=== PATIENT | female | born 1935 | race Caucasian/White ===

== ENCOUNTER 2017-11-03 12:16 | Inpatient (IN) | payer OTHER, MEDICARE ==
[2017-11-03] MEDS ORDERED: SODIUM CHLORIDE 0.9% 1000 ML INFUS.BAG IV ONE (13:17)
[2017-11-03] MEDS ORDERED: ONDANSETRON 4 MG/2 ML VIAL IVPUSH ONE (13:17)
[2017-11-03] MEDS ORDERED: ONDANSETRON 4 MG/2 ML VIAL ONE (13:44)
[2017-11-03 13:51] LABS: URINE APPEARANCE Cloudy; URINE BILIRUBIN 3+ (NEGATIVE); URINE BLOOD Negative (NEGATIVE); URINE GLUCOSE (UA) Negative (NEGATIVE); URINE KETONE Trace (NEGATIVE); URINE LEUK ESTERASE Negative (NEGATIVE); URINE NITRITE Negative (NEGATIVE); URINE UROBILINOGEN >=8.0 E.U./dl (0.2-1.0)
[2017-11-03 13:53] LABS: URINE COLOR AMBER; URINE PROTEIN 2+ (NEGATIVE)
[2017-11-03 13:54] LABS: URINE BACTERIA MANY /hpf (NEGATIVE); URINE RBC 0-2 /hpf (0-3)
[2017-11-03 14:56] LABS: HEMATOCRIT 41.9 % (32.4-45.2); HEMOGLOBIN 13.9 GM/dl (10.7-15.3); MCH 27.7 pg (25.7-33.7); MCHC 33.1 g/dl (32.0-36.0); MEAN CELL VOLUME 83.7 fl (80-96); MEAN PLT VOLUME 10.4 fl (7.5-11.1); PLATELET COUNT 391 K/MM3 (134-434); RBC 5.01 M/mm3 (3.60-5.2); RDW 15.6 % (11.6-15.6); WHITE BLOOD COUNT 23.5 K/mm3 (4.0-10.8)
--- NOTE | 2017-11-03 15:42 | PDOC ---
History of Present Illness - General Chief Complaint: Diarrhea Stated Complaint: WEAKNESS DIARRHEA Time Seen by Provider: 11/03/17 12:47 - History of Present Illness Initial Comments: 11/03/17 17:38 80 years old past medical history significant for polio chronic right venous- stasis ulcer who presents to the emergency department with several day history of profuse watery diarrhea. No significant abdominal pain positive nausea no fever mild headache daughter has noticed that she has been eating and drinking less and now appears jaundiced. No travel no 6 contacts no recent hospitalizations no recent antibiotics symptoms are moderate persistent constant no exacerbating alleviating factors Past History - Past Medical History Allergies/Adverse Reactions: Allergies Allergy/AdvReac Type Severity Reaction Status Date / Time famciclovir [From Famvir] Allergy Verified 08/06/15 09:39 Sulfa (Sulfonamide Allergy Verified 08/06/15 09:39 Antibiotics) Home Medications: Ambulatory Orders Ammonium Lactate Lotion [Lac-Hydrin 12] 1 applic TP ASDIR #1 bottle 05/31/16 Cholecalciferol (Vitamin D3) [Vitamin D3] 2,000 unit PO DAILY capsule 03/19/17 Cardiac Disorders: Yes (afib- eliquis) COPD: No HTN: Yes Other medical history: POLIO - Surgical History Orthopedic Surgery: Yes (hip/foot fusion) - Suicide/Smoking/Psychosocial Hx Smoking History: Former smoker Have you smoked in the past 12 months: No If you are a former smoker, when did you quit?: 47 YEARS AGO Information on smoking cessation initiated: No Hx Alcohol Use: No Drug/Substance Use Hx: No Substance Use Type: None Hx Substance Use Treatment: No Review of Systems - Review of Systems Comments:: 11/03/17 17:38 ROS: A complete review of 10 out of 10 review of systems is taken and is negative apart from what is previously mentioned below and in the HPI. *Physical Exam - Vital Signs Last Vital Signs Temp Pulse Resp BP Pulse Ox 98.1 F 87 16 135/90 97 11/03/17 12:18 11/03/17 12:18 11/03/17 12:18 11/03/17 12:18 11/03/17 12:18 - Physical Exam Comments: 11/03/17 17:39 Vitals: Triage Vital signs reviewed General Appearance: no acute distress, well nourished well developed, Head: Atraumatic, Neck: Supple;No Nucal rigidity Chest Wall: Nontender Cardiac: Regular rate and rhythym, no murmurs, no rubs, no gallops, Lungs: Clear to auscultation bilateral, good air movement bilaterally, Abdomen: Soft, non distended, normal bowel sounds, non tender to palpation Extremities: Full range of motion to all extremities, no cyanosis, clubbing, or edema Skin: Warm and dry, + jaundice Neuro: AOX3; Cranial Nerves 2-12 grossly intact, Strength intact to all extremities, Sensation intact to all extremities, Psych: normal mood, normal affect ED Treatment Course - LABORATORY CBC & Chemistry Diagram: 11/03/17 14:00 11/03/17 15:10 - ADDITIONAL ORDERS Additional order review: Laboratory Results 11/03/17 11/03/17 11/03/17 14:00 14:00 13:36 Sodium Cancelled Potassium Cancelled Chloride Cancelled Carbon Dioxide Cancelled Anion Gap Cancelled BUN Cancelled Creatinine Cancelled Creat Clearance w eGFR Cancelled Random Glucose Cancelled Calcium Cancelled Total Bilirubin Cancelled Cancelled Direct Bilirubin Cancelled AST Cancelled ALT Cancelled Alkaline Phosphatase Cancelled Total Protein Cancelled Albumin Cancelled Urine Color Kathi Urine Appearance Cloudy Urine pH 6.0 Ur Specific [place] 1.015 Urine Protein 2+ H Urine Glucose (UA) Negative Urine Ketones Trace Urine Blood Negative Urine Nitrite Negative Urine Bilirubin 3+ H Urine Urobilinogen >=8.0 e.u./dl H Ur Leukocyte Esterase Negative Urine RBC 0-2 Urine WBC 5-10 Ur Epithelial Cells 4-6 Urine Bacteria Many 11/03/17 14:00 RBC 5.01 MCV 83.7 MCHC 33.1 RDW 15.6 MPV 10.4 Neutrophils % No Result Required. Lymphocytes % No Result Required. - RADIOLOGY Radiology Studies Ordered: Category Date Time Status CXRPORT [CHEST X-RAY PORTABLE*] [RAD] Stat Radiology 11/03/17 13:16 Completed - Medications Given in the ED: ED Medications Discontinued Medications Generic Name Dose Route Start Last Admin Trade Name Freq PRN Reason Stop Dose Admin Ondansetron HCl 4 mg 11/03/17 13:17 11/03/17 14:00 Zofran Injection IVPUSH 11/03/17 13:18 4 mg ONCE ONE Administration Sodium Chloride 1,000 ml 11/03/17 13:17 02/12/18 14:11 Normal Saline - IV 11/03/17 13:18 1,000 ml ONCE ONE Administration Medical Decision Making - Critical Care Time Total Critical Care Time (minutes): 45 Critical Care Statement: The care of this patient involved high complexity decision making to prevent further life threatening deterioration of the patient 's condition and/or to evaluate & treat vital organ system(s) failure or risk of failure. - Medical Decision Making 11/03/17 17:39 History examination concerning for jaundice. Given profuse diarrhea we'll check stool cultures C. difficile. No abdominal pain on examination We'll check labs hydrate bilirubin and reassess Reevaluation for p.m. labs notable for elevated bilirubin elevated LFTs elevated alkaline phosphatase and white blood cell count of 23 Patient hemodynamically stable blood cultures and Zosyn ordered for empiric antibiotic coverage Case discussed with Dr. Bejarano gastroenterology Recommends MRCP agrees with antibiotic coverage MRCP ordered radiology called in We'll admit to hospitalist for further management and follow-up of MRCP and additional GI follow-up and consultation *DC/Admit/Observation/Transfer Diagnosis at time of Disposition: Jaundice - Discharge Dispostion Admit: Yes - Referrals Referrals: Umang Marks MD [Primary Care Provider] - - Patient Instructions - Post Discharge Activity
[2017-11-03 15:45] LABS: ALBUMIN 2.8 g/dl (3.5-5.0); ALK PHOS 396 U/L (32-92); ANION GAP 8 (8-16); BILIRUBIN,TOTAL 7.4 mg/dl (0.2-1.0); BLOOD UREA NITROGEN 16 mg/dl (7-18); CALCIUM 8.2 mg/dl (8.4-10.2); CHLORIDE 105 mmol/L (98-107); CO2 25 mmol/L (22-28); CREATININE 0.4 mg/dl (0.6-1.3); GLUCOSE,RANDOM 128 mg/dl (74-106); POTASSIUM 3.3 mmol/L (3.5-5.1); SGOT/AST 61 U/L (10-42); SGPT/ALT 87 U/L (10-40); SODIUM 138 mmol/L (136-145); TOT PROT 6.3 g/dl (6.4-8.3)
[2017-11-03] MEDS ORDERED: PIPERACIL/TAZOB 3.375 GM 3.375 GM/50 ML PREMIX IVPB ONE (16:17)
[2017-11-03] MEDS ORDERED: PIPERACILLIN/TAZOB 3.375 GM 50 ML IVPB ONE (16:30)
[2017-11-03] MEDS ORDERED: PIPERACILLIN/TAZOBACTAM 3.375 GM VIAL IVPB ONE (16:47)
--- NOTE | 2017-11-03 17:22 | CON.GI ---
Consult Consult Specialty:: GI Reason for Consultation:: Jaundice - History of Present Illness History of Present Illness: An 82 yof. Painless jaundice x 3 days and foul smelling diarrhea. No nausea, vomiting, fever, chills. No weight loss in the last 12 months. No dysphagia, odynophagia, dyspepsia. No prior episodes of the the same, no history of pnacreaticobiliary problems. No risk factors for pancreatitis. Labs show cholestasis, leuokocytosis. MRCP consistent with chledocolithiasis, dilated proximal to the stone CBD and cholelithiasis. A 0.6 cm pancreatic cyst communicating with the PD was also described. Took Eliquis in the morning of 09/08. History by the pt and her daughter - History Source History Provided By: Patient, Family Member, Medical Record Limitations to Obtaining History: No Limitations - Alcohol/Substance Use Hx Alcohol Use: No - Smoking History Smoking history: Former smoker Have you smoked in the past 12 months: No If you are a former smoker, when did you quit?: 47 YEARS AGO Home Medications - Allergies Allergies/Adverse Reactions: Allergies Allergy/AdvReac Type Severity Reaction Status Date / Time famciclovir [From Famvir] Allergy Verified 08/06/15 09:39 Sulfa (Sulfonamide Allergy Verified 08/06/15 09:39 Antibiotics) - Home Medications Home Medications: Ambulatory Orders Ammonium Lactate Lotion [Lac-Hydrin 12] 1 applic TP ASDIR #1 bottle 05/31/16 Cholecalciferol (Vitamin D3) [Vitamin D3] 2,000 unit PO DAILY capsule 03/19/17 Family Disease History - Family Disease History Family History: Unremarkable Review of Systems Findings/Remarks: As per HPI, and H&P Physical Exam-GI Vital Signs: Vital Signs Temperature 98.1 F 11/03/17 12:18 Pulse Rate 87 11/03/17 12:18 Respiratory Rate 16 11/03/17 12:18 Blood Pressure 135/90 11/03/17 12:18 O2 Sat by Pulse Oximetry (%) 97 11/03/17 12:18 Constitutional: Yes: Well Nourished, No Distress, Calm Eyes: Yes: Sclera Icterus HENT: Yes: Atraumatic Neck: Yes: Supple Cardiovascular: Yes: Regular Rate and Rhythm Respiratory: Yes: Regular, CTA Bilaterally Gastrointestinal Inspection: No: Ascites, Distention ...Auscultate: Yes: Normoactive Bowel Sounds ...Palpate: Yes: Soft. No: Firm/Rigid, Guarding, Mass, Tenderness, Tenderness, Epigastium, Tenderness, Rebound Neurological: Yes: Alert, Oriented Labs: CBC, BMP 11/03/17 14:00 11/03/17 15:10 Abnormal Lab Results 11/03/17 11/03/17 11/03/17 13:36 14:00 15:10 WBC 23.5 H D Neutrophils % (Manual) 90.0 H Lymphocytes % (Manual) 6.0 L Monocytes % (Manual) 2 L Potassium 3.3 L Anion Gap Creatinine 0.4 L Random Glucose 128 H Calcium 8.2 L Magnesium Total Bilirubin 7.4 H D Direct Bilirubin 5.0 H AST 61 H D ALT 87 H D Alkaline Phosphatase 396 H D Total Protein 6.3 L Albumin 2.8 L D Urine Protein 2+ H Urine Bilirubin 3+ H Urine Urobilinogen >=8.0 e.u./dl H 11/04/17 11/04/17 11/04/17 06:00 07:30 07:45 WBC Neutrophils % (Manual) Lymphocytes % (Manual) Monocytes % (Manual) Potassium 2.8 L* Anion Gap 6 L Creatinine 0.3 L D Random Glucose Calcium 8.0 L Magnesium 1.7 L 1.7 L Total Bilirubin 7.0 H Direct Bilirubin 4.5 H AST 43 H D ALT 61 H D Alkaline Phosphatase 309 H D Total Protein 5.5 L Albumin 2.4 L Urine Protein Urine Bilirubin Urine Urobilinogen Imaging - Results MRI: Report Reviewed Problem List - Problems (1) Choledocholithiasis Code(s): K80.50 - CALCULUS OF BILE DUCT W/O CHOLANGITIS OR CHOLECYST W/O OBST (2) Pancreatic cyst Code(s): K86.2 - CYST OF PANCREAS (3) Anticoagulant long-term use Code(s): Z79.01 - SUSTAINABILITY EXECUTIVE DIRECTOR (CURRENT) USE OF ANTICOAGULANTS (4) History of anticoagulant use Code(s): Z92.29 - PERSONAL HISTORY OF OTHER DRUG THERAPY (5) Atrial fibrillation Code(s): I48.91 - UNSPECIFIED ATRIAL FIBRILLATION Qualifiers: Atrial fibrillation type: unspecified Qualified Code(s): I48.91 - Unspecified atrial fibrillation (6) Infected stasis ulcer of right lower extremity Code(s): I83.219 - VARICOS VN OF R LOW EXTREM W ULC OF UNSP SITE AND INFLAM Assessment/Plan An 82 yof with painless jaundice, cholelithiasis, cholestasis and choledocholithiasis on imaging. Possible concomitant cholangitis given the leukocytosis, however no signs, or symptoms other than jaundice elicited in history or on the exam. Afebrile, not in distress, normal hemodynamics. ERCP Eliquis is on hold (last dose taken in am of 11/03/17) Close monitoring for worsening clinical condition CMP with direct bili, CBC, PT/INR daily Zosyn and flagyl, or as per ID IVF NPO Antiemetic/Pain management PRN Stool for c. diff toxin Work up of the pancreatic cyst noted on MRCP after the acute issues have been addressed Discussed with the patient and her daughter
[2017-11-03] MEDS ORDERED: PANTOPRAZOLE SODIUM 40 MG VIAL IVPUSH ONE (17:24)
[2017-11-03] MEDS: SODIUM CHLORIDE 1,000 ML IV SCH (17:25)
[2017-11-03] MEDS ORDERED: KCL 10 MEQ IVPB 10 MEQ/100 ML INFUS.BAG IVPB SCH (17:30)
[2017-11-03] MEDS ORDERED: PANTOPRAZOLE SODIUM 40 MG VIAL ONE (17:35)
[2017-11-03] MEDS ORDERED: KCL 10 MEQ IVPB 10 MEQ/100 ML INFUS.BAG IVPB ONE (17:35)
[2017-11-03 21:00] LABS: PLATELET ESTIMATE ADEQUATE
[2017-11-03 22:31] VITALS: BMI 27.5
[2017-11-03] MEDS: APIXABAN 2.5 MG TABLET PO SCH ×2 (22:41→22:52)
--- NOTE | 2017-11-03 22:45 | HP ---
CHIEF COMPLAINT: jaundice PCP: [facility] HISTORY OF PRESENT ILLNESS: This is an 82 year old female who presented to the ED with jaundice, decreased po intake x 1 week and LBM. Pt denies any decrease in her intake; however daughter had reports this to the ED staff. Pt states she had one loose bowel movement yesterday evening. None since. She denies any abdominal pain but does report nausea. Denies fever or chills. ER course was notable for: (1) WBC 23.5 (2) T Bili 7.4, D Bili 5.0, AST 61, ALT 87, Alk Phos 396 (3) K 3.3 Recent Travel: pt denies PAST MEDICAL HISTORY: Polio, Chronic RLE venous stasis ulcer, HTN, AFib on Eliquis PAST SURGICAL HISTORY: corrective hip surgery as a child for polio, mult tendon repairs for same Social History: Smoking: pt denies Alcohol: pt denies Drugs: pt denies Family History: mother age 62, uknown ? [place] father in his 70s, peritonitis 3 sisters BrCA 5 sisters alive and well Allergies famciclovir [From Famvir] Allergy (Verified 08/06/15 09:39) Sulfa (Sulfonamide Antibiotics) Allergy (Verified 08/06/15 09:39) HOME MEDICATIONS: 3 Medication Instructions Recorded Ammonium Lactate Lotion 1 applic TP ASDIR #1 bottle 05/31/16 [Lac-Hydrin 12] Cholecalciferol (Vitamin D3) 2,000 unit PO DAILY capsule 03/19/17 [Vitamin D3] REVIEW OF SYSTEMS CONSTITUTIONAL: Present: loss of appetite Absent: fever, chills, diaphoresis, generalized weakness, malaise, weight change HEENT: Absent: rhinorrhea, nasal congestion, throat pain, throat swelling, difficulty swallowing, mouth swelling, ear pain, eye pain, visual changes CARDIOVASCULAR: Absent: chest pain, syncope, palpitations, irregular heart rate, lightheadedness , peripheral edema RESPIRATORY: Absent: cough, shortness of breath, dyspnea with exertion, orthopnea, wheezing, stridor, hemoptysis GASTROINTESTINAL: Present: nausea Absent: abdominal pain, abdominal distension, vomiting, diarrhea, constipation, melena, hematochezia GENITOURINARY: Absent: dysuria, frequency, urgency, hesitancy, hematuria, flank pain, genital pain MUSCULOSKELETAL: Absent: myalgia, arthralgia, joint swelling, back pain, neck pain SKIN: Absent: rash, itching, pallor HEMATOLOGIC/IMMUNOLOGIC: Absent: easy bleeding, easy bruising, lymphadenopathy, frequent infections ENDOCRINE: Absent: unexplained weight gain, unexplained weight loss, heat intolerance, cold intolerance NEUROLOGIC: Absent: headache, focal weakness or paresthesias, dizziness, unsteady gait, seizure, mental status changes, bladder or bowel incontinence PSYCHIATRIC: Absent: anxiety, depression, suicidal or homicidal ideation, hallucinations. PHYSICAL EXAMINATION Vital Signs - 24 hr 3 11/03/17 12:18 Temperature 98.1 F Pulse Rate 87 Respiratory 16 Rate Blood Pressure 135/90 O2 Sat by Pulse 97 Oximetry (%) GENERAL: Awake, alert, and fully oriented, in no acute distress. HEAD: Normal with no signs of trauma. EYES: Pupils equal, round and reactive to light, extraocular movements intact, sclera icteric, conjunctiva clear. No lid lag. EARS, NOSE, THROAT: Ears normal, nares patent, oropharynx clear without exudates. Moist mucous membranes. NECK: Normal range of motion, supple without lymphadenopathy, JVD, or masses. LUNGS: Breath sounds equal, clear to auscultation bilaterally. No wheezes, and no crackles. No accessory muscle use. HEART: Regular rate and rhythm, normal S1 and S2 without murmur, rub or gallop. ABDOMEN: Soft, nontender, not distended, normoactive bowel sounds, no guarding, no rebound, no masses. MUSCULOSKELETAL: Normal range of motion at all joints. No bony deformities or tenderness. No CVA tenderness. UPPER EXTREMITIES: 2+ pulses, warm, well-perfused. No cyanosis. No clubbing. No peripheral edema. LOWER EXTREMITIES: 2+ pulses, warm, well-perfused. No calf tenderness. No peripheral edema left, RLE with mild erythema and 1+ edema below knee 1/[address] way [address] NEUROLOGICAL: Cranial nerves II-XII intact. Normal speech. Normal gait. PSYCHIATRIC: Cooperative. Good eye contact. Appropriate mood and affect. SKIN: Warm, dry, normal turgor, no rashes or lesions noted, normal capillary refill. mild jaundice noted Laboratory Results - last 24 hr 3 11/03/17 11/03/17 11/03/17 13:36 14:00 14:00 WBC 23.5 H D RBC 5.01 Hgb 13.9 Hct 41.9 MCV 83.7 MCH 27.7 MCHC 33.1 RDW 15.6 Plt Count 391 MPV 10.4 Neutrophils % No Result Required. Neutrophils % (Manual) 90.0 H Band Neutrophils % 2.0 Lymphocytes % No Result Required. Lymphocytes % (Manual) 6.0 L Monocytes % (Manual) 2 L Platelet Estimate Adequate Sodium Cancelled Potassium Cancelled Chloride Cancelled Carbon Dioxide Cancelled Anion Gap Cancelled BUN Cancelled Creatinine Cancelled Creat Clearance w eGFR Cancelled Random Glucose Cancelled Lactic Acid Calcium Cancelled Total Bilirubin Cancelled Direct Bilirubin AST Cancelled ALT Cancelled Alkaline Phosphatase Cancelled Total Protein Cancelled Albumin Cancelled Lipase Urine Color Kathi Urine Appearance Cloudy Urine pH 6.0 Ur Specific [place] 1.015 Urine Protein 2+ H Urine Glucose (UA) Negative Urine Ketones Trace Urine Blood Negative Urine Nitrite Negative Urine Bilirubin 3+ H Urine Urobilinogen >=8.0 e.u./dl H Ur Leukocyte Esterase Negative Urine RBC 0-2 Urine WBC 5-10 Ur Epithelial Cells 4-6 Urine Bacteria Many 3 11/03/17 11/03/17 11/03/17 11/03/17 14:00 15:10 15:10 17:00 WBC RBC Hgb Hct MCV MCH MCHC RDW Plt Count MPV Neutrophils % Neutrophils % (Manual) Band Neutrophils % Lymphocytes % Lymphocytes % (Manual) Monocytes % (Manual) Platelet Estimate Sodium 138 Potassium 3.3 L Chloride 105 Carbon Dioxide 25 Anion Gap 8 BUN 16 Creatinine 0.4 L Creat Clearance w eGFR > 60 Random Glucose 128 H Lactic Acid 1.1 Calcium 8.2 L Total Bilirubin Cancelled 7.4 H D Direct Bilirubin Cancelled 5.0 H AST 61 H D ALT 87 H D Alkaline Phosphatase 396 H D Total Protein 6.3 L Albumin 2.8 L D Lipase 121 Urine Color Urine Appearance Urine pH Ur Specific [place] Urine Protein Urine Glucose (UA) Urine Ketones Urine Blood Urine Nitrite Urine Bilirubin Urine Urobilinogen Ur Leukocyte Esterase Urine RBC Urine WBC Ur Epithelial Cells Urine Bacteria ECG Atrial fibrillation vent rate 65, QTC [address]/T wave changes Radiology Reports MRI Abdomen/MRCP IMPRESSION: Choledocholithiasis is identified as discussed above with resultant biliary tract dilatation. Cholelithiasis. 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 Moderate to large hiatal hernia. Reported By: Jaylon Bella MD 11/03/17 [id number] ASSESSMENT/PLAN: 82yF with PMH Polio, Chronic RLE venous stasis ulcer, HTN, AFib on Eliquis presented to the ED with painless jaundice, decreased appetite and nausea. Choledocholithiasis with cholangitis and biliary tract obstruction - GI Dr. Bejarano who recommends transfer to [facility] for ERCP, order placed for same and nursing record press supervisor made aware - Cont flagyl and zosyn as per GI. ID consult placed for approval. - NPO - hold eliquis for procedure ? IPMN on MRI - will need outpatient follow up and work up of same. Afib/HTN - hold eliquis - rate controlled, cont toprol and nifedipine with a sip of water; hold for low BP or HR DVT PPX - restart Eliquis after ERCP if no further surgical intervention indicated FEN - D51/2NS +20 KCl @ 83 cc/hr - K repleted [id number], BMP in am - NPO Dispo: Pt currently requires inpatient management of her emergent condition. Visit type - Emergency Visit Emergency Visit: Yes ED Registration Date: 11/03/17 Care time: The patient presented to the Emergency Department on the above date and was hospitalized for further evaluation of their emergent condition. - New Patient This patient is new to me today: Yes Date on this admission: 11/03/17 - Critical Care Critical Care patient: No Hospitalist Screening - Patient: 50 - 75 years old and never had a screening colonoscopy: No History of colon or rectal polyps, or CA: No History of IBD, Crohn's disease or UC: No History of abdominal radiation therapy as a child: No - Relative: 1 with colon or rectal CA, or polyps at age 60 or younger: Unknown Colon or rectal CA diagnosed at age 45 or younger: Unknown Multiple relatives with colon or rectal CA: Unknown - Outcome: Screening Result: Negative Screen
[2017-11-03] MEDS ORDERED: PIPERACILLIN/TAZOB 3.375 GM/50 ML PRE-DOCKED IVPB ONE (22:47)
[2017-11-04] MEDS: D5-1/2NS+20 MEQ KCL - 20 MEQ/1,000 ML INFUS.BAG IV SCH ×2 (03:36→23:05)
[2017-11-04] MEDS ORDERED: PIPERACILLIN/TAZOB 3.375 GM/50 ML PRE-DOCKED IVPB ONE (06:12)
[2017-11-04 08:18] LABS: ALBUMIN 2.4 g/dl (3.5-5.0); ALK PHOS 309 U/L (32-92); ANION GAP 6 (8-16); BILIRUBIN,DIRECT 4.5 mg/dL (0.0-0.3); BLOOD UREA NITROGEN 10 mg/dl (7-18); CHLORIDE 106 mmol/L (98-107); CO2 25 mmol/L (22-28); CREATININE 0.3 mg/dl (0.6-1.3); GLUCOSE,RANDOM 98 mg/dl (74-106); SGOT/AST 43 U/L (10-42); SGPT/ALT 61 U/L (10-40); SODIUM 137 mmol/L (136-145); TOT PROT 5.5 g/dl (6.4-8.3)
[2017-11-04 08:42] LABS: POTASSIUM 2.8 mmol/L (3.5-5.1)
[2017-11-04 08:51] LABS: BASO % 0.5 % (0-2.0); EOS % 0.9 % (0-4.5); HEMATOCRIT 35.3 % (32.4-45.2); HEMOGLOBIN 11.8 GM/dl (10.7-15.3); LYMPH % 20.2 % (8-40); MCH 27.9 pg (25.7-33.7); MCHC 33.5 g/dl (32.0-36.0); MEAN CELL VOLUME 83.2 fl (80-96); MEAN PLT VOLUME 9.7 fl (7.5-11.1); MONO % 9.1 % (3.8-10.2); NEUT % 69.3 % (42.8-82.8); PLATELET COUNT 295 K/MM3 (134-434); RBC 4.24 M/mm3 (3.60-5.2); RDW 15.4 % (11.6-15.6); WHITE BLOOD COUNT 10.6 K/mm3 (4.0-10.8)
[2017-11-04] MEDS: KCL 10 MEQ IVPB 10 MEQ/100 ML INFUS.BAG IVPB SCH ×3 (09:00→12:28)
[2017-11-04] MEDS ORDERED: MAGNESIUM SULFATE IN WATER 2 GM/50 ML IVPB IVPB ONE (09:30)
--- NOTE | 2017-11-04 09:36 | PN ---
Progress Note (short form) - Note Progress Note: ID Consult dictated 82 year old female admitted with anorexia, watery diarrhea, jaundice. Seen by GI. MRCP ordered, reveals choledocholithiasis and pancreatic cysts. WBC 23K R/O biliary sepsis Leukocytosis ? cellulitis R LE Await c/s Continue empiric zosyn/ flagyl, stat dose vancomycin For ERCP
[2017-11-04] MEDS ORDERED: NIFEdipine E.R. 90 MG TABLET (FP) PO SCH (10:00)
[2017-11-04] MEDS: POTASSIUM CHLORIDE TABS 20 MEQ TABLET.ER (FP) PO ONE ×2 (10:27→10:48)
[2017-11-04] MEDS ORDERED: VANCOMYCIN 1 GRAM (PRE-DOCKED) 1,000 MG/250 ML BAG IVPB ONE (10:30)
[2017-11-04] MEDS: NIFEdipine E.R. 90 MG TABLET (FP) PO SCH (10:48)
--- NOTE | 2017-11-04 10:59 | PN ---
Physical Exam: SUBJECTIVE: Patient seen and examined, ambulatory at bedside, denies any abdominal pain OBJECTIVE: patient is a 82 y/o female with a past medical history of Polio, Chronic RLE venous stasis ulcer, HTN, AFib on Eliquis. patient was admitted from the emergency department for emergent condition. Vital Signs Period Temp Pulse Resp BP Sys/Sequeira Pulse Ox Last 24 Hr 97.8 F-98.9 F 67-87 16-20 119-135/56-90 96-97 GENERAL: The patient is awake, alert, and fully oriented, in no acute distress. HEAD: Normal with no signs of trauma. EYES: PERRL, extraocular movements intact, sclera icteric, conjunctiva clear. No ptosis. ENT: Ears normal, nares patent, oropharynx clear without exudates, moist mucous membranes. NECK: Trachea midline, full range of motion, supple. LUNGS: Breath sounds equal, clear to auscultation bilaterally, no wheezes, no crackles, no accessory muscle use. HEART: irregular rate and rhythm, S1, S2 without murmur, rub or gallop. ABDOMEN: Soft, nontender, nondistended, normoactive bowel sounds, no guarding, no rebound, no hepatosplenomegaly, no masses. EXTREMITIES: 2+ pulses, warm, well-perfused, no edema. NEUROLOGICAL: Cranial nerves II through XII grossly intact. Normal speech, gait not observed. PSYCH: Normal mood, normal affect. SKIN: Warm, dry, normal turgor, no rashes or lesions noted Laboratory Results - last 24 hr CBC WBC 10.6 K/mm3 (4.0-10.8) D 11/04/17 07:45 RBC 4.24 M/mm3 (3.60-5.2) 11/04/17 07:45 Hgb 11.8 GM/dl (10.7-15.3) D 11/04/17 07:45 Hct 35.3 % (32.4-45.2) D 11/04/17 07:45 MCV 83.2 fl (80-96) 11/04/17 07:45 MCH 27.9 pg (25.7-33.7) 11/04/17 07:45 MCHC 33.5 g/dl (32.0-36.0) 11/04/17 07:45 RDW 15.4 % (11.6-15.6) 11/04/17 07:45 Plt Count 295 K/MM3 (134-434) 11/04/17 07:45 MPV 9.7 fl (7.5-11.1) 11/04/17 07:45 Neutrophils % 69.3 % (42.8-82.8) 11/04/17 07:45 Neutrophils % (Manual) 90.0 % (42.8-82.8) H 11/03/17 14:00 Band Neutrophils % 2.0 % (0-10) 11/03/17 14:00 Lymphocytes % 20.2 % (8-40) 11/04/17 07:45 Lymphocytes % (Manual) 6.0 % (8-40) L 11/03/17 14:00 Monocytes % 9.1 % (3.8-10.2) 11/04/17 07:45 Monocytes % (Manual) 2 % (3.8-10.2) L 11/03/17 14:00 Eosinophils % 0.9 % (0-4.5) 11/04/17 07:45 Basophils % 0.5 % (0-2.0) 11/04/17 07:45 Platelet Estimate Adequate 11/03/17 14:00 CMP Sodium 137 mmol/L (136-145) 11/04/17 07:45 Potassium 2.8 mmol/L (3.5-5.1) L* 11/04/17 07:45 Chloride 106 mmol/L (98-107) 11/04/17 07:45 Carbon Dioxide 25 mmol/L (22-28) 11/04/17 07:45 Anion Gap 6 (8-16) L 11/04/17 07:45 BUN 10 mg/dl (7-18) D 11/04/17 07:45 Creatinine 0.3 mg/dl (0.6-1.3) L D 11/04/17 07:45 Creat Clearance w eGFR > 60 (>60) 11/04/17 07:45 Random Glucose 98 mg/dl (74-106) D 11/04/17 07:45 Lactic Acid 1.1 mmol/L (0.0-2.0) 11/03/17 15:10 Calcium 8.0 mg/dl (8.4-10.2) L 11/04/17 07:45 Phosphorus 2.9 mg/dl (2.5-4.6) 11/04/17 06:00 Magnesium 1.7 mg/dL (1.8-2.4) L 11/04/17 07:30 Total Bilirubin 7.0 mg/dl (0.2-1.0) H 11/04/17 07:45 Direct Bilirubin 4.5 mg/dL (0.0-0.3) H 11/04/17 07:45 AST 43 U/L (10-42) H D 11/04/17 07:45 ALT 61 U/L (10-40) H D 11/04/17 07:45 Alkaline Phosphatase 309 U/L (32-92) H D 11/04/17 07:45 Total Protein 5.5 g/dl (6.4-8.3) L 11/04/17 07:45 Albumin 2.4 g/dl (3.5-5.0) L 11/04/17 07:45 Lipase 121 U/L (73-393) 11/03/17 17:00 Active Medications Generic Name Dose Route Start Last Admin Trade Name Freq PRN Reason Stop Dose Admin Sodium Chloride 1,000 mls @ 75 mls/hr 11/03/17 17:30 11/03/17 17:25 Normal Saline - IV 75 mls/hr ASDIR [facility] Administration Metronidazole 500 mg in 100 mls @ 100 mls/hr 11/04/17 03:00 11/04/17 10:27 Flagyl 500mg Premixed Ivpb - IVPB 100 mls/hr Q6H-IV [facility] Administration Potassium Chloride/Dextrose/Sod Cl 20 meq in 1,000 mls @ 83 mls/hr 11/04/17 02 :30 11/04/17 03:36 D5-1/2ns+20 Meq Kcl - IV 83 mls/hr ASDIR [facility] Administration Potassium Chloride 10 meq in 100 mls @ 100 mls/hr 11/04/17 09:05 11/04/17 10: 49 Potassium Chloride 10 Meq Premix Ivpb - IVPB 11/04/17 12:04 100 mls/hr Q60M [facility] Administration Piperacillin Sod/Tazobactam Sod 3.375 gm in 50 mls @ 100 mls/hr 11/04/17 18: 00 Zosyn 3.375gm Ivpb (Pre-Docked) IVPB Q8H-IV [facility] Protocol Vancomycin HCl 1,000 mg in 250 mls @ 200 mls/hr 11/04/17 10:30 11/04/17 10:49 Vancomycin (Pre-Docked) IVPB 11/04/17 11:44 200 mls/hr ONCE ONE Administration Metoprolol Succinate 50 mg 11/04/17 10:00 11/04/17 10:50 Toprol Xl - PO 50 mg DAILY [facility] Administration Nifedipine 90 mg 11/04/17 10:00 11/04/17 10:48 Procardia Xl - PO 90 mg DAILY [facility] Administration ECG Atrial fibrillation vent rate 65, QTC [address]/T wave changes Radiology Reports MRI Abdomen/MRCP IMPRESSION: Choledocholithiasis is identified as discussed above with resultant biliary tract dilatation. Cholelithiasis. 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 Moderate to large hiatal hernia. Reported By: Jaylon Bella MD 11/03/17 0313 ASSESSMENT/PLAN: 1) GI Choledocholithiasis with cholangitis and biliary tract obstruction - pending ercp - GI Dr. Bejarano consulted and followed - leukocytosis improving, pending blood cultures, continue zosyn and NKECHI ennis (Sanjiv) consulted and following - keep npo -->ivf ? IPMN on MRI - ca 19.9 ordered - pending ercp for biopsy - will need outpatient follow up and work up of same. 2) cardiovascular Afib/HTN - hold eliquis, pending procedure - rate controlled, cont toprol and nifedipine with a sip of water; hold for low BP or HR DVT PPX - restart Eliquis after ERCP if no further surgical intervention indicated FEN - D51/2NS +20 KCl @ 83 cc/hr - hyokalemia, replete potassium 10meq x 3, with po potassium, repeat bmp at 1600 - NPO Dispo: Pt currently requires inpatient management of her emergent condition. [facility] full code Visit type - Emergency Visit Emergency Visit: Yes ED Registration Date: 11/03/17 Care time: The patient presented to the Emergency Department on the above date and was hospitalized for further evaluation of their emergent condition. - New Patient This patient is new to me today: Yes Date on this admission: 11/04/17 - Critical Care Critical Care patient: No - Discharge Referral Referred to [facility] No
[2017-11-04 11:31] LABS: MAGNESIUM 1.7 mg/dL (1.8-2.4); PHOSPHOROUS 2.9 mg/dl (2.5-4.6)
--- NOTE | 2017-11-04 12:36 | PN ---
Progress Note, Physician History of Present Illness: Clinically the same. Jaundiced, otherwise asymptomatic. Diarrhea improved. Leukocytosis improved. Liver profile marginally better. Daughter at bedside - Current Medication List Current Medications: Active Medications Sodium Chloride (Normal Saline -) 1,000 mls @ 75 mls/hr IV ASDIR [facility] Last Admin: 11/03/17 17:25 Dose: 75 mls/hr Metronidazole (Flagyl 500mg Premixed Ivpb -) 500 mg in 100 mls @ 100 mls/hr IVPB Q6H-IV [facility] Last Admin: 11/04/17 10:27 Dose: 100 mls/hr Potassium Chloride/Dextrose/Sod Cl (D5-1/2ns+20 Meq Kcl -) 20 meq in 1,000 mls @ 83 mls/hr IV ASDIR [facility] Last Admin: 11/04/17 03:36 Dose: 83 mls/hr Piperacillin Sod/Tazobactam Sod (Zosyn 3.375gm Ivpb (Pre-Docked)) 3.375 gm in 50 mls @ 100 mls/hr IVPB Q8H-IV [facility] PRN Reason: Protocol Metoprolol Succinate (Toprol Xl -) 50 mg PO DAILY [facility] Last Admin: 11/04/17 10:50 Dose: 50 mg Nifedipine (Procardia Xl -) 90 mg PO DAILY [facility] Last Admin: 11/04/17 10:48 Dose: 90 mg - Objective Vital Signs: Vital Signs Temperature 97.8 F 11/04/17 06:00 Pulse Rate 80 11/04/17 06:00 Respiratory Rate 20 11/04/17 08:25 Blood Pressure 119/56 11/04/17 06:00 O2 Sat by Pulse Oximetry (%) 96 11/04/17 08:25 Constitutional: Yes: Well Nourished, No Distress, Calm Eyes: Yes: Sclera Icterus HENT: Yes: Atraumatic Neck: Yes: Supple Respiratory: Yes: Regular Gastrointestinal: Yes: Normal Bowel Sounds, Soft. No: Ascites, Distention, Melena, Tenderness, Vomiting Neurological: Yes: Alert, Oriented Labs: CBC, BMP 11/04/17 07:45 11/04/17 07:45 CBCD WBC 10.6 K/mm3 (4.0-10.8) D 11/04/17 07:45 RBC 4.24 M/mm3 (3.60-5.2) 11/04/17 07:45 Hgb 11.8 GM/dl (10.7-15.3) D 11/04/17 07:45 Hct 35.3 % (32.4-45.2) D 11/04/17 07:45 MCV 83.2 fl (80-96) 11/04/17 07:45 MCHC 33.5 g/dl (32.0-36.0) 11/04/17 07:45 RDW 15.4 % (11.6-15.6) 11/04/17 07:45 Plt Count 295 K/MM3 (134-434) 11/04/17 07:45 MPV 9.7 fl (7.5-11.1) 11/04/17 07:45 CMP Sodium 137 mmol/L (136-145) 11/04/17 07:45 Potassium 2.8 mmol/L (3.5-5.1) L* 11/04/17 07:45 Chloride 106 mmol/L (98-107) 11/04/17 07:45 Carbon Dioxide 25 mmol/L (22-28) 11/04/17 07:45 Anion Gap 6 (8-16) L 11/04/17 07:45 BUN 10 mg/dl (7-18) D 11/04/17 07:45 Creatinine 0.3 mg/dl (0.6-1.3) L D 11/04/17 07:45 Creat Clearance w eGFR > 60 (>60) 11/04/17 07:45 Calcium 8.0 mg/dl (8.4-10.2) L 11/04/17 07:45 Total Bilirubin 7.0 mg/dl (0.2-1.0) H 11/04/17 07:45 AST 43 U/L (10-42) H D 11/04/17 07:45 ALT 61 U/L (10-40) H D 11/04/17 07:45 Alkaline Phosphatase 309 U/L (32-92) H D 11/04/17 07:45 Total Protein 5.5 g/dl (6.4-8.3) L 11/04/17 07:45 Albumin 2.4 g/dl (3.5-5.0) L 11/04/17 07:45 Problem List - Problems (1) Choledocholithiasis Code(s): K80.50 - CALCULUS OF BILE DUCT W/O CHOLANGITIS OR CHOLECYST W/O OBST (2) Pancreatic cyst Code(s): K86.2 - CYST OF PANCREAS (3) Anticoagulant long-term use Code(s): Z79.01 - ODD PIECE CHECKER (CURRENT) USE OF ANTICOAGULANTS (4) History of anticoagulant use Code(s): Z92.29 - PERSONAL HISTORY OF OTHER DRUG THERAPY (5) Atrial fibrillation Code(s): I48.91 - UNSPECIFIED ATRIAL FIBRILLATION Qualifiers: Atrial fibrillation type: unspecified Qualified Code(s): I48.91 - Unspecified atrial fibrillation (6) Infected stasis ulcer of right lower extremity Code(s): I83.219 - VARICOS VN OF R LOW EXTREM W ULC OF UNSP SITE AND INFLAM Assessment/Plan Remains clinically stable. ERCP in AM tomorrow (Eliquis) Close monitoring for worsening clinical condition CMP with direct bili, CBC, PT/INR daily Zosyn and flagyl, or as per ID IVF NPO Antiemetic/Pain management PRN Stool for c. diff toxin Work up of the pancreatic cyst noted on MRCP after the acute issues have been addressed Discussed with the patient and her daughter
--- NOTE | 2017-11-04 14:03 | EKG ---
Test Reason : Blood Pressure : / mmHG Vent. Rate : 065 BPM Atrial Rate : 079 BPM P-R Int : 000 ms QRS Dur : 100 ms QT Int : 422 ms P-R-T Axes : 000 -28 023 degrees QTc Int : 438 ms ATRIAL FIBRILLATION INFERIOR INFARCT , AGE UNDETERMINED ABNORMAL ECG NO PREVIOUS ECGS AVAILABLE Confirmed by MD Deena, Sincere ([id number]) on 11/04/2017 2:02:55 PM Referred By: Genny TRIPP Confirmed By:Sincere Shaffer MD
[2017-11-04 17:15] LABS: ANION GAP 6 (8-16); BLOOD UREA NITROGEN 8 mg/dl (7-18); CALCIUM 8.3 mg/dl (8.4-10.2); CHLORIDE 104 mmol/L (98-107); CO2 24 mmol/L (22-28); CREATININE 0.3 mg/dl (0.6-1.3); GLUCOSE,RANDOM 82 mg/dl (74-106); SODIUM 134 mmol/L (136-145)
[2017-11-04] MEDS ORDERED: PT OWN MED DRAWER 7, Y5N ONE (17:20)
[2017-11-04] MEDS: SODIUM CHLORIDE 1,000 ML IV SCH (17:34)
[2017-11-04] MEDS ORDERED: PIPERACILLIN/TAZOB 3.375 GM 3.375 GM/50 ML BAG IVPB SCH (18:00)
--- NOTE | 2017-11-04 23:21 | HOSP ---
Subjective - Review of Symptoms Events since last encounter: Pt transferred from [facility]/Surg to [facility] for ERCP in am tomorrow. Subjective: Pt reports no acute complaints on exam. Continues with no appetite. Denies pain. General: No: Chills Cardiovascular: No: Chest Pain Gastrointestinal: No: Nausea, Vomiting, Abdominal Pain, Diarrhea Physical Examination Vital Signs: Vital Signs Temperature 98.3 F 11/04/17 21:51 Pulse Rate 74 11/04/17 21:51 Respiratory Rate 18 11/04/17 21:51 Blood Pressure 118/81 11/04/17 21:51 O2 Sat by Pulse Oximetry (%) 95 11/04/17 20:28 Constitutional: Yes: No Distress, Calm Eyes: Yes: Sclera Icterus Cardiovascular: Yes: Regular Rate and Rhythm, S1, S2 Respiratory: Yes: CTA Bilaterally Gastrointestinal: Yes: Normal Bowel Sounds, Soft. No: Tenderness Edema: Yes Edema: RLE: Trace (+ slight erythema) Peripheral Pulses: Left Radial: 2+, Right Radial: 2+, Left Doralis Pedis: 2+, Right Dorsalis Pedis: 2+ Labs: CBC, BMP 11/04/17 07:45 11/04/17 16:05 Hospitalist Encounter Assessment: 82yF with PMH Polio, Chronic RLE venous stasis ulcer, HTN, AFib on Eliquis presented to the ED with painless jaundice, decreased appetite and nausea. Choledocholithiasis with cholangitis and biliary tract obstruction - Cont flagyl and zosyn - NPO - hold eliquis for procedure ? IPMN on MRI - will need outpatient follow up and work up of same. Afib/HTN - hold eliquis - rate controlled, cont toprol and nifedipine with a sip of water; hold for low BP or HR DVT PPX - restart Eliquis after ERCP if no further surgical intervention indicated FEN - D51/2NS +20 KCl @ 83 cc/hr - K repleted, now WNL, BMP in am - NPO
[2017-11-05] MEDS ORDERED: PT OWN MED DRAWER 7, Y5N ONE ×3 (01:13→17:17)
[2017-11-05] MEDS: PIPERACILLIN/TAZOB 3.375 GM 3.375 GM in DEXTROSE 5%-WATER - 50 ML IVPB SCH ×3 (02:32→17:20)
[2017-11-05] MEDS: D5-1/2NS+20 MEQ KCL - 20 MEQ/1,000 ML INFUS.BAG IV SCH (02:32)
[2017-11-05 07:54] LABS: BASO % 0.6 % (0-2.0); EOS % 1.4 % (0-4.5); HEMATOCRIT 39.3 % (32.4-45.2); HEMOGLOBIN 12.6 GM/dL (10.7-15.3); LYMPH % 27.8 % (8-40); MCH 26.9 pg (25.7-33.7); MEAN CELL VOLUME 84.1 fl (80-96); MEAN PLT VOLUME 9.9 fl (7.5-11.1); MONO % 9.9 % (3.8-10.2); NEUT % 60.3 % (42.8-82.8); PLATELET COUNT 353 K/MM3 (134-434); RBC 4.68 M/mm3 (3.60-5.2); RDW 16.3 % (11.6-15.6); WHITE BLOOD COUNT 11.2 K/mm3 (4.0-10.0)
[2017-11-05 08:03] LABS: INR 1.12 (0.82-1.09); PROTHROMBIN TIME (PATIENT) 12.6 SEC (9.98-11.88)
[2017-11-05 08:12] LABS: MAGNESIUM 2.3 mg/dL (1.8-2.4); PHOSPHOROUS 2.8 mg/dL (2.5-4.9)
[2017-11-05 08:29] LABS: CHLORIDE 105 mmol/L (98-107); POTASSIUM 3.8 mmol/L (3.5-5.1); SODIUM 139 mmol/L (136-145)
[2017-11-05 08:35] LABS: ALBUMIN 2.6 g/dl (3.4-5.0); ALK PHOS 421 U/L (45-117); ANION GAP 10 (8-16); BILIRUBIN,DIRECT 3.4 mg/dL (0.0-0.2); BILIRUBIN,TOTAL 4.3 mg/dL (0.2-1.0); BLOOD UREA NITROGEN 7 mg/dL (7-18); CALCIUM 8.3 mg/dL (8.5-10.1); CO2 24 mmol/L (21-32); CREATININE 0.4 mg/dL (0.55-1.02); GLUCOSE,RANDOM 82 mg/dL (74-106); SGOT/AST 36 U/L (15-37); SGPT/ALT 64 U/L (12-78); TOT PROT 6.2 g/dl (6.4-8.2)
--- NOTE | 2017-11-05 09:06 | CON.GI ---
Consult Consult Specialty:: Gastroenterology -ERCP Referred by:: Dr Bejarano Reason for Consultation:: ERCP - History of Present Illness Chief Complaint: Diarrhea and painless jaundice History of Present Illness: 82F is admitted for diarrhea and painless jaundice. She is C diff negative. MRCP revealed a stone in the distal CBD as well as gallstones and pancreatic cysts that may be IPMNs. Sydney Lenz denies any abdominal pain at present. Her Eliquis was stopped 48 hours ago. No h/o liver disease. I have discussed the need for ERCP to extract the CBD stone with Caitlyn Lenz and then by phone with her daughter, [place]. I explained that there is a 5 - 15% risk of complications associated with ERCP that include perforation, hemorrhage and pancreatitis leading to multiple organ failure. They have mutually consented. I anticipate doing it at 11AM today. She had colonoscopy with Dr. Reynolds but cannot recall the results. - History Source History Provided By: Patient, Family Member Limitations to Obtaining History: No Limitations - Past Medical History Cardio/Vascular: Yes: AFIB, HTN Gastrointestinal: Yes: Other (Pancreatic cysts) Hepatobiliary: Yes: Cholelithiasis, Choledocholithiasis ...LMP Comment: 82 YEARS OLD ...: No Musculoskeletal: Yes: Other (Polio acquired age 6 months RLE, Has right hip and ankle fusions and multiple ligament surgeries. Has chronic RLE ulcer. ) Rheumatology: Yes: Other - Past Surgical History Past Surgical History: Yes: (C section x 3) Additional Surgical History: Right hip and ankle fusions and mutiple ligament repairs RLE required for polio - Alcohol/Substance Use Hx Alcohol Use: Yes (rare; wine on holidays) - Smoking History Smoking history: Former smoker Have you smoked in the past 12 months: No If you are a former smoker, when did you quit?: 47 YEARS AGO - Social History Usual Living Arrangement: With Child ADL: Family Assistance Occupation: retired secratary Place of : [employer] [employer] History of Recent Travel: No Home Medications - Allergies Allergies/Adverse Reactions: Allergies Allergy/AdvReac Type Severity Reaction Status Date / Time famciclovir [From Famvir] Allergy Verified 08/06/15 09:39 Sulfa (Sulfonamide Allergy Verified 08/06/15 09:39 Antibiotics) - Home Medications Home Medications: Ambulatory Orders Ammonium Lactate Lotion [Lac-Hydrin 12] 1 applic TP ASDIR #1 bottle 05/31/16 Cholecalciferol (Vitamin D3) [Vitamin D3] 2,000 unit PO DAILY capsule 03/19/17 Family Disease History - Family Disease History Family Disease History: Heart Disease: Mother ( heart failure 84), CA: Sister (breast, lung oral cancers), Other: Father ( of sepsis) Review of Systems - Review of Systems Constitutional: reports: Weakness Eyes: reports: No Symptoms HENT: reports: No Symptoms Neck: reports: No Symptoms Cardiovascular: reports: No Symptoms Respiratory: reports: No Symptoms Gastrointestinal: reports: Diarrhea Musculoskeletal: reports: No Symptoms Integumentary: reports: Wound (RLE chrnic ulcer related to polio followed in wound care center) Neurological: reports: No Symptoms Physical Exam-GI Vital Signs: Vital Signs Temperature 98.1 F 11/05/17 06:50 Pulse Rate 74 11/05/17 06:50 Respiratory Rate 20 11/05/17 06:50 Blood Pressure 138/71 11/05/17 06:50 O2 Sat by Pulse Oximetry (%) 95 11/04/17 23:00 CBC,CMP WBC 11.2 K/mm3 (4.0-10.0) H 11/05/17 06:00 RBC 4.68 M/mm3 (3.60-5.2) 11/05/17 06:00 Hgb 12.6 GM/dL (10.7-15.3) 11/05/17 06:00 Hct 39.3 % (32.4-45.2) 11/05/17 06:00 MCV 84.1 fl (80-96) 11/05/17 06:00 MCH 26.9 pg (25.7-33.7) 11/05/17 06:00 MCHC 32.0 g/dl (32.0-36.0) 11/05/17 06:00 RDW 16.3 % (11.6-15.6) H 11/05/17 06:00 Plt Count 353 K/MM3 (134-434) 11/05/17 06:00 MPV 9.9 fl (7.5-11.1) 11/05/17 06:00 Neutrophils % 60.3 % (42.8-82.8) 11/05/17 06:00 Neutrophils % (Manual) 90.0 % (42.8-82.8) H 11/03/17 14:00 Band Neutrophils % 2.0 % (0-10) 11/03/17 14:00 Lymphocytes % 27.8 % (8-40) 11/05/17 06:00 Lymphocytes % (Manual) 6.0 % (8-40) L 11/03/17 14:00 Monocytes % 9.9 % (3.8-10.2) 11/05/17 06:00 Monocytes % (Manual) 2 % (3.8-10.2) L 11/03/17 14:00 Eosinophils % 1.4 % (0-4.5) 11/05/17 06:00 Basophils % 0.6 % (0-2.0) 11/05/17 06:00 Platelet Estimate Adequate 11/03/17 14:00 Sodium 139 mmol/L (136-145) 11/05/17 06:00 Potassium 3.8 mmol/L (3.5-5.1) 11/05/17 06:00 Chloride 105 mmol/L (98-107) 11/05/17 06:00 Carbon Dioxide 24 mmol/L (21-32) 11/05/17 06:00 Anion Gap 10 (8-16) 11/05/17 06:00 BUN 7 mg/dL (7-18) 11/05/17 06:00 Creatinine 0.4 mg/dL (0.55-1.02) L 11/05/17 06:00 Creat Clearance w eGFR > 60 (>60) 11/05/17 06:00 Random Glucose 82 mg/dL (74-106) 11/05/17 06:00 Lactic Acid 1.1 mmol/L (0.0-2.0) 11/03/17 15:10 Calcium 8.3 mg/dL (8.5-10.1) L 11/05/17 06:00 Phosphorus 2.8 mg/dL (2.5-4.9) 11/05/17 06:00 Magnesium 2.3 mg/dL (1.8-2.4) 11/05/17 06:00 Total Bilirubin 4.3 mg/dL (0.2-1.0) H 11/05/17 06:00 Direct Bilirubin 3.4 mg/dL (0.0-0.2) H 11/05/17 06:00 AST 36 U/L (15-37) 11/05/17 06:00 ALT 64 U/L (12-78) 11/05/17 06:00 Alkaline Phosphatase 421 U/L (45-117) H 11/05/17 06:00 Total Protein 6.2 g/dl (6.4-8.2) L 11/05/17 06:00 Albumin 2.6 g/dl (3.4-5.0) L 11/05/17 06:00 Lipase 121 U/L (73-393) 11/03/17 17:00 Current Medications Generic Name Dose Route Start Last Admin Trade Name Freq PRN Reason Stop Dose Admin Metronidazole 500 mg in 100 mls @ 100 mls/hr 11/04/17 03:00 11/05/17 03:29 Flagyl 500mg Premixed Ivpb - IVPB 100 mls/hr Q6H-IV [facility] Administration Potassium Chloride/Dextrose/Sod Cl 20 meq in 1,000 mls @ 83 mls/hr 11/04/17 02 :30 11/05/17 02:32 D5-1/2ns+20 Meq Kcl - IV Not Given ASDIR [facility] Piperacillin Sod/Tazobactam 50 mls @ 100 mls/hr 11/05/17 02:00 11/05/17 02:32 Sod 3.375 gm/ Dextrose IVPB 100 mls/hr Q8H-IV [facility] Administration Protocol Metoprolol Succinate 50 mg 11/04/17 10:00 11/04/17 10:50 Toprol Xl - PO 50 mg DAILY [facility] Administration Nifedipine 90 mg 11/04/17 10:00 11/04/17 10:48 Procardia Xl - PO 90 mg DAILY [facility] Administration Constitutional: Yes: No Distress Eyes: Yes: Sclera Icterus HENT: Yes: Normocephalic Neck: Yes: Trachea Midline Cardiovascular: Yes: Pulse Irregular, S1 (wnl), S2 (wnl) Respiratory: Yes: CTA Bilaterally Gastrointestinal Inspection: Yes: Scars (healed vertical suprpaubic incision) ...Auscultate: Yes: Normoactive Bowel Sounds ...Palpate: Yes: Soft, Other (nontender) ...Rectal Exam: Yes: Deferred (to Dr Bejarano) Labs: CBC, BMP 11/05/17 06:00 INR, PTT INR 1.12 (0.82-1.09) 11/05/17 06:00 Imaging - Results MRI: Report Reviewed (Marlon Cesar Name: SYDNEY KANG DEPARTMENT OF RADIOLOGY Phys: Bert Lora MD : [id number] Age: 82 Sex: F [facility] Acct: [id number] Loc: FM/S [address] Exam Date: 11/03/17 Status: [place] [address] Unit Number: [id number] EXAM#: TYPE/EXAM: RESULT: [id number] MRI/ABDOMEN MRI WITH CONTRAST/MRCP ABDOMEN MRI (without and with contrast) / MRCP Clinical information: obstructive jaundice Multiplanar , multiphase imaging was performed following the intravenous administration of paramagnetic contrast in addition to standard noncontrast pulse sequences. MRCP was obtained utilizing fast suppressed heavily T2-weighted fast spin-echo pulse sequences with cholangiographic and tomographic technique. No prior imaging studies are available at this facility for direct comparison. An approximately 0.8 cm calculus is seen within the common bile duct adjacent to the level of the ampulla. The more proximal common bile duct is dilated with a 1.5 cm maximum luminal diameter. There is mild intrahepatic biliary tract dilatation. Gallbladder overdistention is also noted. Several gallbladder calculi are seen. There is no definite gallbladder wall edema or pericholecystic fluid accumulation. The main pancreatic duct diameter appears borderline measuring 0.3 cm. Several small pancreatic body cysts are noted the most prominent measuring 0.6 x 0.3 cm. No obvious associated soft tissue nodularity is identified allowing for respiratory motion artifact. There is probable communication with the main pancreatic duct. The liver, spleen, kidneys demonstrate no obvious pathology allowing for motion artifact. Incidental note is made of several small bilateral renal cortical cysts. Mild bilateral adrenal gland thickening is seen which is somewhat difficult to characterize on this exam due to motion artifact. This finding is probably on the basis of subcentimeter adenomas versus hyperplasia. No free intraperitoneal fluid is seen. There is no obvious lymphadenopathy. No aortic aneurysm is noted. Moderate to large hiatal hernia. The partially imaged urinary bladder appears to demonstrate a somewhat trabeculated appearance. IMPRESSION: Choledocholithiasis is identified as discussed above with resultant biliary tract dilatation. Cholelithiasis. Several small pancreatic body cysts are seen the most prominent measuring 0.6 x 0.3 cm suggestive of branch duct intraductal papillary mucinous neoplasm/ IPMN. Moderate to large hiatal hernia. Reported By: Jaylon Bella MD 11/03/172204 Technologist: Parveen Fermin Transcribed Date/Time : 11/03/172204 Program Control Analyst: Jaylon Bella Printed Date/Time: By: Signed by: Jaylon Bella Signed on: 03-Nov-2017 22:07) Problem List - Problems (1) Choledocholithiasis Assessment/Plan: I have obtained an informed consent for ERCP which will be done later this morning. Will not give Indocin given risk of causing NSAID renal injury. Results will dictate further measures. Cholecystectomy should be strongly considered to prevent recurrent CBD stone obstructions, pancreatitis and ascending cholangitis. Code(s): K80.50 - CALCULUS OF BILE DUCT W/O CHOLANGITIS OR CHOLECYST W/O OBST (2) Jaundice Code(s): R17 - UNSPECIFIED JAUNDICE (3) Pancreatic cyst Assessment/Plan: Will defer further evaluation to Dr. Bejarano. Code(s): K86.2 - CYST OF PANCREAS
[2017-11-05] MEDS ORDERED: INDOMETHACIN 50 MG RECTAL SUPPOSITORY PR ONE (09:44)
[2017-11-05] MEDS: NIFEdipine E.R. 90 MG TABLET (FP) PO SCH (09:55)
[2017-11-05] MEDS ORDERED: SUCCINYLCHOLINE CHLORIDE 200 MG/10 ML VIAL ONE (13:35)
[2017-11-05] MEDS ORDERED: LIDOCAINE HCL/PF 2% SDV 5ML VIAL ONE (13:36)
[2017-11-05] MEDS ORDERED: IOHEXOL 300 MG/ML INFUS..BTL IV ONE (14:20)
--- NOTE | 2017-11-05 14:24 | PN ---
Progress Note (short form) - Note Progress Note: General surgery: Came to see the patient as a consult for Dr. Chavarria for cholelithiasis. She is s /p ERCP with CBD stone removal and is recovering from her procedure. I discussed the case with Dr. Foster, CBD stones were removed and a spincterotomy was completed. The plan was d/w Dr. Chavarria and will proceed with a lap manuel on Friday if the patient is aggreable. Will trend her LFTS to follow improvement.
--- NOTE | 2017-11-05 14:31 | PN ---
Progress Note (short form) - Note Progress Note: GI Procedure NOte: Please see scanned ERCP report. A large and a small stone were removed along with copious thick sludge and stone debris. Discussed with daughter and RENETTA Graham. Problem List - Problems (1) Choledocholithiasis Code(s): K80.50 - CALCULUS OF BILE DUCT W/O CHOLANGITIS OR CHOLECYST W/O OBST (2) Jaundice Code(s): R17 - UNSPECIFIED JAUNDICE (3) Pancreatic cyst Code(s): K86.2 - CYST OF PANCREAS
[2017-11-05] MEDS ORDERED: LACTATED RINGERS SOLUTION 1,000 ML/1,000 ML INFUS.BAG IV SCH ×3 (14:45→20:00)
--- NOTE | 2017-11-05 15:40 | PN ---
Physical Exam: SUBJECTIVE: Patient seen and examined. s/p ERCP tolerated procedure. Feeling a little dizzy/lightheaded OBJECTIVE: Vital Signs Period Temp Pulse Resp BP Sys/Sequeira Pulse Ox Last 24 Hr 97.6 F-98.6 F 67-92 12-20 113-167/71-99 95-100 PE Neuro: alert, awake, cn 2-12intact Pulm: CTAB CV: s1 s2 rrrr Abd: soft non distended Ext: warm, no le edema Laboratory Results - last 24 hr 11/04/17 11/05/17 11/05/17 16:05 06:00 06:00 WBC 11.2 H RBC 4.68 Hgb 12.6 Hct 39.3 MCV 84.1 MCH 26.9 MCHC 32.0 RDW 16.3 H Plt Count 353 MPV 9.9 Neutrophils % 60.3 Lymphocytes % 27.8 Monocytes % 9.9 Eosinophils % 1.4 Basophils % 0.6 PT with INR INR Sodium 134 L 139 Potassium 4.0 D 3.8 Chloride 104 105 Carbon Dioxide 24 24 Anion Gap 6 L 10 BUN 8 7 Creatinine 0.3 L 0.4 L Creat Clearance w eGFR > 60 Random Glucose 82 82 Calcium 8.3 L 8.3 L Phosphorus Magnesium Total Bilirubin 4.3 H Direct Bilirubin 3.4 H AST 36 ALT 64 Alkaline Phosphatase 421 H Total Protein 6.2 L Albumin 2.6 L 11/05/17 11/05/17 06:00 06:00 WBC RBC Hgb Hct MCV MCH MCHC RDW Plt Count MPV Neutrophils % Lymphocytes % Monocytes % Eosinophils % Basophils % PT with INR 12.60 H INR 1.12 Sodium Potassium Chloride Carbon Dioxide Anion Gap BUN Creatinine Creat Clearance w eGFR Random Glucose Calcium Phosphorus 2.8 Magnesium 2.3 Total Bilirubin Direct Bilirubin AST ALT Alkaline Phosphatase Total Protein Albumin Active Medications Generic Name Dose Route Start Last Admin Trade Name Freq PRN Reason Stop Dose Admin Metronidazole 500 mg in 100 mls @ 100 mls/hr 11/04/17 03:00 11/05/17 09:54 Flagyl 500mg Premixed Ivpb - IVPB 100 mls/hr Q6H-IV [facility] Administration Piperacillin Sod/Tazobactam 50 mls @ 100 mls/hr 11/05/17 02:00 11/05/17 09:54 Sod 3.375 gm/ Dextrose IVPB 100 mls/hr Q8H-IV [facility] Administration Protocol Lactated Ringer's 1,000 ml in 1,000 mls @ 200 mls/hr 11/05/17 14:45 Lactated Ringers Solution IV 11/05/17 20:00 ASDIR [facility] Lactated Ringer's 1,000 ml in 1,000 mls @ 175 mls/hr 11/05/17 20:00 Lactated Ringers Solution IV 11/06/17 02:00 ASDIR [facility] Lactated Ringer's 1,000 ml in 1,000 mls @ 150 mls/hr 11/06/17 02:00 Lactated Ringers Solution IV 11/06/17 08:00 ASDIR [facility] Lactated Ringer's 1,000 ml in 1,000 mls @ 125 mls/hr 11/06/17 08:00 Lactated Ringers Solution IV ASDIR [facility] Metoprolol Succinate 50 mg 11/04/17 10:00 11/05/17 09:54 Toprol Xl - PO 50 mg DAILY [facility] Administration Nifedipine 90 mg 11/04/17 10:00 11/05/17 09:55 Procardia Xl - PO 90 mg DAILY [facility] Administration Assessment: 82 year old female wiht PMH Polio, Chronic RLE venous stasis ulcer, HTN, AFib on Eliquis admitted to [place] with painless jaundice, decreased appetite and nausea transferred to [facility] for ERCP and cholecystectomy 11/04. Plan: 1. Choledocholithiasis with cholangitis and biliary tract obstruction - s/p ERCP and spincterotomy; stone and sludge extracted - Continue LR per GI - Cont Flagyl and Zosyn - Surgery eval for cholecystectomy tentatively for Friday - Hold eliquis for procedure - Clears diet 2. ? IPMN on MRI - Ca19-9 pending - Will need outpatient follow up and work up of same 3. Afib/HTN - Hold eliquis for surgery Friday - Cont toprol and nifedipine 4. DVT PPX - SCDs Visit type - Emergency Visit Emergency Visit: Yes ED Registration Date: 11/03/17 Care time: The patient presented to the Emergency Department on the above date and was hospitalized for further evaluation of their emergent condition. - New Patient This patient is new to me today: Yes Date on this admission: 11/05/17 - Critical Care Critical Care patient: No
[2017-11-06] MEDS: PIPERACILLIN/TAZOB 3.375 GM 3.375 GM in DEXTROSE 5%-WATER - 50 ML IVPB SCH ×2 (01:49→10:44)
[2017-11-06] MEDS ORDERED: LACTATED RINGERS SOLUTION 1,000 ML/1,000 ML INFUS.BAG IV SCH ×2 (02:00→08:00)
[2017-11-06 07:28] LABS: BASO % 0.8 % (0-2.0); EOS % 1.4 % (0-4.5); HEMATOCRIT 40.7 % (32.4-45.2); HEMOGLOBIN 13.1 GM/dL (10.7-15.3); LYMPH % 26.3 % (8-40); MCH 26.8 pg (25.7-33.7); MCHC 32.1 g/dl (32.0-36.0); MEAN CELL VOLUME 83.4 fl (80-96); MEAN PLT VOLUME 9.6 fl (7.5-11.1); MONO % 11.7 % (3.8-10.2); NEUT % 59.8 % (42.8-82.8); PLATELET COUNT 388 K/MM3 (134-434); RBC 4.88 M/mm3 (3.60-5.2); RDW 15.9 % (11.6-15.6); WHITE BLOOD COUNT 11.6 K/mm3 (4.0-10.0)
[2017-11-06 08:09] LABS: CHLORIDE 105 mmol/L (98-107); POTASSIUM 3.3 mmol/L (3.5-5.1); SODIUM 140 mmol/L (136-145)
[2017-11-06 08:25] LABS: ALBUMIN 2.6 g/dl (3.4-5.0); ALK PHOS 454 U/L (45-117); ANION GAP 9 (8-16); BILIRUBIN,DIRECT 2.7 mg/dL (0.0-0.2); BILIRUBIN,TOTAL 3.9 mg/dL (0.2-1.0); BLOOD UREA NITROGEN 6 mg/dL (7-18); CALCIUM 8.3 mg/dL (8.5-10.1); CO2 26 mmol/L (21-32); CREATININE 0.4 mg/dL (0.55-1.02); GLUCOSE,RANDOM 93 mg/dL (74-106); SGOT/AST 36 U/L (15-37); SGPT/ALT 52 U/L (12-78); TOT PROT 6.2 g/dl (6.4-8.2)
--- NOTE | 2017-11-06 09:47 | PN ---
Progress Note, Physician History of Present Illness: Asymptomatic, comfortable. No events overnight - Current Medication List Current Medications: Active Medications Enoxaparin Sodium (Lovenox -) 60 mg SQ BID [facility] Metronidazole (Flagyl 500mg Premixed Ivpb -) 500 mg in 100 mls @ 100 mls/hr IVPB Q6H-IV [facility] Last Admin: 11/06/17 02:05 Dose: 100 mls/hr Piperacillin Sod/Tazobactam (Sod 3.375 gm/ Dextrose) 50 mls @ 100 mls/hr IVPB Q8H-IV [facility] PRN Reason: Protocol Last Admin: 11/06/17 01:49 Dose: 100 mls/hr Lactated Ringer's (Lactated Ringers Solution) 1,000 ml in 1,000 mls @ 125 mls/ hr IV ASDIR [facility] Metoprolol Succinate (Toprol Xl -) 50 mg PO DAILY [facility] Last Admin: 11/05/17 09:54 Dose: 50 mg Nifedipine (Procardia Xl -) 90 mg PO DAILY [facility] Last Admin: 11/05/17 09:55 Dose: 90 mg - Objective Vital Signs: Vital Signs Temperature 97.7 F 11/06/17 02:00 Pulse Rate 80 11/06/17 02:00 Respiratory Rate 20 11/06/17 02:00 Blood Pressure 143/91 11/06/17 02:00 O2 Sat by Pulse Oximetry (%) 95 11/05/17 21:00 Constitutional: Yes: No Distress, Calm Eyes: No: Sclera Icterus Gastrointestinal: Yes: Normal Bowel Sounds, Soft. No: Distention, Tenderness, Vomiting Neurological: Yes: Alert, Oriented Labs: CBC, BMP 11/06/17 06:00 11/06/17 06:00 INR, PTT INR 1.12 (0.82-1.09) 11/05/17 06:00 Laboratory Results - last 24 hr 11/06/17 11/06/17 11/06/17 06:00 06:00 06:00 WBC 11.6 H RBC 4.88 Hgb 13.1 Hct 40.7 MCV 83.4 MCH 26.8 MCHC 32.1 RDW 15.9 H Plt Count 388 MPV 9.6 Neutrophils % 59.8 Lymphocytes % 26.3 Monocytes % 11.7 H Eosinophils % 1.4 Basophils % 0.8 Sodium 140 Potassium 3.3 L Chloride 105 Carbon Dioxide 26 Anion Gap 9 BUN 6 L Creatinine 0.4 L Creat Clearance w eGFR > 60 Random Glucose 93 Calcium 8.3 L Total Bilirubin 3.9 H Direct Bilirubin 2.7 H AST 36 ALT 52 Alkaline Phosphatase 454 H Total Protein 6.2 L Albumin 2.6 L Total Amylase 248 H Lipase 1084 H Problem List - Problems (1) Choledocholithiasis Code(s): K80.50 - CALCULUS OF BILE DUCT W/O CHOLANGITIS OR CHOLECYST W/O OBST (2) Pancreatic cyst Code(s): K86.2 - CYST OF PANCREAS (3) Anticoagulant long-term use Code(s): Z79.01 - [facility] (CURRENT) USE OF ANTICOAGULANTS (4) History of anticoagulant use Code(s): Z92.29 - PERSONAL HISTORY OF OTHER DRUG THERAPY (5) Atrial fibrillation Code(s): I48.91 - UNSPECIFIED ATRIAL FIBRILLATION Qualifiers: Atrial fibrillation type: unspecified Qualified Code(s): I48.91 - Unspecified atrial fibrillation (6) Infected stasis ulcer of right lower extremity Code(s): I83.219 - VARICOS VN OF R LOW EXTREM W ULC OF UNSP SITE AND INFLAM Assessment/Plan Asymptomatic Pancreatitis IVF as tolerated clear liquid diet if remains asymptomatic Close monitoring for worsening clinical condition CMP with direct bili, CBC, PT/INR, Lipase daily Antiemetic/Pain management PRN Work up of the pancreatic cyst noted on MRCP after the acute issues have been addressed
[2017-11-06] MEDS: NIFEdipine E.R. 90 MG TABLET (FP) PO SCH (09:53)
--- NOTE | 2017-11-06 09:54 | CONSULT ---
- Consultation REQUESTING PROVIDER: Celestine [employer]ID[employer] TEACHER CONSULT REQUEST: We have been asked to surgically evaluate this patient for ( specify). PCP:Lilo Sprague HISTORY OF PRESENT ILLNESS: CTSP who is an 82 y/o female admitted w/ jaundice and ? abdominal pain found to have cholelithiasis and choledocholithiasis; she is day #1 s/p ERCP?sohnicterotomy and CBD stone removal and CBD sludge drainage ; she states she feels well today and tolerated a diet this AM; she has no pain. PMHx: h/o polio/osteoporosis PSHx: C-S Home Medications Medication Instructions Recorded RX: Ammonium Lactate Lotion 1 applic TP ASDIR #1 bottle 05/31/16 [Lac-Hydrin 12] Cholecalciferol (Vitamin D3) 2,000 unit PO DAILY capsule 03/19/17 [Vitamin D3] Allergies Allergy/AdvReac Type Severity Reaction Status Date / Time famciclovir [From Famvir] Allergy Verified 08/06/15 09:39 Sulfa (Sulfonamide Allergy Verified 08/06/15 09:39 Antibiotics) . PHYSICAL EXAM: GENERAL: Awake, alert, and fully oriented, in no acute distress. HEAD: Normal with no signs of trauma. EYES: sclera slightly anicteric, conjunctiva clear. NECK: Normal ROM, supple without lymphadenopathy, JVD, or masses. ABDOMEN: Soft, nontender, not distended, normoactive bowel sounds, no guarding, no rebound, no masses. No organomegaly. Healed infraumbilical scar; no hernias NEUROLOGICAL: Normal speech, gait not observed. PSYCH: Cooperative. Good eye contact. Appropriate mood and affect. SKIN: Warm, dry, normal turgor, no rashes or lesions noted. Vital Signs Temperature 97.7 F 11/06/17 02:00 Pulse Rate 80 11/06/17 02:00 Respiratory Rate 20 11/06/17 02:00 Blood Pressure 143/91 11/06/17 02:00 O2 Sat by Pulse Oximetry (%) 95 11/05/17 21:00 Lab Results WBC 11.6 K/mm3 (4.0-10.0) H 11/06/17 06:00 RBC 4.88 M/mm3 (3.60-5.2) 11/06/17 06:00 Hgb 13.1 GM/dL (10.7-15.3) 11/06/17 06:00 Hct 40.7 % (32.4-45.2) 11/06/17 06:00 MCV 83.4 fl (80-96) 11/06/17 06:00 MCHC 32.1 g/dl (32.0-36.0) 11/06/17 06:00 RDW 15.9 % (11.6-15.6) H 11/06/17 06:00 Plt Count 388 K/MM3 (134-434) 11/06/17 06:00 Sodium 140 mmol/L (136-145) 11/06/17 06:00 Potassium 3.3 mmol/L (3.5-5.1) L 11/06/17 06:00 Chloride 105 mmol/L (98-107) 11/06/17 06:00 Carbon Dioxide 26 mmol/L (21-32) 11/06/17 06:00 Anion Gap 9 (8-16) 11/06/17 06:00 BUN 6 mg/dL (7-18) L 11/06/17 06:00 Creatinine 0.4 mg/dL (0.55-1.02) L 11/06/17 06:00 Random Glucose 93 mg/dL (74-106) 11/06/17 06:00 Calcium 8.3 mg/dL (8.5-10.1) L 11/06/17 06:00 INR 1.12 (0.82-1.09) 11/05/17 06:00 W/U to date reviewed IMP: cholelithiasis/choledocholithiasis/s/p ERCP and related procedures PLAN: Lap manuel possible open 11/07/17; she has no clinical evidence of post procedure pancreatitis; would continue to trend LFT's and amylase and lipase and final decision will be made in the AM of 11/07/17 pending lab results and clinical exam; r/b/t/a's d/w the patient who wishes to proceed. Kunal Chavarria MD FACS Visit type - Case Type Case Type: ED Admission - Emergency Emergency Visit: Yes ED Registration Date: 11/03/17 Care time: The patient presented to the Emergency Department on the above date and was hospitalized for further evaluation of their emergent condition. - New patient This patient is new to me today: Yes Date on this admission: 11/06/17 - Critical Care Critical Care patient: No
--- NOTE | 2017-11-06 10:06 | PN ---
Progress Note, Physician History of Present Illness: Awake, alert. No complaints Denies abdominal pain No N/V/D S/P ERCP / stone extraction Afebrile WBC improved - Current Medication List Current Medications: Active Medications Enoxaparin Sodium (Lovenox -) 60 mg SQ BID [facility] Metronidazole (Flagyl 500mg Premixed Ivpb -) 500 mg in 100 mls @ 100 mls/hr IVPB Q6H-IV [facility] Last Admin: 11/06/17 09:53 Dose: 100 mls/hr Piperacillin Sod/Tazobactam (Sod 3.375 gm/ Dextrose) 50 mls @ 100 mls/hr IVPB Q8H-IV [facility] PRN Reason: Protocol Last Admin: 11/06/17 01:49 Dose: 100 mls/hr Lactated Ringer's (Lactated Ringers Solution) 1,000 ml in 1,000 mls @ 125 mls/ hr IV ASDIR [facility] Metoprolol Succinate (Toprol Xl -) 50 mg PO DAILY [facility] Last Admin: 11/06/17 09:53 Dose: 50 mg Nifedipine (Procardia Xl -) 90 mg PO DAILY [facility] Last Admin: 11/06/17 09:53 Dose: 90 mg - Objective Vital Signs: Vital Signs Temperature 97.7 F 11/06/17 02:00 Pulse Rate 80 11/06/17 02:00 Respiratory Rate 20 11/06/17 02:00 Blood Pressure 143/91 11/06/17 02:00 O2 Sat by Pulse Oximetry (%) 95 11/05/17 21:00 Constitutional: Yes: No Distress Eyes: Yes: Conjunctiva Clear Cardiovascular: Yes: Regular Rate and Rhythm, S1, S2 Respiratory: Yes: CTA Bilaterally Gastrointestinal: Yes: Normal Bowel Sounds, Soft. No: Tenderness Edema: No Labs: CBC, BMP 11/06/17 06:00 11/06/17 06:00 INR, PTT INR 1.12 (0.82-1.09) 11/05/17 06:00 Assessment/Plan S/P ERCP/ stone extraction Leukocytosis- improved ? cellulitis R LE + urine c/s For cholecystectomy Will substitute ceftriaxone for empiric coverage of biliary tract/ urinary tract/ skin pathogens
[2017-11-06] MEDS: CEFTRIAXONE IN IS-OSM DEXTROSE 2 GM/50 ML BAG IVPB SCH (10:56)
[2017-11-06] MEDS: ENOXAPARIN NA (PORCINE) 60 MG/0.6 ML DISP.SYRIN SQ SCH ×2 (10:58→21:25)
--- NOTE | 2017-11-06 15:42 | PN ---
Physical Exam: SUBJECTIVE: Patient seen and examined. Appears improved from yesterday, has no acute abdominal complaints. OBJECTIVE: Vital Signs Period Temp Pulse Resp BP Sys/Sequeira Pulse Ox Last 24 Hr 97.7 F-98.3 F 74-84 18-20 129-167/76-98 95-99 PE Neuro: alert, awake, cn 2-12intact Pulm: basilar crackles, CV: s1 s2 rrr Abd: soft non distended nt + bs Ext: warm, no le edema Laboratory Results - last 24 hr 11/06/17 11/06/17 11/06/17 06:00 06:00 06:00 WBC 11.6 H RBC 4.88 Hgb 13.1 Hct 40.7 MCV 83.4 MCH 26.8 MCHC 32.1 RDW 15.9 H Plt Count 388 MPV 9.6 Neutrophils % 59.8 Lymphocytes % 26.3 Monocytes % 11.7 H Eosinophils % 1.4 Basophils % 0.8 Sodium 140 Potassium 3.3 L Chloride 105 Carbon Dioxide 26 Anion Gap 9 BUN 6 L Creatinine 0.4 L Creat Clearance w eGFR > 60 Random Glucose 93 Calcium 8.3 L Total Bilirubin 3.9 H Direct Bilirubin 2.7 H AST 36 ALT 52 Alkaline Phosphatase 454 H C-Reactive Protein 3.8 H Total Protein 6.2 L Albumin 2.6 L Total Amylase 248 H Lipase 1084 H Active Medications Generic Name Dose Route Start Last Admin Trade Name Freq PRN Reason Stop Dose Admin Enoxaparin Sodium 60 mg 11/06/17 10:00 11/06/17 10:58 Lovenox - SQ 60 mg BID [facility] Administration Metronidazole 500 mg in 100 mls @ 100 mls/hr 11/04/17 03:00 11/06/17 09:53 Flagyl 500mg Premixed Ivpb - IVPB 100 mls/hr Q6H-IV [facility] Administration Lactated Ringer's 1,000 ml in 1,000 mls @ 125 mls/hr 11/06/17 08:00 11/06/17 10:57 Lactated Ringers Solution IV 125 mls/hr ASDIR [facility] Administration CEFTRIAXONE IN IS-OSM DEXTROSE 2 gm in 50 mls @ 100 mls/hr 11/06/17 10:15 10:56 Ceftriaxone 2 Gm-D5w Bag IVPB 100 mls/hr DAILY [facility] Administration Metoprolol Succinate 50 mg 11/04/17 10:00 11/06/17 09:53 Toprol Xl - PO 50 mg DAILY [facility] Administration Nifedipine 90 mg 11/04/17 10:00 11/06/17 09:53 Procardia Xl - PO 90 mg DAILY [facility] Administration Microbiology 11/04/17 07:00 MRSA Screen - Final Nares - Left Nares NO MRSA ISOLATED 11/04/17 07:00 MRSA Screen - Final Nares - Mrsa Screen - Right NO MRSA ISOLATED 11/03/17 13:36 Urine Culture - Preliminary Urine - Urine - Catheterized Escherichia Coli Group D Strep Or Entero Coccus 11/03/17 16:41 Blood Culture - Preliminary Blood - Peripheral Venous NO GROWTH OBTAINED AFTER 48 HOURS, INCUBATION TO CONTINUE FOR 3 DAYS. 11/03/17 16:41 Blood Culture - Preliminary Blood - Peripheral Venous NO GROWTH OBTAINED AFTER 48 HOURS, INCUBATION TO CONTINUE FOR 3 DAYS. Assessment: 82 year old female with PMH Polio s/p R hip fusion, R ankle fusion, Chronic RLE venous stasis ulcer, HTN, AFib on Eliquis admitted to [place] with painless jaundice, decreased appetite and nausea transferred to [facility] for ERCP and cholecystectomy 11/04. Plan: 1. Choledocholithiasis with cholangitis and biliary tract obstruction - s/p ERCP and spincterotomy; stone and sludge extracted 11/05 - For tentative open cholecystectomy tomorrow - Continue LR - Check LFTs, amlayse, lipase in AM - Stop zosyn - Start ceftriaxone, continue flagyl - Hold lovenox after tonight dose - NPO after midnight 2. ? IPMN on MRI - Ca19-9 pending - Will need outpatient follow up and work up of same 3. Afib/HTN - Lovenox 60mg BID for afib, hold after tonight dose - Hold eliquis for surgery Friday - Cont toprol and nifedipine 4. DVT PPX - Lovenox 5. Polio - Ambulate in home with walker 6. E coli UTI - Ceftriaxone as above (day 1) Visit type - Emergency Visit Emergency Visit: Yes ED Registration Date: 11/03/17 Care time: The patient presented to the Emergency Department on the above date and was hospitalized for further evaluation of their emergent condition. - New Patient This patient is new to me today: No - Critical Care Critical Care patient: No
--- NOTE | 2017-11-06 17:38 | PN ---
Progress Note (short form) - Note Progress Note: Please note. I will be away from 11/07/17 to 11/17/17. Dr. Shankar Cristina will be covering for me in my absence. Problem List - Problems (1) Choledocholithiasis Code(s): K80.50 - CALCULUS OF BILE DUCT W/O CHOLANGITIS OR CHOLECYST W/O OBST (2) Pancreatic cyst Code(s): K86.2 - CYST OF PANCREAS (3) Anticoagulant long-term use Code(s): Z79.01 - [facility] (CURRENT) USE OF ANTICOAGULANTS (4) History of anticoagulant use Code(s): Z92.29 - PERSONAL HISTORY OF OTHER DRUG THERAPY (5) Atrial fibrillation Code(s): I48.91 - UNSPECIFIED ATRIAL FIBRILLATION Qualifiers: Atrial fibrillation type: unspecified Qualified Code(s): I48.91 - Unspecified atrial fibrillation (6) Infected stasis ulcer of right lower extremity Code(s): I83.219 - VARICOS VN OF R LOW EXTREM W ULC OF UNSP SITE AND INFLAM
[2017-11-06] MEDS ORDERED: ELECTROLYTE-148 SOLN 1,000 ML IV SCH (18:15)
--- NOTE | 2017-11-06 18:24 | PN ---
Progress Note (short form) - Note Progress Note: POD #1 - s/p ERCP under general anesthesia. VSS. Pt. doing well, resting comfortably in bed. No complaints. No apparent anesthetic complications noted. Pt. for laparoscopic cholecystectomy tomorrow. Continue current care.
[2017-11-06] MEDS ORDERED: METOPROLOL TARTRATE 25 MG TABLET (FP) PO STA (21:31)
--- NOTE | 2017-11-06 21:32 | HOSP ---
Subjective - Review of Symptoms Events since last encounter: Received call from RN. BP elevated 160/80. Has been elevated three successive readings. Give metoprolol 25mg x 1. Will defer to day team to further assess. Surgery planned for tomorrow. Physical Examination Vital Signs: Vital Signs Temperature 98 F 11/06/17 21:00 Pulse Rate 70 11/06/17 21:00 Respiratory Rate 20 11/06/17 21:00 Blood Pressure 160/80 11/06/17 21:00 O2 Sat by Pulse Oximetry (%) 96 11/06/17 09:00 Labs: CBC, BMP 11/06/17 06:00 11/06/17 06:00
[2017-11-07 08:12] LABS: LIPASE 79 U/L (73-393)
[2017-11-07 08:17] LABS: ALBUMIN 2.6 g/dl (3.4-5.0); ALK PHOS 443 U/L (45-117); ANION GAP 11 (8-16); BILIRUBIN,TOTAL 2.8 mg/dL (0.2-1.0); BLOOD UREA NITROGEN 5 mg/dL (7-18); CALCIUM 8.8 mg/dL (8.5-10.1); CHLORIDE 100 mmol/L (98-107); CO2 28 mmol/L (21-32); CREATININE 0.3 mg/dL (0.55-1.02); GLUCOSE,RANDOM 100 mg/dL (74-106); POTASSIUM 3.2 mmol/L (3.5-5.1); SGOT/AST 41 U/L (15-37); SGPT/ALT 53 U/L (12-78); SODIUM 139 mmol/L (136-145); TOT PROT 6.3 g/dl (6.4-8.2)
[2017-11-07 08:23] LABS: BASO % 0.7 % (0-2.0); EOS % 0.7 % (0-4.5); HEMATOCRIT 43.6 % (32.4-45.2); HEMOGLOBIN 13.9 GM/dL (10.7-15.3); LYMPH % 20.6 % (8-40); MCHC 31.9 g/dl (32.0-36.0); MEAN CELL VOLUME 84.7 fl (80-96); MEAN PLT VOLUME 9.9 fl (7.5-11.1); MONO % 10.6 % (3.8-10.2); NEUT % 67.4 % (42.8-82.8); PLATELET COUNT 389 K/MM3 (134-434); RBC 5.15 M/mm3 (3.60-5.2); RDW 16.1 % (11.6-15.6)
[2017-11-07] MEDS: NIFEdipine E.R. 90 MG TABLET (FP) PO SCH (09:01)
[2017-11-07] MEDS: CEFTRIAXONE IN IS-OSM DEXTROSE 2 GM/50 ML BAG IVPB SCH (09:01)
[2017-11-07] MEDS ORDERED: ROCURONIUM BROMIDE 50 MG/5 ML VIAL ONE (10:46)
[2017-11-07] MEDS ORDERED: PROPOFOL 20 ML ONE (10:46)
[2017-11-07] MEDS ORDERED: MIDAZOLAM HCL 2 MG/2 ML SINGLE DOSE VIAL ONE (10:46)
[2017-11-07] MEDS ORDERED: POTASSIUM CHLORIDE ORAL LIQUID 20 MEQ/15 ML PO ONE ×2 (11:56→13:30)
--- NOTE | 2017-11-07 11:58 | PN ---
Physical Exam: SUBJECTIVE: Patient seen and examined before surgery. She feels well, offers on complaints. OBJECTIVE: Vital Signs Period Temp Pulse Resp BP Sys/Sequeira Pulse Ox Last 24 Hr 98 F-98.5 F 69-81 17-20 150-160/80-97 96 PE Neuro: alert, awake, cn 2-12intact Pulm: clear anteriorly CV: s1 s2 rrr Abd: soft non distended nt + bs Ext: warm, no le edema Laboratory Results - last 24 hr 11/06/17 11/07/17 11/07/17 06:00 06:12 06:12 WBC 14.0 H RBC 5.15 Hgb 13.9 Hct 43.6 MCV 84.7 MCH 27.0 MCHC 31.9 L RDW 16.1 H Plt Count 389 MPV 9.9 Neutrophils % 67.4 Lymphocytes % 20.6 D Monocytes % 10.6 H Eosinophils % 0.7 Basophils % 0.7 Sodium 139 Potassium 3.2 L Chloride 100 Carbon Dioxide 28 Anion Gap 11 BUN 5 L Creatinine 0.3 L Creat Clearance w eGFR > 60 Random Glucose 100 Calcium 8.8 Total Bilirubin 2.8 H D Direct Bilirubin 2.0 H AST 41 H ALT 53 Alkaline Phosphatase 443 H C-Reactive Protein 3.8 H Total Protein 6.3 L Albumin 2.6 L Total Amylase Lipase 79 Blood Type Antibody Screen 11/07/17 11/07/17 06:12 10:35 WBC RBC Hgb Hct MCV MCH MCHC RDW Plt Count MPV Neutrophils % Lymphocytes % Monocytes % Eosinophils % Basophils % Sodium Potassium Chloride Carbon Dioxide Anion Gap BUN Creatinine Creat Clearance w eGFR Random Glucose Calcium Total Bilirubin Direct Bilirubin AST ALT Alkaline Phosphatase C-Reactive Protein Total Protein Albumin Total Amylase 35 Lipase Blood Type O POSITIVE Antibody Screen Negative Active Medications Generic Name Dose Route Start Last Admin Trade Name Freq PRN Reason Stop Dose Admin Enoxaparin Sodium 60 mg 11/06/17 10:00 11/06/17 21:25 Lovenox - SQ 60 mg BID [facility] Administration Metronidazole 500 mg in 100 mls @ 100 mls/hr 11/04/17 03:00 11/07/17 09:01 Flagyl 500mg Premixed Ivpb - IVPB 100 mls/hr Q6H-IV [facility] Administration CEFTRIAXONE IN IS-OSM DEXTROSE 2 gm in 50 mls @ 100 mls/hr 11/06/17 10:15 09:01 Ceftriaxone 2 Gm-D5w Bag IVPB 100 mls/hr DAILY [facility] Administration Parenteral Electrolytes 1,000 mls @ 83 mls/hr 11/06/17 18:15 11/06/17 21:24 Plasma-Lyte 148 - IV 83 mls/hr ASDIR [facility] Administration Metoprolol Succinate 50 mg 11/04/17 10:00 11/07/17 09:01 Toprol Xl - PO 50 mg DAILY [facility] Administration Nifedipine 90 mg 11/04/17 10:00 11/07/17 09:01 Procardia Xl - PO 90 mg DAILY [facility] Administration Assessment: 82 year old female with PMH Polio s/p R hip fusion, R ankle fusion, Chronic RLE venous stasis ulcer, HTN, AFib on Eliquis admitted to [place] with painless jaundice, decreased appetite and nausea transferred to [facility] for ERCP and cholecystectomy 11/04. Plan: 1. Choledocholithiasis with cholangitis and biliary tract obstruction - Cholecystectomy today - s/p ERCP and spincterotomy; stone and sludge extracted 11/05 - Continue Ceftriaxone/ flagyl - Full dose Lovenox on hold due to surgery - Resume Eliquis after surgery, increase to 5mg BID, as only meets one decreased dosing requirement 2. ? IPMN on MRI - Ca19-9 pending - Will need outpatient follow up and work up of same 3. Afib - Lovenox 60mg BID on hold for surgery - Resume eliquis tomorrow 5mg bid 4. HTN - BP elevated, likely due to IVF - Continue Toprol xl 50mg daily, uptitrate as needed - Nifedipine xl 90mg daily 5. E coli UTI - Ceftriaxone as above (day 2) 6. Polio - Ambulate in home with walker Visit type - Emergency Visit Emergency Visit: Yes ED Registration Date: 11/03/17 Care time: The patient presented to the Emergency Department on the above date and was hospitalized for further evaluation of their emergent condition. - New Patient This patient is new to me today: No - Critical Care Critical Care patient: No
[2017-11-07] MEDS ORDERED: DEXAMETHASONE SOD PHOSPHATE 4 MG/1 ML VIAL ONE (12:06)
[2017-11-07] MEDS ORDERED: NEOSTIGMINE METHYLSULFATE 0.5 MG/ML - 10 ML MDV ONE (12:06)
[2017-11-07] MEDS ORDERED: GLYCOPYRROLATE 0.2 MG/1 ML VIAL ONE (12:06)
[2017-11-07] MEDS ORDERED: BUPIVACAINE HCL/PF 0.5% (5MG/ML) 10 ML VIAL IJ ONE ×2 (12:19)
[2017-11-07] MEDS ORDERED: ACETAMINOPHEN 1000 MG/100 ML VIAL (NON FORMULARY) IVPB PRN ×2 (12:39→12:57)
[2017-11-07] MEDS ORDERED: ONDANSETRON 4 MG/2 ML VIAL IVPUSH PRN (12:39)
[2017-11-07] MEDS ORDERED: oxyCODONE HCL 5 MG TABLET PO PRN (12:44)
--- NOTE | 2017-11-07 12:56 | OP ---
Operative Note - Note: Operative Date: 11/07/17 Pre-Operative Diagnosis: Choledocholithiasis, acute cholecystitis Operation: laparoscopic cholecystectomy Post-Operative Diagnosis: Same as Pre-op Surgeon: Kunal Chavarria Comfort Filler: Kathi Alatorre Anesthesiologist/CHEMICAL DETECTION EXPERT: Tatiana Wilkins Anesthesia: General Specimens Removed: gallbladder Estimated Blood Loss (mls): 20 Fluid Volume Replaced (mls): 600 Operative Report Dictated: Yes
[2017-11-07] MEDS ORDERED: PIPERACIL/TAZOB 3.375 GM 3.375 GM/50 ML PREMIX IVPB ONE (12:57)
--- NOTE | 2017-11-07 12:57 | SURG ---
Surgery Marriage Therapist Note Marriage Therapist: Kathi Alatorre PA-C Date of Service: 11/07/17 Diagnosis: Choledocholithiasis, acute cholecystitis Procedure: laparoscopic cholecystectomy I was present for the entirety of the operative procedure. For further detail, please refer to operative report. Visit type - Case Type Case Type: ED Admission - Emergency Emergency Visit: Yes ED Registration Date: 11/03/17 Care time: The patient presented to the Emergency Department on the above date and was hospitalized for further evaluation of their emergent condition. - New patient This patient is new to me today: Yes Date on this admission: 11/07/17
[2017-11-07] MEDS ORDERED: ACETAMINOPHEN INJECTION 100 ML IVPB ONE (13:00)
[2017-11-07] MEDS ORDERED: PIPERACILLIN/TAZOB 3.375 GM 3.375 GM in DEXTROSE 5%-WATER - 50 ML IVPB ONE (14:00)
[2017-11-07] MEDS: ELECTROLYTE-148 SOLN 1,000 ML IV SCH (14:00)
--- NOTE | 2017-11-07 14:37 | PN ---
Progress Note, Physician History of Present Illness: S/P laparoscopic cholecystectomy Denies abdominal pain No c/o fever/ chills Afebrile WBC 14k BC no growth - Current Medication List Current Medications: Active Medications Acetaminophen (Ofirmev Injection -) 1,000 mg IVPB Q6H PRN PRN Reason: FEVER Last Admin: 11/07/17 12:50 Dose: 1,000 mg Enoxaparin Sodium (Lovenox -) 60 mg SQ BID [facility] Fentanyl (Sublimaze Injection -) 50 mcg IVPUSH [id number] PRN PRN Reason: PAIN-PACU ORDER X 4 DOSES ONLY Last Admin: 11/07/17 13:10 Dose: 50 mcg Metronidazole (Flagyl 500mg Premixed Ivpb -) 500 mg in 100 mls @ 100 mls/hr IVPB Q6H-IV [facility] CEFTRIAXONE IN IS-OSM DEXTROSE (Ceftriaxone 2 Gm-D5w Bag) 2 gm in 50 mls @ 100 mls/hr IVPB DAILY [facility] Parenteral Electrolytes (Plasma-Lyte 148 -) 1,000 mls @ 83 mls/hr IV ASDIR [facility] Metoprolol Succinate (Toprol Xl -) 50 mg PO DAILY [facility] Nifedipine (Procardia Xl -) 90 mg PO DAILY [facility] Ondansetron HCl (Zofran Injection) 4 mg IVPUSH Q6H PRN PRN Reason: NAUSEA AND/OR VOMITING Oxycodone HCl (Roxicodone -) 10 mg PO Q6H PRN PRN Reason: PAIN LEVEL 6-10 Oxycodone HCl (Roxicodone -) 5 mg PO Q4H PRN PRN Reason: PAIN LEVEL 1-5 - Objective Vital Signs: Vital Signs Temperature 99.1 F 11/07/17 12:33 Pulse Rate 68 11/07/17 14:00 Respiratory Rate 14 11/07/17 14:00 Blood Pressure 130/72 11/07/17 14:00 O2 Sat by Pulse Oximetry (%) 97 11/07/17 14:00 Constitutional: Yes: No Distress Eyes: Yes: Conjunctiva Clear Cardiovascular: Yes: Regular Rate and Rhythm, S1, S2 Respiratory: Yes: Diminished Gastrointestinal: Yes: Normal Bowel Sounds, Soft. No: Tenderness Extremities: Yes: Other (decreased erythema distal R LE) Labs: CBC, BMP 11/07/17 06:12 11/07/17 06:12 INR, PTT INR 1.12 (0.82-1.09) 11/05/17 06:00 Assessment/Plan S/P laparoscopic cholecystectomy cellulitis R LE UTI Continue ceftriaxone for empiric coverage of biliary tract/ urinary tract/ skin pathogens Switch to po next 24hr
[2017-11-07] MEDS: ENOXAPARIN NA (PORCINE) 60 MG/0.6 ML DISP.SYRIN SQ SCH (21:15)
[2017-11-07] MEDS: METHYL SALICYLATE/MENTHOL OINT 30 GM TUBE TP SCH (21:15)
[2017-11-08] MEDS: ELECTROLYTE-148 SOLN 1,000 ML IV SCH (02:13)
[2017-11-08 08:21] LABS: LIPASE 50 U/L (73-393)
[2017-11-08 08:25] LABS: BASO % 0.4 % (0-2.0); EOS % 0.3 % (0-4.5); HEMATOCRIT 38.1 % (32.4-45.2); HEMOGLOBIN 12.4 GM/dL (10.7-15.3); LYMPH % 26.5 % (8-40); MCH 27.4 pg (25.7-33.7); MCHC 32.4 g/dl (32.0-36.0); MEAN CELL VOLUME 84.5 fl (80-96); MEAN PLT VOLUME 9.6 fl (7.5-11.1); MONO % 12.8 % (3.8-10.2); PLATELET COUNT 346 K/MM3 (134-434); RBC 4.51 M/mm3 (3.60-5.2); RDW 16.1 % (11.6-15.6); WHITE BLOOD COUNT 14.4 K/mm3 (4.0-10.0)
[2017-11-08 08:34] LABS: ANION GAP 9 (8-16); BLOOD UREA NITROGEN 8 mg/dl (7-18); CHLORIDE 103 mmol/L (98-107); CO2 29 mmol/L (22-28); CREATININE 0.3 mg/dl (0.6-1.3); GLUCOSE,RANDOM 93 mg/dl (74-106); POTASSIUM 3.6 mmol/L (3.5-5.1); SODIUM 141 mmol/L (136-145)
[2017-11-08 08:35] LABS: ALBUMIN 2.2 g/dl (3.5-5.0); BILIRUBIN,DIRECT 1.4 mg/dL (0.0-0.3); BILIRUBIN,TOTAL 1.9 mg/dl (0.2-1.0); CALCIUM 8.6 mg/dl (8.4-10.2); TOT PROT 5.7 g/dl (6.4-8.3)
[2017-11-08 08:36] LABS: ALK PHOS 350 U/L (32-92); SGOT/AST 33 U/L (10-42); SGPT/ALT 38 U/L (10-40)
[2017-11-08] MEDS ORDERED: PT OWN MED DRAWER 7, Y5N ONE (09:58)
[2017-11-08] MEDS: CEFTRIAXONE IN IS-OSM DEXTROSE 2 GM/50 ML BAG IVPB SCH ×2 (10:08→12:33)
[2017-11-08] MEDS: ENOXAPARIN NA (PORCINE) 60 MG/0.6 ML DISP.SYRIN SQ SCH ×2 (10:08→21:14)
[2017-11-08] MEDS: NIFEdipine E.R. 90 MG TABLET (FP) PO SCH (10:09)
[2017-11-08] MEDS: METHYL SALICYLATE/MENTHOL OINT 30 GM TUBE TP SCH ×2 (10:24→22:01)
--- NOTE | 2017-11-08 10:45 | HOSP ---
Subjective - Review of Symptoms Events since last encounter: Code [place] 82F with PMH of polio s/p Right hip fusion, Right ankle fusion, chronic Right LE veous statis ulcer, htn, afib (on Eliquis), admitted to [facility] for ERCP/ cholecystectomy on 11/04/17. Pt c/o new onset Right arm weakness/tingling. Pt c/o Right elbow pain, though denies injury. PE: General: AAOx3, NAD Respiratory: CTAB CV: RRR, no murmurs appreciated GI: soft, nontender to palpation Neuro: 3/5 muscle strength on Right UE and 3/5 Right LE (chronic). Mild Right facial droop, Muscle strength to Left side 5/5. Reflexes 2/4 to kwadwo UE. Sensation intact and symmetric throughout. MS: no creptius or deformity appreciated to Right elbow Stroke order set entered Stat Head CT Neuro (Dr. Duarte) Consult Primary Care Provider notified and will f/u. <Melissa Munoz - Last Filed: 11/08/17 10:49> - Review of Symptoms Events since last encounter: Agree with above findings and plan with exceptions mentioned below. responded to venita moreira. patient reports right elbow pain, however on discussion with RN, had reported RUE weakness with tingling and numbness. NO other new symptoms. O/E: SBP 150s,oxygenating well,afebrile RUE 2-3/5, unable to life, weak at shoulder shrug, mild right facial droop and right facial muscle weakness. sensation to gross touch intact bilaterally however, reporting RUE tingling/numbness. LE with polio as a child chronic weakness 2/5, unchanged per patient. (correction to resident note; LLE weak from polio, 2/5, not 5/5). Plan: CT head stroke protocol ordered stat (patient one her way down). records reviewed, s/p lap cholecystectomy 11/07, Afib on eliquis. Was on lovenox that was held pre-operatively, resumed last night, received 60 mg last evening and this AM. Neurology consulted with Dr. Duarte, case discussed in detail. Given recent surgery and on full dose lovenox, not a tpa candidate. Agrees with CT head stat, if bleed, will need ICU or transfer. If neg for bleed , recommend stroke w/u with MRI brain/2d ECHo, carotids, monitoring on stroke unit. Course, findings and neurology recommendations have been communicated to primary provider Amira Gonzalez NP, will defer further management and follow up to the same. total critical care time spent at bedside 35 min. <Cecil Bess - Last Filed: 11/08/17 11:52> Physical Examination Vital Signs: Vital Signs Temperature 98 F 11/08/17 10:00 Pulse Rate 98 H 11/08/17 10:42 Respiratory Rate 18 11/08/17 10:42 Blood Pressure 156/91 11/08/17 10:42 O2 Sat by Pulse Oximetry (%) 97 11/07/17 21:00 Labs: CBC, BMP 11/08/17 06:20 11/08/17 06:20 <Melissa Munoz - Last Filed: 11/08/17 10:49> Vital Signs: Vital Signs Temperature 98 F 11/08/17 10:00 Pulse Rate 98 H 11/08/17 10:42 Respiratory Rate 18 11/08/17 10:42 Blood Pressure 156/91 11/08/17 10:42 O2 Sat by Pulse Oximetry (%) 97 11/07/17 21:00 Labs: CBC, BMP 11/08/17 06:20 11/08/17 06:20 <Cecil Bess - Last Filed: 11/08/17 11:52> Visit type - Emergency Visit Emergency Visit: Yes ED Registration Date: 11/03/17 Care time: The patient presented to the Emergency Department on the above date and was hospitalized for further evaluation of their emergent condition. - New Patient This patient is new to me today: Yes Date on this admission: 11/08/17 - Critical Care Critical Care patient: No <Melissa Munoz - Last Filed: 11/08/17 10:49>
[2017-11-08] MEDS: SODIUM CHLORIDE 1,000 ML IV SCH (12:32)
--- NOTE | 2017-11-08 12:46 | PN ---
Progress Note (short form) - Note Progress Note: Attending Surgeon POD #1 No c/o; recent events noted; tolerated diet VSS AGF abdomen benign; port site dressings c/d/i LFT's and bili trending down IMP: improved PLAN: Advance diet as tolerated; continue antibiotics and continue to trend LFT' s and bili and WBC count. Kunal Chavarria MD FACS
--- NOTE | 2017-11-08 12:53 | PN ---
Progress Note (short form) - Note Progress Note: Post op day#1.S/P Laproscopic cholecystectomy under Ga uneventful.Patient stable and being r/o for a stroke.CT of head is negative as of now.Patient is c/ o right side weakness.P82,BP150/96 and Fzk886% on O2 2L NC.Will f/u tomorrow.
--- NOTE | 2017-11-08 13:06 | CONSULT ---
Consult - text type - Consultation Consultation Note: Neurology HPI: 82F with PMH of polio s/p Right hip fusion, Right ankle fusion, chronic Right LE veous statis ulcer, htn, afib (on Eliquis), admitted to [facility] for ERCP/ cholecystectomy on 11/04/17. Today, c/o new onset Right arm weakness/tingling along wqith Right elbow pain, no trauma reported by patient. James moreira was called, I spoke with hospitalist. Patient with possible CVA, CT head without acute changes, no bleed. Patient Not TPA candidate due to being on AC and recent surgery. Patient transferred to ICU, family at bedside, discussed with them. Ordered MRI brain to further evaluate for possible CVA. Would allow permissive HTN for 24hrs. She is moving RUE but with c/o pain as well as weakness. Recent Travel: pt denies PAST MEDICAL HISTORY: Polio, Chronic RLE venous stasis ulcer, HTN, AFib on Eliquis PAST SURGICAL HISTORY: corrective hip surgery as a child for polio, mult tendon repairs for same Social History: Smoking: pt denies Alcohol: pt denies Drugs: pt denies Family History: mother age 62, uknown ? [place] father in his 70s, peritonitis 3 sisters BrCA 5 sisters alive and well Allergies famciclovir [From Famvir] Allergy Sulfa (Sulfonamide Antibiotics) Allergy HOME MEDICATIONS: 3 Medication Instructions Recorded Ammonium Lactate Lotion 1 applic TP ASDIR #1 bottle 05/31/16 [Lac-Hydrin 12] Cholecalciferol (Vitamin D3) 2,000 unit PO DAILY capsule 03/19/17 [Vitamin D3] REVIEW OF SYSTEMS CONSTITUTIONAL: Present: loss of appetite Absent: fever, chills, diaphoresis, generalized weakness, malaise, weight change HEENT: Absent: rhinorrhea, nasal congestion, throat pain, throat swelling, difficulty swallowing, mouth swelling, ear pain, eye pain, visual changes CARDIOVASCULAR: Absent: chest pain, syncope, palpitations, irregular heart rate, lightheadedness , peripheral edema RESPIRATORY: Absent: cough, shortness of breath, dyspnea with exertion, orthopnea, wheezing, stridor, hemoptysis GASTROINTESTINAL: Present: nausea Absent: abdominal pain, abdominal distension, vomiting, diarrhea, constipation, melena, hematochezia GENITOURINARY: Absent: dysuria, frequency, urgency, hesitancy, hematuria, flank pain, genital pain MUSCULOSKELETAL: Absent: myalgia, arthralgia, joint swelling, back pain, neck pain SKIN: Absent: rash, itching, pallor HEMATOLOGIC/IMMUNOLOGIC: Absent: easy bleeding, easy bruising, lymphadenopathy, frequent infections ENDOCRINE: Absent: unexplained weight gain, unexplained weight loss, heat intolerance, cold intolerance NEUROLOGIC: Absent: headache,, dizziness, unsteady gait, mental status changes, bladder or bowel incontinence PSYCHIATRIC: Absent: anxiety, depression, suicidal or homicidal ideation, hallucinations. 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 No able to raise UE for FTN testing MS: no creptius or deformity appreciated to Right elbow Ext: Pulses intact, no rashes Imaging: CT head reviewed Plan: 82F with PMH of polio s/p Right hip fusion, Right ankle fusion, chronic Right LE veous statis ulcer, htn, afib (on Eliquis), admitted to [facility] for ERCP/ cholecystectomy on 11/04/17. Today, c/o new onset Right arm weakness/tingling along wqith Right elbow pain, no trauma reported by patient. James moreira was called, I spoke with hospitalist. Patient with possible CVA, CT head without acute changes, no bleed. Patient Not TPA candidate due to being on AC. Patient transferred to ICU, family at bedside, discussed with them. Ordered MRI brain to further evaluate for possible CVA. Would allow permissive HTN for 24hrs, systolic up to 180's acceptable She is moving RUE but with c/o pain as well as weakness. Physical therapy recommended On Eliquis, can continue, no bleed on CT head Statin recommended If CVA noted on imaging, then Echo and CD should be checked Remains in ICU, close monitoring, neuro checks Critical care time 50 mins
[2017-11-08] MEDS: oxyCODONE HCL 5 MG TABLET PO PRN ×2 (13:15→21:50)
[2017-11-08 13:33] LABS: INR 1.37 (0.82-1.09); PROTHROMBIN TIME (PATIENT) 15.5 SEC (9.98-11.88)
--- NOTE | 2017-11-08 17:22 | PN ---
Physical Exam: SUBJECTIVE: Patient seen and examined in ICU. Family present. Complaining of right arm elbow and forearm pain. Code Russell called earlier today for right upper extremity weakness. CT had negative. OBJECTIVE: Vital Signs Period Temp Pulse Resp BP Sys/Sequeira Pulse Ox Last 24 Hr 97.6 F-98.5 F 70-98 12-18 127-165/82-100 96-97 GENERAL: The patient is awake, alert, and fully oriented, in no acute distress. LUNGS: Breath sounds equal, clear to auscultation bilaterally, no wheezes, no crackles, no accessory muscle use. HEART: Regular rate and rhythm, S1, S2 without murmur, rub or gallop. ABDOMEN: Trochanter port site bandages c/d/i; + bowel sounds UPPER EXTREMITIES: RIGHT: No joint swelling, no erythema, no warmth, 2+ radial pulses, limited ROM secondary to pain; daughter/poultry processor states arm appears as it always does LOWER EXTREMITIES: 2+ pulses, warm, well-perfused, no edema. NEUROLOGICAL: Cranial nerves II through XII grossly intact. Normal speech, gait not observed. Laboratory Results - last 24 hr 11/08/17 11/08/17 11/08/17 06:20 06:20 13:06 WBC 14.4 H RBC 4.51 Hgb 12.4 D Hct 38.1 MCV 84.5 MCH 27.4 MCHC 32.4 RDW 16.1 H Plt Count 346 MPV 9.6 Neutrophils % 60.0 Lymphocytes % 26.5 D Monocytes % 12.8 H Eosinophils % 0.3 Basophils % 0.4 PT with INR 15.50 H INR 1.37 H Sodium 141 Potassium 3.6 Chloride 103 Carbon Dioxide 29 H D Anion Gap 9 BUN 8 Creatinine 0.3 L Creat Clearance w eGFR > 60 Random Glucose 93 Calcium 8.6 Total Bilirubin 1.9 H D Direct Bilirubin 1.4 H D AST 33 D ALT 38 D Alkaline Phosphatase 350 H Creatine Kinase Troponin I Total Protein 5.7 L Albumin 2.2 L Lipase 50 L 11/08/17 13:06 WBC RBC Hgb Hct MCV MCH MCHC RDW Plt Count MPV Neutrophils % Lymphocytes % Monocytes % Eosinophils % Basophils % PT with INR INR Sodium Potassium Chloride Carbon Dioxide Anion Gap BUN Creatinine Creat Clearance w eGFR Random Glucose Calcium Total Bilirubin Direct Bilirubin AST ALT Alkaline Phosphatase Creatine Kinase 21 L Troponin I < 0.02 Total Protein Albumin Lipase Active Medications Generic Name Dose Route Start Last Admin Trade Name Freq PRN Reason Stop Dose Admin Acetaminophen 1,000 mg 11/07/17 12:57 11/07/17 12:50 Ofirmev Injection - IVPB 1,000 mg Q6H PRN Administration FEVER Enoxaparin Sodium 60 mg 11/07/17 22:00 11/08/17 10:08 Lovenox - SQ 60 mg BID [facility] Administration Metronidazole 500 mg in 100 mls @ 100 mls/hr 11/07/17 15:00 11/08/17 16:21 Flagyl 500mg Premixed Ivpb - IVPB 100 mls/hr Q6H-IV [facility] Administration CEFTRIAXONE IN IS-OSM DEXTROSE 2 gm in 50 mls @ 100 mls/hr 11/08/17 10:00 12:33 Ceftriaxone 2 Gm-D5w Bag IVPB 100 mls/hr DAILY [facility] Administration Sodium Chloride 1,000 mls @ 42 mls/hr 11/08/17 10:45 11/08/17 12:32 Normal Saline - IV 42 mls/hr ASDIR [facility] Administration Methyl Salicylate 1 applic 11/07/17 22:00 11/08/17 10:24 Peter-Wolff - TP Not Given BID [facility] Metoprolol Succinate 50 mg 11/08/17 10:00 11/08/17 10:09 Toprol Xl - PO 50 mg DAILY [facility] Administration Nifedipine 90 mg 11/08/17 10:00 11/08/17 10:09 Procardia Xl - PO 90 mg DAILY [facility] Administration Ondansetron HCl 4 mg 11/07/17 12:57 Zofran Injection IVPUSH Q6H PRN NAUSEA AND/OR VOMITING Oxycodone HCl 10 mg 11/07/17 12:44 Roxicodone - PO Q6H PRN PAIN LEVEL 6-10 Oxycodone HCl 5 mg 11/07/17 12:57 11/08/17 13:15 Roxicodone - PO 5 mg Q4H PRN Administration PAIN LEVEL 1-5 ASSESSMENT/PLAN 82 year-ld female with PMH signficant for HTN, afib on Eliquis, polio s/p right hip and right ankle fusions, and chronic RLE venous stasis ulcer.Admitted to [facility] with painless jaundice, decreased appetite and nausea; transferred to [facility] for ERCP and cholecystectomy. 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 --Ca19-9 pending --will need outpatient follow up Right upper extremity weakness --developed sometime early hours this morning; symptoms described through the day as numbness, weakness, heaviness, pain --Code Drew called; on Lovenox, not candidate for TPA --CT head negative --MRI pending --US carotids --Echo --may be musculoskeletal from intra-operative positioning --also has h/o bursitis in shoulders and elbows; uric acid pending Atrial fibrillation --rate well-controlled, continue Toprol XL --continue full dose Lovenox for now; will switch to Eliquis BID Hypertension --permissive HTN today --Toprol XL, nifedipine were given today prior to Code Russell E coli UTI --continue ceftriaxone FEN Fluids: PO intake adequate Electrolytes: replete as indicated Nutrition: full liquids low sodium DVT prophylaxis: on Lovenox Physical therapy: h/o polio, uses walker at home Dispo: continues to require ICU level care. Visit type - Emergency Visit Emergency Visit: Yes ED Registration Date: 11/03/17 Care time: The patient presented to the Emergency Department on the above date and was hospitalized for further evaluation of their emergent condition. - New Patient This patient is new to me today: Yes Date on this admission: 11/08/17 - Critical Care Critical Care patient: Yes Total Critical Care Time (in minutes): 45 Critical Care Statement: The care of this patient involved high complexity decision making to prevent further life threatening deterioration of the patient 's condition and/or to evaluate & treat vital organ system(s) failure or risk of failure. - Discharge Referral Referred to [facility] Med P.C.: No
--- NOTE | 2017-11-08 21:43 | CONSULT ---
Consult Consult Specialty:: Pulmonary Critical Care Reason for Consultation:: R arm weakness - History of Present Illness History of Present Illness: 82 yo female with h/o polio, chronic RLE venous stasis ulcer, HTN, Afib (on Eliquis) who presented to [facility] on [facility]/03 with decreased appetite, nausea and jaundice. MRCP c/w choledocholithiasis and cholelithiasis. Transferred to [facility] for ERCP and cholecystectomy on 11/04. On 11/05 she underwent ERCP with CBD stone removal, and subsequently underwent laparoscopic cholecystectomy on 11/07. Pt was doing well until earlier today she started new onset R arm weakness/tingling. Stroke team activated, CT head negative for bleed. She is now transferred to ICU for further management and work-up. Current Medications Acetaminophen (Ofirmev Injection -) 1,000 mg IVPB Q6H PRN PRN Reason: FEVER Last Admin: 11/07/17 12:50 Dose: 1,000 mg Enoxaparin Sodium (Lovenox -) 60 mg SQ BID [facility] Last Admin: 11/08/17 21:14 Dose: 60 mg Metronidazole (Flagyl 500mg Premixed Ivpb -) 500 mg in 100 mls @ 100 mls/hr IVPB Q6H-IV [facility] Last Admin: 11/08/17 21:15 Dose: 100 mls/hr CEFTRIAXONE IN IS-OSM DEXTROSE (Ceftriaxone 2 Gm-D5w Bag) 2 gm in 50 mls @ 100 mls/hr IVPB DAILY [facility] Last Admin: 11/08/17 12:33 Dose: 100 mls/hr Sodium Chloride (Normal Saline -) 1,000 mls @ 42 mls/hr IV ASDIR [facility] Last Admin: 11/08/17 12:32 Dose: 42 mls/hr Methyl Salicylate (Peter-Wolff -) 1 applic TP BID [facility] Last Admin: 11/08/17 10:24 Dose: Not Given Metoprolol Succinate (Toprol Xl -) 50 mg PO DAILY [facility] Last Admin: 11/08/17 10:09 Dose: 50 mg Nifedipine (Procardia Xl -) 90 mg PO DAILY [facility] Last Admin: 11/08/17 10:09 Dose: 90 mg Ondansetron HCl (Zofran Injection) 4 mg IVPUSH Q6H PRN PRN Reason: NAUSEA AND/OR VOMITING Oxycodone HCl (Roxicodone -) 10 mg PO Q6H PRN PRN Reason: PAIN LEVEL 6-10 Oxycodone HCl (Roxicodone -) 5 mg PO Q4H PRN PRN Reason: PAIN LEVEL 1-5 Last Admin: 11/08/17 13:15 Dose: 5 mg - Past Medical History Cardio/Vascular: Yes: AFIB, HTN Gastrointestinal: Yes: Other (Pancreatic cysts) Hepatobiliary: Yes: Cholelithiasis, Choledocholithiasis ...LMP Comment: 82 YEARS OLD ...: No Musculoskeletal: Yes: Other (Polio acquired age 6 months RLE, Has right hip and ankle fusions and multiple ligament surgeries. Has chronic RLE ulcer. ) Rheumatology: Yes: Other - Past Surgical History Past Surgical History: Yes: (C section x 3) Additional Surgical History: Right hip and ankle fusions and mutiple ligament repairs RLE required for polio - Alcohol/Substance Use Hx Alcohol Use: Yes (rare; wine on holidays) - Smoking History Smoking history: Former smoker Have you smoked in the past 12 months: No If you are a former smoker, when did you quit?: 47 YEARS AGO - Social History Usual Living Arrangement: With Child ADL: Family Assistance Occupation: retired secratary History of Recent Travel: No Home Medications - Allergies Allergies/Adverse Reactions: Allergies Allergy/AdvReac Type Severity Reaction Status Date / Time famciclovir [From Famvir] Allergy Verified 08/06/15 09:39 Sulfa (Sulfonamide Allergy Verified 08/06/15 09:39 Antibiotics) - Home Medications Home Medications: Ambulatory Orders Ammonium Lactate Lotion [Lac-Hydrin 12] 1 applic TP ASDIR #1 bottle 05/31/16 Cholecalciferol (Vitamin D3) [Vitamin D3] 2,000 unit PO DAILY capsule 03/19/17 Family Disease History - Family Disease History Family Disease History: Heart Disease: Mother ( heart failure 84), CA: Sister (breast, lung oral cancers), Other: Father ( of sepsis) Physical Exam Vital Signs: Vital Signs Temperature 98.9 F 11/08/17 18:00 Pulse Rate 69 11/08/17 20:00 Respiratory Rate 20 11/08/17 20:00 Blood Pressure 122/87 11/08/17 20:00 O2 Sat by Pulse Oximetry (%) 96 11/08/17 12:00 Constitutional: Yes: No Distress Cardiovascular: Yes: S1, S2 Respiratory: Yes: CTA Bilaterally Gastrointestinal: Yes: Normal Bowel Sounds, Soft. No: Tenderness Extremities: Yes: Other (R chin erythema, chronic) Edema: No Peripheral Pulses WNL: Yes Neurological: Yes: Other (awake, interactive. Moving all four extremities, R side weaker than L) Labs: CBC, BMP 11/08/17 06:20 11/08/17 06:20 CBCD WBC 14.4 K/mm3 (4.0-10.0) H 11/08/17 06:20 RBC 4.51 M/mm3 (3.60-5.2) 11/08/17 06:20 Hgb 12.4 GM/dL (10.7-15.3) D 11/08/17 06:20 Hct 38.1 % (32.4-45.2) 11/08/17 06:20 MCV 84.5 fl (80-96) 11/08/17 06:20 MCHC 32.4 g/dl (32.0-36.0) 11/08/17 06:20 RDW 16.1 % (11.6-15.6) H 11/08/17 06:20 Plt Count 346 K/MM3 (134-434) 11/08/17 06:20 MPV 9.6 fl (7.5-11.1) 11/08/17 06:20 CMP Sodium 141 mmol/L (136-145) 11/08/17 06:20 Potassium 3.6 mmol/L (3.5-5.1) 11/08/17 06:20 Chloride 103 mmol/L (98-107) 11/08/17 06:20 Carbon Dioxide 29 mmol/L (22-28) H D 11/08/17 06:20 Anion Gap 9 (8-16) 11/08/17 06:20 BUN 8 mg/dl (7-18) 11/08/17 06:20 Creatinine 0.3 mg/dl (0.6-1.3) L 11/08/17 06:20 Creat Clearance w eGFR > 60 (>60) 11/08/17 06:20 Calcium 8.6 mg/dl (8.4-10.2) 11/08/17 06:20 Total Bilirubin 1.9 mg/dl (0.2-1.0) H D 11/08/17 06:20 AST 33 U/L (10-42) D 11/08/17 06:20 ALT 38 U/L (10-40) D 11/08/17 06:20 Alkaline Phosphatase 350 U/L (32-92) H 11/08/17 06:20 Total Protein 5.7 g/dl (6.4-8.3) L 11/08/17 06:20 Albumin 2.2 g/dl (3.5-5.0) L 11/08/17 06:20 Problem List - Problems (1) Choledocholithiasis Code(s): K80.50 - CALCULUS OF BILE DUCT W/O CHOLANGITIS OR CHOLECYST W/O OBST (2) History of anticoagulant use Code(s): Z92.29 - PERSONAL HISTORY OF OTHER DRUG THERAPY (3) Atrial fibrillation Code(s): I48.91 - UNSPECIFIED ATRIAL FIBRILLATION Qualifiers: Atrial fibrillation type: unspecified Qualified Code(s): I48.91 - Unspecified atrial fibrillation Assessment/Plan Choledocholithiasis with cholangitis s/p ERCP CBD stone removal on 11/05, lap manuel on 11/07 E.Coli UTI Afib on AC HTN R arm weakness c/f ?CVA -neurology following -MRI brain pending -US carotids -f/u TTE -cont Toprol and Nifedipine -cont Lovenox -frequent neuro checks -cont ceftriaxone/flagyl [facility] Critical Care Time: 35 min
[2017-11-09] MEDS: oxyCODONE HCL 5 MG TABLET PO PRN (06:02)
[2017-11-09 06:41] LABS: BASO % 0.3 % (0-2.0); EOS % 0.2 % (0-4.5); HEMATOCRIT 34.6 % (32.4-45.2); HEMOGLOBIN 11.5 GM/dL (10.7-15.3); LYMPH % 18.6 % (8-40); MCH 27.8 pg (25.7-33.7); MCHC 33.1 g/dl (32.0-36.0); MONO % 11.5 % (3.8-10.2); NEUT % 69.4 % (42.8-82.8); PLATELET COUNT 342 K/MM3 (134-434); RBC 4.11 M/mm3 (3.60-5.2); RDW 16.1 % (11.6-15.6); WHITE BLOOD COUNT 15.2 K/mm3 (4.0-10.0)
[2017-11-09 07:03] LABS: LIPASE 880 U/L (73-393)
[2017-11-09 07:05] LABS: MAGNESIUM 1.6 mg/dL (1.8-2.4)
[2017-11-09 07:10] LABS: URIC ACID 3.6 mg/dL (2.6-7.2)
[2017-11-09 07:48] LABS: ALBUMIN 2.1 g/dl (3.4-5.0); ALK PHOS 788 U/L (45-117); ANION GAP 10 (8-16); BILIRUBIN,DIRECT 2.7 mg/dL (0.0-0.2); BILIRUBIN,TOTAL 3.2 mg/dL (0.2-1.0); BLOOD UREA NITROGEN 10 mg/dL (7-18); CALCIUM 7.5 mg/dL (8.5-10.1); CHLORIDE 102 mmol/L (98-107); CO2 26 mmol/L (21-32); CREATININE 0.3 mg/dL (0.55-1.02); GLUCOSE,RANDOM 98 mg/dL (74-106); POTASSIUM 3.4 mmol/L (3.5-5.1); SGOT/AST 44 U/L (15-37); SGPT/ALT 31 U/L (12-78); SODIUM 138 mmol/L (136-145); TOT PROT 4.9 g/dl (6.4-8.2)
--- NOTE | 2017-11-09 09:19 | PN ---
Progress Note (short form) - Note Progress Note: Patient seen and examined in the ICU. Awake and alert. Still with some tingling/weakness in the RUE. No MARIE, BOV, or dizziness. No CP or SOB. Noted increasing Alk Phos on labs. Intake & Output 11/06/17 11/07/17 11/08/17 11/09/17 23:59 23:59 23:59 23:59 Intake Total 3551 3296 2761 556 Output Total 20 1200 100 Balance 3551 3276 1561 456 Weight 132 lb 4.8 oz Last Vital Signs Temp Pulse Resp BP Pulse Ox 98.2 F 77 19 150/85 93 L 11/09/17 06:00 11/09/17 06:00 11/09/17 06:00 11/09/17 06:00 11/08/17 23:35 Active Medications Acetaminophen (Ofirmev Injection -) 1,000 mg IVPB Q6H PRN PRN Reason: FEVER Last Admin: 11/07/17 12:50 Dose: 1,000 mg Enoxaparin Sodium (Lovenox -) 60 mg SQ BID [facility] Last Admin: 11/08/17 21:14 Dose: 60 mg Metronidazole (Flagyl 500mg Premixed Ivpb -) 500 mg in 100 mls @ 100 mls/hr IVPB Q6H-IV [facility] Last Admin: 11/09/17 02:02 Dose: 100 mls/hr CEFTRIAXONE IN IS-OSM DEXTROSE (Ceftriaxone 2 Gm-D5w Bag) 2 gm in 50 mls @ 100 mls/hr IVPB DAILY [facility] Last Admin: 11/08/17 12:33 Dose: 100 mls/hr Sodium Chloride (Normal Saline -) 1,000 mls @ 42 mls/hr IV ASDIR [facility] Last Admin: 11/08/17 12:32 Dose: 42 mls/hr Methyl Salicylate (Peter-Wolff -) 1 applic TP BID [facility] Last Admin: 11/08/17 22:01 Dose: 1 applic Metoprolol Succinate (Toprol Xl -) 50 mg PO DAILY [facility] Last Admin: 11/08/17 10:09 Dose: 50 mg Nifedipine (Procardia Xl -) 90 mg PO DAILY [facility] Last Admin: 11/08/17 10:09 Dose: 90 mg Ondansetron HCl (Zofran Injection) 4 mg IVPUSH Q6H PRN PRN Reason: NAUSEA AND/OR VOMITING Oxycodone HCl (Roxicodone -) 10 mg PO Q6H PRN PRN Reason: PAIN LEVEL 6-10 Oxycodone HCl (Roxicodone -) 5 mg PO Q4H PRN PRN Reason: PAIN LEVEL 1-5 Last Admin: 11/09/17 06:02 Dose: 5 mg Constitutional: Yes: Awake and alert, No Distress Cardiovascular: Yes: S1, S2 Respiratory: Yes: CTA Bilaterally Gastrointestinal: Yes: Normal Bowel Sounds, Soft. No: Tenderness Extremities: Yes: Other (R chin erythema, chronic) Edema: No Peripheral Pulses WNL: Yes Neurological: Yes: awake, RUE 3/5 Labs: Laboratory Results - last 24 hr 11/08/17 11/08/17 11/09/17 13:06 13:06 05:25 WBC RBC Hgb Hct MCV MCH MCHC RDW Plt Count MPV Neutrophils % Lymphocytes % Monocytes % Eosinophils % Basophils % PT with INR 15.50 H INR 1.37 H Sodium 138 Potassium 3.4 L Chloride 102 Carbon Dioxide 26 Anion Gap 10 BUN 10 Creatinine 0.3 L Creat Clearance w eGFR > 60 Random Glucose 98 Uric Acid Calcium 7.5 L Magnesium Total Bilirubin 3.2 H Direct Bilirubin 2.7 H AST 44 H ALT 31 Alkaline Phosphatase 788 H Creatine Kinase 21 L Troponin I < 0.02 Total Protein 4.9 L Albumin 2.1 L Triglycerides Cholesterol Total LDL Cholesterol HDL Cholesterol Lipase 880 H 11/09/17 11/09/17 05:25 05:25 WBC 15.2 H RBC 4.11 Hgb 11.5 Hct 34.6 MCV 84.0 MCH 27.8 MCHC 33.1 RDW 16.1 H Plt Count 342 MPV 10.0 Neutrophils % 69.4 Lymphocytes % 18.6 D Monocytes % 11.5 H Eosinophils % 0.2 Basophils % 0.3 PT with INR INR Sodium Potassium Chloride Carbon Dioxide Anion Gap BUN Creatinine Creat Clearance w eGFR Random Glucose Uric Acid 3.6 Calcium Magnesium 1.6 L Total Bilirubin Direct Bilirubin AST ALT Alkaline Phosphatase Creatine Kinase Troponin I Total Protein Albumin Triglycerides 88 Cholesterol 150 Total LDL Cholesterol 94 HDL Cholesterol 12 L Lipase Problem List - Problems (1) Choledocholithiasis Code(s): K80.50 - CALCULUS OF BILE DUCT W/O CHOLANGITIS OR CHOLECYST W/O OBST (2) History of anticoagulant use Code(s): Z92.29 - PERSONAL HISTORY OF OTHER DRUG THERAPY (3) Atrial fibrillation Code(s): I48.91 - UNSPECIFIED ATRIAL FIBRILLATION Qualifiers: Atrial fibrillation type: unspecified Qualified Code(s): I48.91 - Unspecified atrial fibrillation Assessment/Plan Choledocholithiasis with cholangitis s/p ERCP CBD stone removal on 11/05, lap manuel on 11/07 E.Coli UTI Afib on AC HTN Suspected new CVA with resultant RUE weakness -MRI brain pending -US carotids -f/u TTE -cont Toprol and Nifedipine -cont Lovenox 60mg BID -Neuro checks -Ceftriaxone/flagyl per ID -GI follow up for increasing Alk Phos -Stroke unit monitoring Dr Solano Critical care time spent in reviewing chart, evaluating patient and formulating plan - 36 minutes.
[2017-11-09] MEDS: ENOXAPARIN NA (PORCINE) 60 MG/0.6 ML DISP.SYRIN SQ SCH ×2 (09:25→22:11)
[2017-11-09] MEDS: NIFEdipine E.R. 90 MG TABLET (FP) PO SCH (09:26)
[2017-11-09] MEDS ORDERED: PT OWN MED DRAWER 7, Y5N ONE (09:30)
[2017-11-09] MEDS: CEFTRIAXONE IN IS-OSM DEXTROSE 2 GM/50 ML BAG IVPB SCH (09:37)
[2017-11-09] MEDS: METHYL SALICYLATE/MENTHOL OINT 30 GM TUBE TP SCH ×2 (09:38→22:11)
[2017-11-09] MEDS ORDERED: POTASSIUM CHLORIDE TABS 20 MEQ TABLET.ER (FP) PO ONE ×2 (09:45→15:15)
[2017-11-09] MEDS ORDERED: MAGNESIUM SULF 50% (8.12 MEQ/2 ML-1 GM VIAL) IVPB ONE (09:45)
--- NOTE | 2017-11-09 10:49 | PN ---
Progress Note, Physician History of Present Illness: Transferred to ICU with new onset R sided weakness Awake and alert Offers no focal complaint Denies abdominal pain , N/V Afebrile but WBC remains elevated Elevated LFTs noted - Current Medication List Current Medications: Active Medications Acetaminophen (Ofirmev Injection -) 1,000 mg IVPB Q6H PRN PRN Reason: FEVER Last Admin: 11/07/17 12:50 Dose: 1,000 mg Enoxaparin Sodium (Lovenox -) 60 mg SQ BID [facility] Last Admin: 11/09/17 09:25 Dose: 60 mg Metronidazole (Flagyl 500mg Premixed Ivpb -) 500 mg in 100 mls @ 100 mls/hr IVPB Q6H-IV [facility] Last Admin: 11/09/17 09:25 Dose: 100 mls/hr CEFTRIAXONE IN IS-OSM DEXTROSE (Ceftriaxone 2 Gm-D5w Bag) 2 gm in 50 mls @ 100 mls/hr IVPB DAILY [facility] Last Admin: 11/09/17 09:37 Dose: 100 mls/hr Sodium Chloride (Normal Saline -) 1,000 mls @ 42 mls/hr IV ASDIR [facility] Last Admin: 11/08/17 12:32 Dose: 42 mls/hr Methyl Salicylate (Peter-Wolff -) 1 applic TP BID [facility] Last Admin: 11/09/17 09:38 Dose: 1 applic Metoprolol Succinate (Toprol Xl -) 50 mg PO DAILY [facility] Last Admin: 11/09/17 09:26 Dose: 50 mg Nifedipine (Procardia Xl -) 90 mg PO DAILY [facility] Last Admin: 11/09/17 09:26 Dose: 90 mg Ondansetron HCl (Zofran Injection) 4 mg IVPUSH Q6H PRN PRN Reason: NAUSEA AND/OR VOMITING Oxycodone HCl (Roxicodone -) 10 mg PO Q6H PRN PRN Reason: PAIN LEVEL 6-10 Oxycodone HCl (Roxicodone -) 5 mg PO Q4H PRN PRN Reason: PAIN LEVEL 1-5 Last Admin: 11/09/17 06:02 Dose: 5 mg - Objective Vital Signs: Vital Signs Temperature 98.2 F 11/09/17 06:00 Pulse Rate 77 11/09/17 06:00 Respiratory Rate 19 11/09/17 06:00 Blood Pressure 150/85 11/09/17 06:00 O2 Sat by Pulse Oximetry (%) 93 L 11/08/17 23:35 Constitutional: Yes: No Distress Eyes: Yes: Conjunctiva Clear Cardiovascular: Yes: Regular Rate and Rhythm, S1, S2 Respiratory: Yes: CTA Bilaterally Gastrointestinal: Yes: Normal Bowel Sounds, Soft, Tenderness, Other (+ RUQ tenderness) Edema: Yes Edema: LLE: 1+, RLE: 1+ Wound/Incision: Yes: Other (R LE erythema/ warmth improved) Labs: CBC, BMP 11/09/17 05:25 11/09/17 05:25 INR, PTT INR 1.37 (0.82-1.09) H 11/08/17 13:06 Assessment/Plan R/O CVA S/P laparoscopic cholecystectomy (11/07) /ERCP (11/05) elevated TBR, Alk phos noted ? retained stone ? meds Cellulitis R LE - improved UTI R/O CVA D/C ceftriaxone/ flagyl Observe off GI follow up
--- NOTE | 2017-11-09 11:11 | EKG ---
Test Reason : Blood Pressure : / mmHG Vent. Rate : 080 BPM Atrial Rate : 064 BPM P-R Int : 000 ms QRS Dur : 102 ms QT Int : 380 ms P-R-T Axes : 000 -35 018 degrees QTc Int : 438 ms ATRIAL FIBRILLATION LEFT AXIS DEVIATION INFERIOR INFARCT (CITED ON OR BEFORE 03-NOV-2017) ABNORMAL ECG WHEN COMPARED WITH ECG OF 03-NOV-2017 19:47, NO SIGNIFICANT CHANGE WAS FOUND Confirmed by JANICE RODRIGUEZ, OTF ([id number]) on 11/09/2017 11:10:34 AM Referred By: Jenifer GAMBLE Confirmed By:OTF CAMACHO MD
--- NOTE | 2017-11-09 12:12 | PN ---
Physical Exam: SUBJECTIVE: Patient seen and examined OBJECTIVE: Vital Signs Period Temp Pulse Resp BP Sys/Sequeira Pulse Ox Last 24 Hr 98.2 F-99.4 F 69-85 12-20 122-150/67-100 93-96 GENERAL: The patient is awake, alert, and fully oriented, in no acute distress. LUNGS: Breath sounds equal, clear to auscultation bilaterally, no wheezes, no crackles, no accessory muscle use. HEART: Regular rate and rhythm, S1, S2 without murmur, rub or gallop. ABDOMEN: Trochanter port site bandages c/d/i; + bowel sounds UPPER EXTREMITIES: RIGHT: No joint swelling, no erythema, no warmth, 2+ radial pulses, tenderness over olecranon; unable to raise arm from 90 to 180 due to weakness LOWER EXTREMITIES: 2+ pulses, warm, well-perfused, no edema. NEUROLOGICAL: Cranial nerves II through XII grossly intact. Normal speech, gait not observed. Laboratory Results - last 24 hr 11/08/17 11/08/17 11/09/17 13:06 13:06 05:25 WBC RBC Hgb Hct MCV MCH MCHC RDW Plt Count MPV Neutrophils % Lymphocytes % Monocytes % Eosinophils % Basophils % PT with INR 15.50 H INR 1.37 H Sodium 138 Potassium 3.4 L Chloride 102 Carbon Dioxide 26 Anion Gap 10 BUN 10 Creatinine 0.3 L Creat Clearance w eGFR > 60 Random Glucose 98 Uric Acid Calcium 7.5 L Magnesium Total Bilirubin 3.2 H Direct Bilirubin 2.7 H AST 44 H ALT 31 Alkaline Phosphatase 788 H Creatine Kinase 21 L Troponin I < 0.02 Total Protein 4.9 L Albumin 2.1 L Triglycerides Cholesterol Total LDL Cholesterol HDL Cholesterol Lipase 880 H 11/09/17 11/09/17 05:25 05:25 WBC 15.2 H RBC 4.11 Hgb 11.5 Hct 34.6 MCV 84.0 MCH 27.8 MCHC 33.1 RDW 16.1 H Plt Count 342 MPV 10.0 Neutrophils % 69.4 Lymphocytes % 18.6 D Monocytes % 11.5 H Eosinophils % 0.2 Basophils % 0.3 PT with INR INR Sodium Potassium Chloride Carbon Dioxide Anion Gap BUN Creatinine Creat Clearance w eGFR Random Glucose Uric Acid 3.6 Calcium Magnesium 1.6 L Total Bilirubin Direct Bilirubin AST ALT Alkaline Phosphatase Creatine Kinase Troponin I Total Protein Albumin Triglycerides 88 Cholesterol 150 Total LDL Cholesterol 94 HDL Cholesterol 12 L Lipase Active Medications Generic Name Dose Route Start Last Admin Trade Name Freq PRN Reason Stop Dose Admin Acetaminophen 1,000 mg 11/07/17 12:57 11/07/17 12:50 Ofirmev Injection - IVPB 1,000 mg Q6H PRN Administration FEVER Enoxaparin Sodium 60 mg 11/07/17 22:00 11/09/17 09:25 Lovenox - SQ 60 mg BID [facility] Administration Sodium Chloride 1,000 mls @ 42 mls/hr 11/08/17 10:45 11/08/17 12:32 Normal Saline - IV 42 mls/hr ASDIR [facility] Administration Methyl Salicylate 1 applic 11/07/17 22:00 11/09/17 09:38 Peter-Wolff - TP 1 applic BID [facility] Administration Metoprolol Succinate 50 mg 11/08/17 10:00 11/09/17 09:26 Toprol Xl - PO 50 mg DAILY [facility] Administration Nifedipine 90 mg 11/08/17 10:00 11/09/17 09:26 Procardia Xl - PO 90 mg DAILY [facility] Administration Ondansetron HCl 4 mg 11/07/17 12:57 Zofran Injection IVPUSH Q6H PRN NAUSEA AND/OR VOMITING Oxycodone HCl 10 mg 11/07/17 12:44 Roxicodone - PO Q6H PRN PAIN LEVEL 6-10 Oxycodone HCl 5 mg 11/07/17 12:57 11/09/17 06:02 Roxicodone - PO 5 mg Q4H PRN Administration PAIN LEVEL 1-5 ASSESSMENT/PLAN 82 year-old female with PMH signficant for HTN, afib on Eliquis, polio s/p right hip and right ankle fusions, and chronic RLE venous stasis ulcer. Admitted to [place] with painless jaundice, decreased appetite and nausea; transferred to [facility] for ERCP and cholecystectomy. Choledocholithiasis with cholangitis and biliary tract obstruction --s/p ERCP and sphincterotomy; stone and sludge extracted --s/p lap manuel 11/07 --bump in LFTs today; afebrile; WBC remains persistently elevated --discussed with surgeon Dr. Chavarria, will repeat labs tomorrow --discussed with Dr. 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 --Ca19-9 pending --will need outpatient follow up Right upper extremity weakness --developed on morning of POD #1; patient describes alternatively as as numbness, weakness, heaviness, pain --Code Russell was called; CT head and MRI brain negative for acute findings, US carotids unremarkable --Echo pending --ortho consult requested Atrial fibrillation --rate well-controlled, continue Toprol XL --continue full dose Lovenox tonight; heparin drip tomorrow morning Hypertension --continue Toprol XL E coli UTI --treated ceftriaxone x 5 days FEN Fluids: PO intake adequate Electrolytes: replete as indicated Nutrition: full liquids low sodium; NPO after midnight DVT prophylaxis: on Lovenox Physical therapy: h/o polio, uses walker at home Dispo: continues to require ICU level care. Visit type - Emergency Visit Emergency Visit: Yes ED Registration Date: 11/03/17 Care time: The patient presented to the Emergency Department on the above date and was hospitalized for further evaluation of their emergent condition. - New Patient This patient is new to me today: No - Critical Care Critical Care patient: Yes Total Critical Care Time (in minutes): 45 Critical Care Statement: The care of this patient involved high complexity decision making to prevent further life threatening deterioration of the patient 's condition and/or to evaluate & treat vital organ system(s) failure or risk of failure.
--- NOTE | 2017-11-09 12:47 | PN ---
Progress Note (short form) - Note Progress Note: Neurology HPI: 82F with PMH of polio s/p Right hip fusion, Right ankle fusion, chronic Right LE veous statis ulcer, htn, afib (on Eliquis), admitted to [facility] for ERCP/ cholecystectomy on 11/04/17. Today, c/o new onset Right arm weakness/tingling along with Right elbow pain, no trauma reported by patient. Code lillie was called , concern for possible CVA, CT head without acute changes, no bleed. Patient Not TPA candidate due to being on AC and recent surgery. Patient transferred to ICU, family at bedside, discussed with them again today. Ordered MRI brain to further evaluate for possible CVA but not completed, spoke to nurse to further contact radiology. Permissive HTN no longer needed. She is moving RUE but with c /o pain as well as weakness. If MRI brain negative then would consider orthopedic in nature especially given pain symptoms. Active Medications Acetaminophen (Ofirmev Injection -) 1,000 mg IVPB Q6H PRN PRN Reason: FEVER Last Admin: 11/07/17 12:50 Dose: 1,000 mg Enoxaparin Sodium (Lovenox -) 60 mg SQ BID [facility] Last Admin: 11/09/17 09:25 Dose: 60 mg Sodium Chloride (Normal Saline -) 1,000 mls @ 42 mls/hr IV ASDIR [facility] Last Admin: 11/08/17 12:32 Dose: 42 mls/hr Methyl Salicylate (Peter-Wolff -) 1 applic TP BID [facility] Last Admin: 11/09/17 09:38 Dose: 1 applic Metoprolol Succinate (Toprol Xl -) 50 mg PO DAILY [facility] Last Admin: 11/09/17 09:26 Dose: 50 mg Nifedipine (Procardia Xl -) 90 mg PO DAILY [facility] Last Admin: 11/09/17 09:26 Dose: 90 mg Ondansetron HCl (Zofran Injection) 4 mg IVPUSH Q6H PRN PRN Reason: NAUSEA AND/OR VOMITING Oxycodone HCl (Roxicodone -) 10 mg PO Q6H PRN PRN Reason: PAIN LEVEL 6-10 Oxycodone HCl (Roxicodone -) 5 mg PO Q4H PRN PRN Reason: PAIN LEVEL 1-5 Last Admin: 11/09/17 06:02 Dose: 5 mg Vital Signs Period Temp Pulse Resp BP Sys/Sequeira Pulse Ox Last 24 Hr 97.6 F-98.5 F 68-98 14-18 119-165/67-96 95-98 General: AAOx3, NAD, no confusion Respiratory: CTAB, lungs clear CV: RRR, no murmurs appreciated GI: soft, nontender to palpation Neuro: 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 No able to raise UE for FTN testing MS: no creptius or deformity appreciated to Right elbow Ext: Pulses intact, no rashes Imaging: CT head reviewed MRI brain ordered Plan: 82F with PMH of polio s/p Right hip fusion, Right ankle fusion, chronic Right LE veous statis ulcer, htn, afib (on Eliquis), admitted to [facility] for ERCP/ cholecystectomy on 11/04/17. Today, c/o new onset Right arm weakness/tingling along wqith Right elbow pain, no trauma reported by patient. James moreira was called, I spoke with hospitalist. Patient with possible CVA, CT head without acute changes, no bleed. Patient Not TPA candidate due to being on AC. Patient transferred to ICU, family at bedside, discussed with them. Ordered MRI brain to further evaluate for possible CVA. No longer permissive HTN, systolic can be allowed up to 150's for now, goal < 130/90 as outpatient She is moving RUE but with c/o pain as well as weakness. Physical therapy recommended On Eliquis, can continue, no bleed on CT head Statin recommended If CVA noted on imaging, then Echo and CD should be checked Remains in ICU, close monitoring, neuro checks Critical care time 35 mins
[2017-11-09] MEDS: SODIUM CHLORIDE 1,000 ML IV SCH (15:07)
--- NOTE | 2017-11-09 16:05 | PN ---
GI Progress Note Subjective: GI COVERAGE FOR DR STILL CTSP FOR RISING LFT'S DAY #2 POST-OP L.C. PT KNOWN TO DR STILL, ADMIT WITH A.C AND CBD STONES HAD ERCP WITH DR AVILA AND STONE EXTRACTION A FEW DAYS AGO THEN HAD L.C. ON 11/07..............NOW WITH RISE IN WBC AND LFT'S PT REPORTS EPIGAASTRIC PAIN ANOREXIA NO N/V/F/C/S ALSO REPORTS RIGHT ARM PAIN AT SITE OF LOVENOX INJECTIONS - Objective Vital Signs: Vital Signs Temperature 98.2 F 11/09/17 06:00 Pulse Rate 77 11/09/17 06:00 Respiratory Rate 19 11/09/17 06:00 Blood Pressure 150/85 11/09/17 06:00 O2 Sat by Pulse Oximetry (%) 93 L 11/08/17 23:35 Constitutional: Well Nourished, No Distress, Calm (+BS/ SOFT HOWEVER TENDER TO PALPATION IN EPIGASTRIUM AND RUQ NO M/R/G) Labs: CBC, BMP 11/09/17 05:25 18 05:25 INR, PTT INR 1.37 (0.82-1.09) H 18 13:06 Assessment/Plan 82F POD#2 S/P L.C. FOR A.C ALSO S/P ERCP FOR CBD STONES 6 DAYS AGO NOW WITH ANOREXIA/ EPIGASTRIC/RUQ PAIN TENDER ON EXAM RISING WBC TO 15.5 AND RISING AP 744 AND RISING BILIRUBIN ALL RAISING CONCERN OF BILE LEAK PT NEEDS A HIDA SCAN TO ASSESS FOR BILE LEAK POST-OP IF NEGATIVE, THEN WOULD OBTAIN A CT SCAN TO R/O A COLLECTION/ABSCESS IF THAT IS UNREVEALING, THEN A REPEAT ERCP WILLLIKELY BE NEEDED TO ASSESS FOR CBD OBSTRUCTION/STONE FRAGMENTS/SLUDGE CURRENTLY AFEBRILE AND VSS IF DETERIORATES CLINICALLY THEN WOULD START ABX AND OBTAIN HIDA STAT F/U LFT'S, CBC, COAGS DR BENNETT WILL F/U ON 11/10 D/W JOSEF ALEMAN MD
--- NOTE | 2017-11-09 16:11 | OP ---
DATE OF OPERATION: 11/07/2017 PREOPERATIVE DIAGNOSIS: Choledocholithiasis, chronic cholecystitis. POSTOPERATIVE DIAGNOSIS: Choledocholithiasis, chronic cholecystitis. PROCEDURE: Laparoscopic cholecystectomy. SURGEON: Kunal Chavarria MD [employer] SUPERVISOR: Kathi Alatorre PA-C ANESTHESIA: General. OPERATIVE FINDINGS: Cholelithiasis and chronic cholecystitis. The rest of the findings were unremarkable. PROCEDURE: The patient was placed on the operating table in the supine position. After induction of general anesthesia, the patient's abdomen was prepped with ChloraPrep and draped in sterile fashion. A timeout was taken and pneumoperitoneum established above the umbilicus using the Veress needle to an intraabdominal pressure of 15 mmHg. Additional 5-mm lateral ports and a subxiphoid 12-mm port were placed. Adherent omentum to the gallbladder was taken down using electrocautery and blunt dissection. The gallbladder was placed on cephalad and lateral traction, dissection begun in the hepatocystic triangle, where the peritoneum over the neck of the gallbladder was opened medially and laterally using electrocautery and blunt dissection. The cystic duct was identified coursing from the neck of the gallbladder distally to the common bile duct. It was dissected proximally and distally for length. The artery was similarly identified and dissected. Critical view of safety was taken and then the duct and artery were divided with Endo Reshma after placing 2 large clips distally and 2 large clips proximally. The gallbladder was then removed from the liver bed in a retrograde fashion using electrocautery. Prior to removal from the edge of the liver, hemostasis was checked for and noted to be good. The gallbladder was removed from the edge of the liver, placed in a specimen retrieval bag and brought out through the subxiphoid port. Pneumoperitoneum was reestablished and hemostasis verified. All ports were then removed under laparoscopic vision without evidence of bleeding from the port sites, and the pneumoperitoneum evacuated. All port sites were infiltrated with 0.5% Marcaine and the skin edges closed with 4-0 Monocryl in a subcuticular continuous fashion. Steri-Strips and band-aid dressings were placed and the procedure terminated at this point, and the patient aroused from general anesthesia and transferred to the post-anesthesia care unit in stable condition, awake and alert. Estimated blood loss 20 mL. Replacement was crystalloid. Drains: None. Specimen: Gallbladder and contents to Pathology. I, Kunal Chavarria, was physically present in the operating room from the time the patient was placed on the operating table until she was transferred to the post-anesthesia care unit in my accompaniment. MD KOSTA Prabhakar/[id number] MTDD
[2017-11-09] MEDS: ONDANSETRON 4 MG/2 ML VIAL IVPUSH PRN (20:31)
[2017-11-09] MEDS: ACETAMINOPHEN 1000 MG/100 ML VIAL (NON FORMULARY) IVPB PRN (21:56)
[2017-11-10 06:50] LABS: HEMATOCRIT 33.9 % (32.4-45.2); HEMOGLOBIN 11.2 GM/dL (10.7-15.3); MCH 27.8 pg (25.7-33.7); MEAN CELL VOLUME 84.3 fl (80-96); MEAN PLT VOLUME 10.1 fl (7.5-11.1); PLATELET COUNT 373 K/MM3 (134-434); RBC 4.02 M/mm3 (3.60-5.2); RDW 16.4 % (11.6-15.6)
[2017-11-10 06:51] LABS: AMYLASE 128 U/L (25-115); ANION GAP 8 (8-16); BLOOD UREA NITROGEN 8 mg/dL (7-18); CHLORIDE 103 mmol/L (98-107); CO2 28 mmol/L (21-32); CREATININE 0.2 mg/dL (0.55-1.02); GLUCOSE,RANDOM 99 mg/dL (74-106); LIPASE 449 U/L (73-393); POTASSIUM 3.7 mmol/L (3.5-5.1); SODIUM 139 mmol/L (136-145)
[2017-11-10 06:58] LABS: BILIRUBIN,DIRECT 4.8 mg/dL (0.0-0.2); BILIRUBIN,TOTAL 5.3 mg/dL (0.2-1.0); MAGNESIUM 2.2 mg/dL (1.8-2.4); TOT PROT 5.3 g/dl (6.4-8.2)
--- NOTE | 2017-11-10 08:11 | PN ---
Physical Exam: SUBJECTIVE: Patient seen and examined. Total bili 5.3, transaminases trending up HIDA scan today OBJECTIVE: Vital Signs Period Temp Pulse Resp BP Sys/Sequeira Pulse Ox Last 24 Hr 97.8 F-98.6 F 74-96 13-22 105-150/63-99 93-93 Laboratory Results - last 24 hr 11/09/17 11/10/17 11/10/17 11:56 05:05 05:05 WBC 16.0 H RBC 4.02 Hgb 11.2 Hct 33.9 MCV 84.3 MCH 27.8 MCHC 33.0 RDW 16.4 H Plt Count 373 MPV 10.1 Sodium 139 Potassium 3.7 Chloride 103 Carbon Dioxide 28 Anion Gap 8 BUN 8 Creatinine 0.2 L POC Glucometer [id number] Random Glucose 99 Calcium 8.0 L Magnesium Total Bilirubin Direct Bilirubin AST ALT Alkaline Phosphatase Total Protein Albumin Total Amylase 128 H Lipase 449 H 11/10/17 05:05 WBC RBC Hgb Hct MCV MCH MCHC RDW Plt Count MPV Sodium Potassium Chloride Carbon Dioxide Anion Gap BUN Creatinine POC Glucometer Random Glucose Calcium Magnesium 2.2 Total Bilirubin 5.3 H D Direct Bilirubin 4.8 H AST 83 H ALT 45 Alkaline Phosphatase 867 H Total Protein 5.3 L Albumin 2.0 L Total Amylase Lipase Active Medications Generic Name Dose Route Start Last Admin Trade Name Freq PRN Reason Stop Dose Admin Acetaminophen 1,000 mg 11/09/17 20:29 11/09/17 21:56 Ofirmev Injection - IVPB 1,000 mg Q6H PRN Administration PAIN OR FEVER Enoxaparin Sodium 60 mg 11/07/17 22:00 11/09/17 22:11 Lovenox - SQ 60 mg BID [facility] Administration Sodium Chloride 1,000 mls @ 42 mls/hr 11/08/17 10:45 11/09/17 15:07 Normal Saline - IV 42 mls/hr ASD[facility] Administration Methyl Salicylate 1 applic 11/07/17 22:00 11/09/17 22:11 Peter-Wolff - TP 1 applic BID [facility] Administration Metoprolol Succinate 50 mg 11/08/17 10:00 11/09/17 09:26 Toprol Xl - PO 50 mg DAILY [facility] Administration Nifedipine 90 mg 11/08/17 10:00 11/09/17 09:26 Procardia Xl - PO 90 mg DAILY [facility] Administration Ondansetron HCl 4 mg 11/07/17 12:57 11/09/17 20:31 Zofran Injection IVPUSH 4 mg Q6H PRN Administration NAUSEA AND/OR VOMITING ASSESSMENT/PLAN:
--- NOTE | 2017-11-10 08:19 | PN ---
Progress Note, Physician Chief Complaint: ID Complains of abd pains Off antibiotics Afebrile GI note seen - Current Medication List Current Medications: Active Medications Acetaminophen (Ofirmev Injection -) 1,000 mg IVPB Q6H PRN PRN Reason: PAIN OR FEVER Last Admin: 11/09/17 21:56 Dose: 1,000 mg Enoxaparin Sodium (Lovenox -) 60 mg SQ BID [facility] Last Admin: 11/09/17 22:11 Dose: 60 mg Sodium Chloride (Normal Saline -) 1,000 mls @ 42 mls/hr IV ASDIR [facility] Last Admin: 11/09/17 15:07 Dose: 42 mls/hr Methyl Salicylate (Peter-Wolff -) 1 applic TP BID [facility] Last Admin: 11/09/17 22:11 Dose: 1 applic Metoprolol Succinate (Toprol Xl -) 50 mg PO DAILY [facility] Last Admin: 11/09/17 09:26 Dose: 50 mg Nifedipine (Procardia Xl -) 90 mg PO DAILY [facility] Last Admin: 11/09/17 09:26 Dose: 90 mg Ondansetron HCl (Zofran Injection) 4 mg IVPUSH Q6H PRN PRN Reason: NAUSEA AND/OR VOMITING Last Admin: 11/09/17 20:31 Dose: 4 mg - Objective Vital Signs: Vital Signs Temperature 97.8 F 11/10/17 06:00 Pulse Rate 79 11/10/17 06:00 Respiratory Rate 16 11/10/17 06:00 Blood Pressure 107/69 11/10/17 06:00 O2 Sat by Pulse Oximetry (%) 93 L 11/09/17 22:00 HENT: Yes: WNL Neck: Yes: WNL, Supple Cardiovascular: Yes: Regular Rate and Rhythm, S1, S2 Respiratory: Yes: WNL, Regular, CTA Bilaterally Gastrointestinal: Yes: Soft, Tenderness Edema: No Labs: CBC, BMP 11/10/17 05:05 11/10/17 05:05 INR, PTT INR 1.37 (0.82-1.09) H 11/08/17 13:06 Assessment/Plan Microbiology 11/04/17 07:00 Nares - Mrsa Screen - Right MRSA Screen - Final NO MRSA ISOLATED 11/04/17 07:00 Nares - Left Nares MRSA Screen - Final NO MRSA ISOLATED 11/03/17 18:30 Stool Clostridium difficile Antigen (DIANA) - Final 11/03/17 18:30 Stool Clostridium difficile Toxin Assay - Final 11/03/17 16:41 Blood - Peripheral Venous Blood Culture - Final NO GROWTH AFTER 5 DAYS INCUBATION 11/03/17 16:41 Blood - Peripheral Venous Blood Culture - Final NO GROWTH AFTER 5 DAYS INCUBATION 11/03/17 13:36 Urine - Urine - Catheterized Urine Culture - Final Escherichia Coli Enterococcus Faecalis Laboratory Tests 11/10/17 11/10/17 11/10/17 05:05 05:05 05:05 WBC 16.0 H Hgb 11.2 Plt Count 373 BUN 8 Creatinine 0.2 L Total Bilirubin 5.3 H D AST 83 H ALT 45 Alkaline Phosphatase 867 H Assessment As per GI ? Bile leak post ERCP and lap manuel Plan HIDA and CT imaging [place] RODRIGUEZ
--- NOTE | 2017-11-10 08:58 | PN ---
Progress Note (short form) - Note Progress Note: Attending Surgeon POD #3 No c/o; NPO for HIDA VSS AF abdomen-soft; non tender; non distended; port sites c/d/i; o/w negative. LFT's and bili and WBC elevated IMP: s/p lap manuel after ERCP and stone extraction from CBD PLAN: For HIDA scan today; continue present tx. Kunal Chavarria MD FACS
--- NOTE | 2017-11-10 11:25 | PN ---
Teaching Attending Note Name of Resident: Tashi Feliz ATTENDING PHYSICIAN STATEMENT I saw and evaluated the patient. I reviewed the resident's note and discussed the case with the resident. I agree with the resident's findings and plan as documented. SUBJECTIVE: Pt seen and examined in the ICU. Still some nausea and abdominal pain. Went for HIDA scan this AM, reports pending. MRI brain without evidence of acute infarct but does show chronic microbleeds. OBJECTIVE: Last Vital Signs Temp Pulse Resp BP Pulse Ox 97.8 F 79 16 107/69 95 11/10/17 06:00 11/10/17 06:00 11/10/17 06:00 11/10/17 06:00 11/10/17 09:00 Intake & Output 11/07/17 11/08/17 11/09/17 11/10/17 23:59 23:59 23:59 23:59 Intake Total 3296 2761 1642 504 Output Total 20 1200 100 100 Balance 3276 1561 1542 404 Weight 60.01 kg 61.32 kg Gen: NAD at rest Heart: RRR Lung: decreased breath sounds at the bases Abd: soft, TTP, no rebound Ext: no edema CBC, BMP 11/10/17 05:05 11/10/17 05:05 Hepatic Panel Total Bilirubin 5.3 mg/dL (0.2-1.0) H D 11/10/17 05:05 Direct Bilirubin 4.8 mg/dL (0.0-0.2) H 11/10/17 05:05 AST 83 U/L (15-37) H 11/10/17 05:05 ALT 45 U/L (12-78) 11/10/17 05:05 Alkaline Phosphatase 867 U/L (45-117) H 11/10/17 05:05 Albumin 2.0 g/dl (3.4-5.0) L 11/10/17 05:05 Active Medications Acetaminophen (Ofirmev Injection -) 1,000 mg IVPB Q6H PRN PRN Reason: PAIN OR FEVER Last Admin: 11/09/17 21:56 Dose: 1,000 mg Enoxaparin Sodium (Lovenox -) 60 mg SQ BID [facility] Last Admin: 11/09/17 22:11 Dose: 60 mg Sodium Chloride (Normal Saline -) 1,000 mls @ 42 mls/hr IV ASDIR [facility] Last Admin: 11/09/17 15:07 Dose: 42 mls/hr Methyl Salicylate (Peter-Wolff -) 1 applic TP BID [facility] Last Admin: 11/09/17 22:11 Dose: 1 applic Metoprolol Succinate (Toprol Xl -) 50 mg PO DAILY [facility] Last Admin: 11/09/17 09:26 Dose: 50 mg Nifedipine (Procardia Xl -) 90 mg PO DAILY [facility] Last Admin: 11/09/17 09:26 Dose: 90 mg Ondansetron HCl (Zofran Injection) 4 mg IVPUSH Q6H PRN PRN Reason: NAUSEA AND/OR VOMITING Last Admin: 11/09/17 20:31 Dose: 4 mg ASSESSMENT AND PLAN: Choledocholithiasis with cholangitis s/p ERCP CBD stone removal on 11/05, lap manuel on 11/07 E.Coli UTI Atrial Fibrillation HTN - f/u HIDA scan - rate control - continue anticoagulation - monitoring off antibiotics - trend LFTs - can monitor on telemetry if HIDA scan without evidence of bile leak
[2017-11-10] MEDS: ONDANSETRON 4 MG/2 ML VIAL IVPUSH PRN (11:27)
--- NOTE | 2017-11-10 12:42 | PN ---
Progress Note (short form) - Note Progress Note: Attending Surgeon HIDA scan results d/w Dr. Vences; to get delayed imaging later today and any other studies deemed necessary after that. Kunal Chavarria MD FACS
--- NOTE | 2017-11-10 13:14 | PN ---
Progress Note (short form) - Note Progress Note: Neurology HPI: 82F with PMH of polio s/p Right hip fusion, Right ankle fusion, chronic Right LE veous statis ulcer, htn, afib (on Eliquis), admitted to [facility] for ERCP/ cholecystectomy on 11/04/17. Today, c/o new onset Right arm weakness/tingling along with Right elbow pain, no trauma reported by patient. Code lillie was called , concern for possible CVA, CT head without acute changes, no bleed. Patient Not TPA candidate due to being on AC and recent surgery. Patient transferred to ICU, family at bedside, discussed with them again today. Ordered MRI brain to further evaluate for possible CVA and imaging did not show CVA. Chronic changes noted. She is moving RUE but with c/o pain as well as weakness. Ortho consult recommended. Discussed with hospitalist as well. Active Medications Acetaminophen (Ofirmev Injection -) 1,000 mg IVPB Q6H PRN PRN Reason: PAIN OR FEVER Last Admin: 11/09/17 21:56 Dose: 1,000 mg Enoxaparin Sodium (Lovenox -) 60 mg SQ BID [facility] Last Admin: 11/09/17 22:11 Dose: 60 mg Sodium Chloride (Normal Saline -) 1,000 mls @ 42 mls/hr IV [facility] Last Admin: 11/09/17 15:07 Dose: 42 mls/hr Methyl Salicylate (Peter-Wolff -) 1 applic TP BID [facility] Last Admin: 11/09/17 22:11 Dose: 1 applic Metoprolol Succinate (Toprol Xl -) 50 mg PO DAILY [facility] Last Admin: 11/09/17 09:26 Dose: 50 mg Nifedipine (Procardia Xl -) 90 mg PO DAILY [facility] Last Admin: 11/09/17 09:26 Dose: 90 mg Vital Signs Temperature 98.0 F 11/10/17 10:00 Pulse Rate 100 H 11/10/17 10:00 Respiratory Rate 17 11/10/17 10:00 Blood Pressure 120/82 11/10/17 10:00 O2 Sat by Pulse Oximetry (%) 95 11/10/17 09:00 General: AAOx3, NAD, no confusion Respiratory: CTAB, lungs clear CV: RRR, no murmurs appreciated GI: soft, nontender to palpation Neuro: 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 No able to raise UE for FTN testing MS: no creptius or deformity appreciated to Right elbow Ext: Pulses intact, no rashes Imaging: CT head reviewed MRI brain reviewed Plan: 82F with PMH of polio s/p Right hip fusion, Right ankle fusion, chronic Right LE veous statis ulcer, htn, afib (on Eliquis), admitted to [facility] for ERCP/ cholecystectomy on 11/04/17. Today, c/o new onset Right arm weakness/tingling along wqith Right elbow pain, no trauma reported by patient. James moreira was called, I spoke with hospitalist. Patient with possible CVA, CT head without acute changes, no bleed. Patient Not TPA candidate due to being on AC. Patient transferred to ICU, family at bedside, discussed with them. MRI brain without acute CVA BP goal < 130/90 as outpatient She is moving RUE but with c/o pain as well as weakness. Consider ortho consult Physical therapy recommended On Eliquis, can continue, caution with further trauma Will not pursue further echo or carotid as MRI did not show new CVA Remains in ICU, close monitoring, neuro checks Discussed with family and hospitalist Critical care time 35 mins
--- NOTE | 2017-11-10 13:22 | PN ---
GI Progress Note Subjective: Dr. Cristina covering for Dr. Bejarano: No acute events No abdominal pain Had HIDA this morning, shows no tracer excretion - Objective Vital Signs: Vital Signs Temperature 98.0 F 11/10/17 10:00 Pulse Rate 100 H 11/10/17 10:00 Respiratory Rate 17 11/10/17 10:00 Blood Pressure 120/82 11/10/17 10:00 O2 Sat by Pulse Oximetry (%) 95 11/10/17 09:00 Constitutional: Calm Eyes: Yes: Sclera Icterus Cardiovascular: Yes: Pulse Irregular (regular rate). No: Murmur Gastrointestinal Inspection: Yes: Scars (healed trochar scars). No: Distention ...Auscultate: Yes: Normoactive Bowel Sounds ...Palpate: Yes: Tenderness (at trochar sites). No: Hepatomegaly, Splenomegaly Edema: No (No LE edema) Neurological: Yes: Alert, Oriented Labs: CBC, BMP 11/10/17 05:05 11/10/17 05:05 INR, PTT INR 1.37 (0.82-1.09) H 11/08/17 13:06 Hepatic Panel Total Bilirubin 5.3 mg/dL (0.2-1.0) H D 11/10/17 05:05 Direct Bilirubin 4.8 mg/dL (0.0-0.2) H 11/10/17 05:05 AST 83 U/L (15-37) H 11/10/17 05:05 ALT 45 U/L (12-78) 11/10/17 05:05 Alkaline Phosphatase 867 U/L (45-117) H 11/10/17 05:05 Albumin 2.0 g/dl (3.4-5.0) L 11/10/17 05:05 Problem List - Problems (1) Jaundice Assessment/Plan: Initially HIDA was going to be followed up with MRCP, however, given worsening cholestatic / obstructive liver chemistries pattern and HIDA findings, decision was made by Dr. Foster to proceed with Repeat ERCP to assess for CBD obstruction. he discussed this plan with Ms. Mccarty and her family who were present at bedside Await findings from ERCP AM labs ordered including coags Code(s): R17 - UNSPECIFIED JAUNDICE
--- NOTE | 2017-11-10 13:52 | PN ---
Physical Exam: SUBJECTIVE: Briefly pt came in with abdominal pain found to have cholelithiasis and was sent for an ERCP on 11/02 with subsequent cholecystectomy on 11/07. Pt was brought to ICU for evaluation of continued abdominal pain in the setting of a suspected bile leak or CBD obstruction. Pt to go for HIDA and possible ERCP pending results. Currently pt feels well, but is experiencing abdominal pain. Pt also reports she has chronic residual weakness in her R side due to having polio as a child and receiving some rehab. OBJECTIVE: Vital Signs Period Temp Pulse Resp BP Sys/Sequeira Pulse Ox Last 24 Hr 97.8 F-98.6 F 74-100 14-22 105-150/63-99 93-95 GENERAL: NAD, awake, alert, oriented x3, sitting in bed HEENT: NC/AT, sclera anicteric, EOMI, JERZY LUNGS: CTA bilaterally, no wheezes, no crackles, no accessory muscle use. HEART: RRR, S1, S2 without murmur ABDOMEN: Soft, ND, tenderness to palpation R>L, hypoactive bowel sounds, laparascopic incision sites C/D/I with steri-strips on top. EXTREMITIES: 2+ DP pulses, no edema. NEUROLOGICAL: R facial droop noted, Oriented x3. Slight chronic weakness in RUE compared with L. Sensation intact throughout. PSYCH: Normal mood, normal affect. SKIN: Warm, dry, normal turgor, no rashes or lesions noted, ABSENT jaundice Laboratory Results - last 24 hr 11/10/17 11/10/17 11/10/17 05:05 05:05 05:05 WBC 16.0 H RBC 4.02 Hgb 11.2 Hct 33.9 MCV 84.3 MCH 27.8 MCHC 33.0 RDW 16.4 H Plt Count 373 MPV 10.1 Sodium 139 Potassium 3.7 Chloride 103 Carbon Dioxide 28 Anion Gap 8 BUN 8 Creatinine 0.2 L Random Glucose 99 Calcium 8.0 L Magnesium 2.2 Total Bilirubin 5.3 H D Direct Bilirubin 4.8 H AST 83 H ALT 45 Alkaline Phosphatase 867 H Total Protein 5.3 L Albumin 2.0 L Total Amylase 128 H Lipase 449 H Active Medications Generic Name Dose Route Start Last Admin Trade Name Freq PRN Reason Stop Dose Admin Acetaminophen 1,000 mg 11/09/17 20:29 11/09/17 21:56 Ofirmev Injection - IVPB 1,000 mg Q6H PRN Administration PAIN OR FEVER Enoxaparin Sodium 60 mg 11/07/17 22:00 11/09/17 22:11 Lovenox - SQ 60 mg BID [facility] Administration Sodium Chloride 1,000 mls @ 42 mls/hr 11/08/17 10:45 11/09/17 15:07 Normal Saline - IV 42 mls/hr [facility] Administration Methyl Salicylate 1 applic 11/07/17 22:00 11/09/17 22:11 Peter-Wolff - TP 1 applic BID [facility] Administration Metoprolol Succinate 50 mg 11/08/17 10:00 11/09/17 09:26 Toprol Xl - PO 50 mg DAILY [facility] Administration Nifedipine 90 mg 11/08/17 10:00 11/09/17 09:26 Procardia Xl - PO 90 mg DAILY [facility] Administration ASSESSMENT/PLAN: Neuro: --Normal mentation currently --Monitor for hepatic encephalopathy signs --Prior history of polio infection with residual R-sided weakness --MRI Head reviewed: chronic changes no acute infarcts --Continue to monitor neurological status --Neurology on board (Dr. Duarte) Respiratory: --Clinically stable at this time Cardiovascular: History of Atrial fibrillation --Currently on Lovenox 60mg SQ BID --Toprol XL 50mg qDaily PO to continue --Procardia 90mg PO qDaily to continue GI: Jaundice: --Monitor for hepatic encephalopathy signs --Currently T.bili/D. Bili of 5.3/4.8 (trending up) --GI on board --HIDA scan for today --Rest pending results of HIDA --May need ERCP if obstruction seen with differential being retained stone vs. CBD injury S/P Cholecystectomy 11/07: --Surgery following (Dr. Chavarria) --Incisions C/D/I Renal: --No active problems at this time FEN: Fluids: NS@42cc/hr Electrolyte abnormalities: None currently Nutrition: NPO for possible procedure today PPX DVT - Lovenox last administered 11/09/17 Dispo: Pending HIDA results; continue monitoring as of now Discussed with Dr. Manuel Feliz, DO - IM PGY-1 Visit type - Emergency Visit Emergency Visit: No - New Patient This patient is new to me today: No - Critical Care Critical Care patient: Yes Total Critical Care Time (in minutes): 36 Critical Care Statement: The care of this patient involved high complexity decision making to prevent further life threatening deterioration of the patient 's condition and/or to evaluate & treat vital organ system(s) failure or risk of failure.
[2017-11-10] MEDS ORDERED: PROPOFOL 20 ML ONE (14:03)
--- NOTE | 2017-11-10 14:11 | PN ---
Progress Note (short form) - Note Progress Note: GI NOte: I discussed the biliary situation with Sanjana Lenz and her family. I explained that the Hida reveals a high grade CBD obstruction. I explained that this could be stones or traumatized CBD. I explained the need for an emergent ERCP to try to decompress the duct. If unsuccessful I have discussed the potential need for a PTC. I have also communicated with Dr. Vences who tells me she will need imaging to confirm intrahepatic ductal dilation. Arranging to do ERCP CLAIR. Problem List - Problems (1) Choledocholithiasis Code(s): K80.50 - CALCULUS OF BILE DUCT W/O CHOLANGITIS OR CHOLECYST W/O OBST (2) Jaundice Code(s): R17 - UNSPECIFIED JAUNDICE (3) Pancreatic cyst Code(s): K86.2 - CYST OF PANCREAS
--- NOTE | 2017-11-10 16:14 | PN ---
Physical Exam: SUBJECTIVE: Patient seen and examined after ERCP. Asking for water. Denies pain. Voices no complaints other than thirst. OBJECTIVE: Vital Signs Period Temp Pulse Resp BP Sys/Sequeira Pulse Ox Last 24 Hr 97.8 F-99.2 F 74-100 14-20 105-150/63-99 93-97 GENERAL: The patient is awake, alert, and fully oriented. SKIN: Jaundiced. LUNGS: Breath sounds equal, clear to auscultation bilaterally, no wheezes, no crackles, no accessory muscle use. HEART: Regular rate and rhythm, S1, S2 ABDOMEN: Trochanter port site bandages c/d/i; + bowel sounds UPPER EXTREMITIES: RIGHT: No joint swelling, no erythema, no warmth, 2+ radial pulses, no tenderness; unable to raise arm off bed LOWER EXTREMITIES: 2+ pulses, warm, well-perfused, no edema. NEUROLOGICAL: Cranial nerves II through XII grossly intact. Normal speech, gait not observed. Laboratory Results - last 24 hr 11/10/17 11/10/17 11/10/17 05:05 05:05 05:05 WBC 16.0 H RBC 4.02 Hgb 11.2 Hct 33.9 MCV 84.3 MCH 27.8 MCHC 33.0 RDW 16.4 H Plt Count 373 MPV 10.1 Sodium 139 Potassium 3.7 Chloride 103 Carbon Dioxide 28 Anion Gap 8 BUN 8 Creatinine 0.2 L Random Glucose 99 Calcium 8.0 L Magnesium 2.2 Total Bilirubin 5.3 H D Direct Bilirubin 4.8 H AST 83 H ALT 45 Alkaline Phosphatase 867 H Total Protein 5.3 L Albumin 2.0 L Total Amylase 128 H Lipase 449 H Active Medications Generic Name Dose Route Start Last Admin Trade Name Freq PRN Reason Stop Dose Admin Acetaminophen 1,000 mg 11/09/17 20:29 11/09/17 21:56 Ofirmev Injection - IVPB 1,000 mg Q6H PRN Administration PAIN OR FEVER Enoxaparin Sodium 60 mg 11/07/17 22:00 11/09/17 22:11 Lovenox - SQ 60 mg BID [facility] Administration Sodium Chloride 1,000 mls @ 42 mls/hr 11/08/17 10:45 11/09/17 15:07 Normal Saline - IV 42 mls/hr [facility] Administration Methyl Salicylate 1 applic 11/07/17 22:00 11/09/17 22:11 Peter-Wolff - TP 1 applic BID [facility] Administration Metoprolol Succinate 50 mg 11/08/17 10:00 11/09/17 09:26 Toprol Xl - PO 50 mg DAILY [facility] Administration Nifedipine 90 mg 11/08/17 10:00 11/09/17 09:26 Procardia Xl - PO 90 mg DAILY [facility] Administration ASSESSMENT/PLAN 82 year-old female with PMH signficant for HTN, afib on Eliquis, polio s/p right hip and right ankle fusions, and chronic RLE venous stasis ulcer. Admitted to [place] with painless jaundice, decreased appetite and nausea; transferred to [facility] for ERCP and cholecystectomy. 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 --developed on morning of POD #1; patient described alternatively as as numbness, weakness, heaviness, pain to forearm, elbow, shoulder --Code Russell was called; CT head and MRI brain negative for acute findings, US carotids unremarkable --11/10 Echo: LV normal; RV normal; LAE; mild to moderate MR; moderate TR --ortho consult: likely arthritis of right shoulder, xray pending Atrial fibrillation --rate well-controlled, continue Toprol XL --anti-coagulation stopped due to intraductal bleeding Hypertension --continue Toprol XL E coli UTI --treated with ceftriaxone x 5 days FEN Fluids: D5NS@83mL/hr Electrolytes: replete as indicated Nutrition: NPO DVT prophylaxis: SCDs Physical therapy: h/o polio, uses walker at home Dispo: continues to require ICU level care. Visit type - Emergency Visit Emergency Visit: Yes ED Registration Date: 11/03/17 Care time: The patient presented to the Emergency Department on the above date and was hospitalized for further evaluation of their emergent condition. - New Patient This patient is new to me today: No - Critical Care Critical Care patient: Yes Total Critical Care Time (in minutes): 60 Critical Care Statement: The care of this patient involved high complexity decision making to prevent further life threatening deterioration of the patient 's condition and/or to evaluate & treat vital organ system(s) failure or risk of failure.
[2017-11-10] MEDS ORDERED: PHYTONADIONE 10 MG/1 ML AMP IVPB ONE (16:45)
--- NOTE | 2017-11-10 16:45 | PN ---
Progress Note (short form) - Note Progress Note: GI Procedure NOte: Please see EGD report ( ERCP aborted). I suspect that Pam Lenz has intraductal bleeding from erosions caused by extraction of her large stones and likely from her sphincterotomy site. Extraction of the clot could lead to torrential hemorrhage from both. Although we may be able to control the sphincterotomy site hemorrhage we would not be access to access the intraductal bleeding site. Will therefore instead correct her coagulation profile with FFP and Vitamin K and pursue CTA. The bleeding will hopefully stop with this and the bile duct should expel the clots. At present suspect bile duct obstruction due to clots from hematobilia. I have discussed these issues with Pam Lenz and her family as well as with Dr Chavarria, Dr. Vences and Dr Cristina. Problem List - Problems (1) Choledocholithiasis Code(s): K80.50 - CALCULUS OF BILE DUCT W/O CHOLANGITIS OR CHOLECYST W/O OBST (2) Jaundice Code(s): R17 - UNSPECIFIED JAUNDICE (3) Pancreatic cyst Code(s): K86.2 - CYST OF PANCREAS
[2017-11-10] MEDS ORDERED: PANTOPRAZOLE SODIUM 80 MG in SODIUM CHLORIDE 100 ML IVPB SCH (17:00)
[2017-11-10] MEDS: SODIUM CHLORIDE 1,000 ML IV SCH (17:05)
[2017-11-10 17:09] LABS: HEMATOCRIT 33.7 % (32.4-45.2); LYMPH % 10.6 % (8-40); MCH 27.4 pg (25.7-33.7); MCHC 32.6 g/dl (32.0-36.0); MEAN CELL VOLUME 84.1 fl (80-96); MEAN PLT VOLUME 9.7 fl (7.5-11.1); MONO % 3.9 % (3.8-10.2); NEUT % 85.5 % (42.8-82.8); PLATELET COUNT 389 K/MM3 (134-434); RBC 4.01 M/mm3 (3.60-5.2); RDW 16.5 % (11.6-15.6); WHITE BLOOD COUNT 18.7 K/mm3 (4.0-10.0)
[2017-11-10] MEDS: NIFEdipine E.R. 90 MG TABLET (FP) PO SCH (17:12)
[2017-11-10 17:25] LABS: INR 1.35 (0.82-1.09); PROTHROMBIN TIME (PATIENT) 15.2 SEC (9.98-11.88)
[2017-11-10 17:38] LABS: ANION GAP 8 (8-16); BLOOD UREA NITROGEN 9 mg/dL (7-18); CALCIUM 7.7 mg/dL (8.5-10.1); CHLORIDE 105 mmol/L (98-107); CO2 28 mmol/L (21-32); CREATININE 0.3 mg/dL (0.55-1.02); GLUCOSE,RANDOM 105 mg/dL (74-106); POTASSIUM 3.7 mmol/L (3.5-5.1); SODIUM 141 mmol/L (136-145)
--- NOTE | 2017-11-10 17:49 | PN ---
Progress Note (short form) - Note Progress Note: Consult seen and dictated. Most likely dx is shoulder arthritis. X-ray ordered.
[2017-11-10] MEDS: METHYL SALICYLATE/MENTHOL OINT 30 GM TUBE TP SCH (18:40)
--- NOTE | 2017-11-10 18:48 | CONS ---
DATE OF CONSULTATION: 11/10/2017 CHIEF COMPLAINT: Right upper extremity pain. HISTORY OF PRESENT ILLNESS: This is an 82-year-old woman who has been undergoing abdominal procedures, who had started to develop right upper extremity pain. The patient states the pain has been getting better. Initially, it was felt more in the forearm, but she has some pain more so in the shoulder. She denies any previous shoulder pain but does state that she has arthritis "all over." She denies any radiating pain, numbness or tingling at this time. She states the pain is worse with trying to lift the arm and improved at rest. PAST MEDICAL HISTORY: Significant for polio, lower extremity venous stasis ulcer, hypertension, atrial fibrillation; on this visit, significant for jaundice. PAST SURGICAL HISTORY: Significant for as well as the abdominal procedures performed during this admission. She has also had right hip and ankle fusions as well as multiple tendon transfers secondary to her polio history. SOCIAL HISTORY: Denies any drugs or tobacco, rarely has wine. MEDICATIONS: Reviewed as in charts. PHYSICAL EXAMINATION: General: This is an elderly female in no acute distress. She is alert and oriented x3. She is seen lying in the hospital bed. Right Upper Extremity: Demonstrates ecchymosis about some old IV sites. There is no swelling. There is no gross deformity. She is tender a little bit about the anterior aspect of the shoulder, and the shoulder joint is somewhat prominent. Passive range of motion is to about 90 degrees of flexion. However, active is only to about 20. Elbow range of motion is from 0 degrees of extension, flexing up to 100 degrees before she has discomfort. There is no pain with range of motion of the wrist. The forearm is slightly tender volarly where there is some ecchymosis. However, the remainder is minimally tender. Thumbs up, finger abduction, and okay sign are intact but diffusely with some weakness. ASSESSMENT: Right upper extremity pain. PLAN: I reviewed today's findings with the patient as well as her family. My suspicion is that she has a significant degree of shoulder osteoarthritis which is causing her current shoulder pain. I have ordered an x-ray for this. If this is the case, some physical therapy would be beneficial. As far as her forearm and elbow pain, this may be secondary to her old blown IVs. There is no evidence for compartment syndrome and there is minimal swelling at this time as well as an improving clinical condition and so I see no need for intervention. No other treatment is needed at this time. ARNALDO ZHAO M.D. [id number]
[2017-11-10] MEDS: PANTOPRAZOLE SODIUM 160 MG in DEXTROSE 5%-WATER - 290 ML IVPB SCH (21:00)
[2017-11-10] MEDS: DEXTROSE 5%-NORMAL SALINE 1,000 ML IV SCH (21:02)
[2017-11-11] MEDS: METHYL SALICYLATE/MENTHOL OINT 30 GM TUBE TP SCH ×3 (00:44→21:49)
[2017-11-11] MEDS: ACETAMINOPHEN 1000 MG/100 ML VIAL (NON FORMULARY) IVPB PRN (00:54)
[2017-11-11 02:12] LABS: HEMATOCRIT 25.5 % (32.4-45.2); HEMOGLOBIN 8.4 GM/dL (10.7-15.3); MCH 27.5 pg (25.7-33.7); MEAN CELL VOLUME 83.5 fl (80-96); MEAN PLT VOLUME 9.3 fl (7.5-11.1); PLATELET COUNT 308 K/MM3 (134-434); RBC 3.05 M/mm3 (3.60-5.2); WHITE BLOOD COUNT 14.6 K/mm3 (4.0-10.0)
[2017-11-11 06:48] LABS: ALBUMIN 2.2 g/dl (3.4-5.0); ANION GAP 8 (8-16); BILIRUBIN,TOTAL 5.9 mg/dL (0.2-1.0); BLOOD UREA NITROGEN 10 mg/dL (7-18); CALCIUM 7.5 mg/dL (8.5-10.1); CHLORIDE 106 mmol/L (98-107); CO2 28 mmol/L (21-32); CREATININE 0.3 mg/dL (0.55-1.02); GLUCOSE,RANDOM 93 mg/dL (74-106); MAGNESIUM 2.1 mg/dL (1.8-2.4); POTASSIUM 3.2 mmol/L (3.5-5.1); SGOT/AST 92 U/L (15-37); SGPT/ALT 50 U/L (12-78); SODIUM 142 mmol/L (136-145); TOT PROT 5.2 g/dl (6.4-8.2)
[2017-11-11 06:49] LABS: ALK PHOS 830 U/L (45-117)
[2017-11-11 07:00] LABS: INR 1.12 (0.82-1.09); PROTHROMBIN TIME (PATIENT) 12.7 SEC (9.98-11.88)
[2017-11-11 07:58] LABS: BASO % 0.2 % (0-2.0); EOS % 0.3 % (0-4.5); HEMATOCRIT 29.1 % (32.4-45.2); HEMOGLOBIN 9.5 GM/dL (10.7-15.3); LYMPH % 18.1 % (8-40); MCH 27.3 pg (25.7-33.7); MCHC 32.6 g/dl (32.0-36.0); MEAN CELL VOLUME 83.7 fl (80-96); MEAN PLT VOLUME 9.7 fl (7.5-11.1); MONO % 7.1 % (3.8-10.2); NEUT % 74.3 % (42.8-82.8); PLATELET COUNT 335 K/MM3 (134-434); RBC 3.47 M/mm3 (3.60-5.2); RDW 16.2 % (11.6-15.6); WHITE BLOOD COUNT 16.1 K/mm3 (4.0-10.0)
[2017-11-11] MEDS ORDERED: METOCLOPRAMIDE HCL INJECTION 10 MG/2 ML VIAL IVPUSH PRN (08:00)
--- NOTE | 2017-11-11 08:04 | PN ---
Progress Note, Physician Chief Complaint: Pt day #1 s/p ERCP - Current Medication List Current Medications: Active Medications Acetaminophen (Ofirmev Injection -) 1,000 mg IVPB Q6H PRN PRN Reason: PAIN OR FEVER Last Admin: 11/11/17 00:54 Dose: 1,000 mg Furosemide (Lasix Injection -) 40 mg IVPUSH ONCE ONE Stop: 11/11/17 07:54 Sodium Chloride (Normal Saline -) 1,000 mls @ 42 mls/hr IV ASDIR [facility] Last Admin: 11/10/17 17:05 Dose: 42 mls/hr Pantoprazole Sodium 160 mg/ (Dextrose) 290 mls @ 14.5 mls/hr IVPB Q20H [facility] Last Admin: 11/10/17 21:00 Dose: 14.5 mls/hr Dextrose/Sodium Chloride (D5-Ns -) 1,000 mls @ 83 mls/hr IV ASDIR [facility] Last Admin: 11/10/17 21:02 Dose: 83 mls/hr Methyl Salicylate (Peter-Wolff -) 1 applic TP BID [facility] Last Admin: 11/11/17 00:44 Dose: 1 applic Metoclopramide HCl (Reglan Injection -) 10 mg IVPUSH Q6H PRN PRN Reason: NAUSEA AND/OR VOMITING Metoprolol Succinate (Toprol Xl -) 50 mg PO DAILY [facility] Last Admin: 11/10/17 18:39 Dose: 50 mg Nifedipine (Procardia Xl -) 90 mg PO DAILY [facility] Last Admin: 11/10/17 17:12 Dose: Not Given Potassium Chloride (K-Dur -) 40 meq PO Q6H [facility] Stop: 11/11/17 13:46 - Objective Vital Signs: Vital Signs Temperature 98 F 11/11/17 06:00 Pulse Rate 80 11/11/17 06:00 Respiratory Rate 16 11/11/17 06:00 Blood Pressure 132/83 11/11/17 06:00 O2 Sat by Pulse Oximetry (%) 97 11/10/17 22:00 Constitutional: Yes: Well Nourished, No Distress, Calm Labs: CBC, BMP 11/11/17 05:12 INR, PTT INR 1.12 (0.82-1.09) 11/11/17 05:12 Assessment/Plan Pt doing well today, resting comfortably. No apparent anesthetic issues/ complications. She has been receiving FFP/vitK to correct coagulation profile in hopes of minimizing possible bleed from stone extraction. Continue current care
--- NOTE | 2017-11-11 08:56 | PN ---
Progress Note (short form) - Note Progress Note: patient is resting comfortably s/p lap choly on 11/07 no fevers no abdominal pain remains jaundiced with elevated alk phos d/w Dr Avery- ERCP planned for today- she has retained stone she has an elevated WBC she is alert Vital Signs Period Temp Pulse Resp BP Sys/Sequeira Pulse Ox Last 24 Hr 97.6 F-99.2 F 63-100 14-22 107-148/62-98 95-97 jaundiced cor-rrr lungs clear abd soft,nt ext no edema CBC, BMP 11/11/17 05:12 11/11/17 05:12 Laboratory Tests 11/11/17 05:12 Total Bilirubin 5.9 H Direct Bilirubin 5.0 H AST 92 H ALT 50 Alkaline Phosphatase 830 H a/p d/w Dr Avery retained stone for ERCP today will resume zosyn to cover for biliary sepsis
[2017-11-11] MEDS ORDERED: FUROSEMIDE 40 MG/4 ML INJECTABLE VIAL IVPUSH ONE (09:00)
[2017-11-11] MEDS ORDERED: METOCLOPRAMIDE HCL INJECTION 10 MG/2 ML VIAL IVPUSH ONE (09:00)
[2017-11-11] MEDS ORDERED: PT OWN MED DRAWER 7, Y5N ONE ×2 (09:06→18:21)
[2017-11-11] MEDS: POTASSIUM CHLORIDE TABS 20 MEQ TABLET.ER (FP) PO SCH ×2 (09:11→16:57)
[2017-11-11] MEDS ORDERED: PIPERACILLIN/TAZOB 3.375 GM/50 ML PRE-DOCKED IVPB SCH (09:15)
--- NOTE | 2017-11-11 09:53 | PN ---
Progress Note (short form) - Note Progress Note: Pt lying in bed Minimal arm pain today RUE exam unchanged minimal active elevation comfortable passive ROM distal neurovascular exam shows diffuse weakness without focal deficit sensation intact to LT 2+ rad pulse shoulder x-ray: severe chronic rotator cuff arthropathy A/P: R shoulder arthritis flare -advised patient I think her pain was caused by an arthritis flare likely secondary to intra-op positioning -can work on PT for shoulder/UE strength -f/u as outpatient if needed
--- NOTE | 2017-11-11 09:59 | PN ---
Progress Note (short form) - Note Progress Note: Neurology HPI: 82F with PMH of polio s/p Right hip fusion, Right ankle fusion, chronic Right LE veous statis ulcer, htn, afib (on Eliquis), admitted to [facility] for ERCP/ cholecystectomy on 11/04/17. Today, c/o new onset Right arm weakness/tingling along with Right elbow pain, no trauma reported by patient. Code lillie was called , concern for possible CVA, CT head without acute changes, no bleed. Patient Not TPA candidate due to being on AC and recent surgery. Patient transferred to ICU, family at bedside, discussed with them again today. Ordered MRI brain to further evaluate for possible CVA and imaging did not show CVA. Chronic changes noted. She is moving RUE but with c/o pain as well as weakness. Ortho consult recommended. This was discussed with family. Awaiting consult. Active Medications Acetaminophen (Ofirmev Injection -) 1,000 mg IVPB Q6H PRN PRN Reason: PAIN OR FEVER Last Admin: 11/09/17 21:56 Dose: 1,000 mg Enoxaparin Sodium (Lovenox -) 60 mg SQ BID [facility] Last Admin: 11/09/17 22:11 Dose: 60 mg Sodium Chloride (Normal Saline -) 1,000 mls @ 42 mls/hr IV ASDIR [facility] Last Admin: 11/09/17 15:07 Dose: 42 mls/hr Methyl Salicylate (Peter-Wolff -) 1 applic TP BID [facility] Last Admin: 11/09/17 22:11 Dose: 1 applic Metoprolol Succinate (Toprol Xl -) 50 mg PO DAILY [facility] Last Admin: 11/09/17 09:26 Dose: 50 mg Nifedipine (Procardia Xl -) 90 mg PO DAILY [facility] Last Admin: 11/09/17 09:26 Dose: 90 mg Vital Signs Temperature 98.0 F 11/10/17 10:00 Pulse Rate 100 H 11/10/17 10:00 Respiratory Rate 17 11/10/17 10:00 Blood Pressure 120/82 11/10/17 10:00 O2 Sat by Pulse Oximetry (%) 95 11/10/17 09:00 General: AAOx3, NAD, no confusion Respiratory: CTAB, lungs clear CV: RRR, no murmurs appreciated GI: soft, nontender to palpation Neuro: 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 No able to raise UE for FTN testing MS: no creptius or deformity appreciated to Right elbow Ext: Pulses intact, no rashes Imaging: CT head reviewed MRI brain reviewed Plan: 82F with PMH of polio s/p Right hip fusion, Right ankle fusion, chronic Right LE veous statis ulcer, htn, afib (on Eliquis), admitted to [facility] for ERCP/ cholecystectomy on 11/04/17. Today, c/o new onset Right arm weakness/tingling along wqith Right elbow pain, no trauma reported by patient. James moreira was called, I spoke with hospitalist. Patient with possible CVA, CT head without acute changes, no bleed. Patient Not TPA candidate due to being on AC. Patient transferred to ICU. MRI brain without acute CVA BP goal < 130/90 as outpatient She is moving RUE but with c/o pain as well as weakness. Consider ortho consult as MRI did not demonstrate CVA Physical therapy recommended On Eliquis, can continue, caution with further trauma Will not pursue further echo or carotid as MRI did not show new CVA Remains in ICU, close monitoring, neuro checks Critical care time 35 mins
[2017-11-11] MEDS ORDERED: PIPERACIL/TAZOB 3.375 GM 3.375 GM/50 ML PREMIX IVPB SCH (10:00)
[2017-11-11] MEDS ORDERED: PIPERACILLIN/TAZOB 4.5 GM/100 ML PREMIX BAG IVPB SCH (10:00)
--- NOTE | 2017-11-11 10:10 | PN ---
GI Progress Note Subjective: CTA reviewed by Dr. Bella and discussed with Dr. Foster: suspected intraluminal stone in distal CBD Ms. Mccarty denies any abdominal pain - Objective Vital Signs: Vital Signs Temperature 97.8 F 11/11/17 09:39 Pulse Rate 78 11/11/17 09:39 Respiratory Rate 18 11/11/17 09:39 Blood Pressure 114/64 11/11/17 09:39 O2 Sat by Pulse Oximetry (%) 98 11/11/17 08:00 Constitutional: Calm Eyes: Yes: Sclera Icterus Cardiovascular: Yes: Regular Rate and Rhythm Respiratory: Yes: CTA Bilaterally Gastrointestinal Inspection: No: Distention ...Auscultate: Yes: Normoactive Bowel Sounds ...Palpate: No: Tenderness ...Percussion: No: Tympanitic Edema: No (No LE edema) Neurological: Yes: Alert Labs: CBC, BMP 11/11/17 05:12 11/11/17 05:12 INR, PTT INR 1.12 (0.82-1.09) 11/11/17 05:12 Hepatic Panel Total Bilirubin 5.9 mg/dL (0.2-1.0) H 11/11/17 05:12 Direct Bilirubin 5.0 mg/dL (0.0-0.2) H 11/11/17 05:12 AST 92 U/L (15-37) H 11/11/17 05:12 ALT 50 U/L (12-78) 11/11/17 05:12 Alkaline Phosphatase 830 U/L (45-117) H 11/11/17 05:12 Albumin 2.2 g/dl (3.4-5.0) L 11/11/17 05:12 Problem List - Problems (1) Jaundice Assessment/Plan: Discussed case w/ Dr. Foster and Dr. Avery: For repeat ERCP today to assess if clot migrated and for attempt at reevaluation of bild duct . stone extraction. Discussed case w/ Ms. Mccarty. Discussed potential risks of procedure like but not limited to bleeding, perforation requiring surgery to repair, infection, sedation medication effects all of which could be potentially life threatening. She has agreed to the procedure. Continue IV Abx Code(s): R17 - UNSPECIFIED JAUNDICE
[2017-11-11] MEDS ORDERED: ROCURONIUM BROMIDE 50 MG/5 ML VIAL ONE (10:23)
[2017-11-11] MEDS: PIPERACILLIN/TAZOB 4.5 GM 4.5 GM in DEXTROSE 5%-WATER - 100 ML IVPB SCH ×2 (12:16→18:30)
--- NOTE | 2017-11-11 12:19 | PN ---
Teaching Attending Note Name of Resident: Tashi Feliz ATTENDING PHYSICIAN STATEMENT I saw and evaluated the patient. I reviewed the resident's note and discussed the case with the resident. I agree with the resident's findings and plan as documented. SUBJECTIVE: Pt seen and examined in the ICU. s/p ERCP, full report pending. Denies abdominal pain, nausea or vomiting. No fevers or chills. OBJECTIVE: Last Vital Signs Temp Pulse Resp BP Pulse Ox 97.8 F 67 15 132/88 97 11/11/17 09:39 11/11/17 12:05 11/11/17 12:05 11/11/17 12:05 11/11/17 12:05 Intake & Output 11/08/17 11/09/17 11/10/17 11/11/17 23:59 23:59 23:59 23:59 Intake Total 2761 1642 2575 789 Output Total 1200 100 100 Balance 1561 1542 2475 789 Weight 60.01 kg 61.32 kg 61.774 kg Gen: NAD, icteric Heart: RRR Lung: decreased breath sounds at the bases Abd: soft, nontender Ext: no edema CBC, BMP 11/11/17 05:12 11/11/17 05:12 Active Medications Acetaminophen (Ofirmev Injection -) 1,000 mg IVPB Q6H PRN PRN Reason: PAIN OR FEVER Last Admin: 11/11/17 00:54 Dose: 1,000 mg Pantoprazole Sodium 160 mg/ (Dextrose) 290 mls @ 14.5 mls/hr IVPB Q20H [facility] Last Admin: 11/10/17 21:00 Dose: 14.5 mls/hr Dextrose/Sodium Chloride (D5-Ns -) 1,000 mls @ 83 mls/hr IV ASDIR [facility] Last Admin: 11/10/17 21:02 Dose: 83 mls/hr Piperacillin Sod/Tazobactam (Sod 4.5 gm/ Dextrose) 100 mls @ 200 mls/hr IVPB Q8H-IV [facility] Methyl Salicylate (Peter-Wolff -) 1 applic TP BID [facility] Last Admin: 11/11/17 00:44 Dose: 1 applic Metoprolol Succinate (Toprol Xl -) 50 mg PO DAILY [facility] Last Admin: 11/11/17 09:12 Dose: 50 mg Nifedipine (Procardia Xl -) 90 mg PO DAILY [facility] Last Admin: 11/10/17 17:12 Dose: Not Given Potassium Chloride (K-Dur -) 40 meq PO Q6H [facility] Stop: 11/11/17 15:01 Last Admin: 11/11/17 09:11 Dose: 40 meq ASSESSMENT AND PLAN: Choledocholithiasis with cholangitis s/p ERCP CBD stone removal on 11/05, lap manuel on 11/07 E.Coli UTI Atrial Fibrillation HTN - continue antibiotics - f/u cultures - f/u ERCP report - GI, surgery f/u - rate control - continue anticoagulation if no further invasive procedures planned - trend LFTs - DVT prophylaxis - continue ICU monitoring
--- NOTE | 2017-11-11 12:31 | PN ---
Progress Note (short form) - Note Progress Note: Attending Surgeon POD #4 No c/o VSS AF abdomen-soft; flat and non tender; port sites unremarkable labs noted Attempted ERCP yesterday and today reviewed w/ Dr. Foster and Dr. Avery IMP: post op biliary obstruction PLAN To be xferred to [facility] for further evaluation and/or intervention as necessary; d/w the patients family. Kunal Chavarria MD FACS
[2017-11-11] MEDS: DEXTROSE 5%-NORMAL SALINE 1,000 ML IV SCH ×2 (12:33→21:48)
--- NOTE | 2017-11-11 12:48 | DS ---
Physical Exam: SUBJECTIVE: Patient seen and examined. Made aware of ERCP results today. Consents to transfer. Discussed with daughter and son. OBJECTIVE: Vital Signs Period Temp Pulse Resp BP Sys/Sequeira Pulse Ox Last 24 Hr 97.6 F-99.2 F 63-94 13-22 107-148/62-98 96-98 PHYSICAL EXAM GENERAL: The patient is awake, alert, and fully oriented. SKIN: Jaundiced. LUNGS: Breath sounds equal, clear to auscultation bilaterally, no wheezes, no crackles, no accessory muscle use. HEART: Regular rate and rhythm, S1, S2 ABDOMEN: Trochanter port site bandages c/d/i; + bowel sounds UPPER EXTREMITIES: RIGHT: No joint swelling, no erythema, no warmth, 2+ radial pulses, no tenderness; unable to raise arm off bed LOWER EXTREMITIES: 2+ pulses, warm, well-perfused, no edema. Chronic, healed ulcer left lower extremity NEUROLOGICAL: Cranial nerves II through XII grossly intact. Normal speech, gait not observed. LABS Laboratory Results - last 24 hr 11/10/17 11/10/17 11/10/17 16:30 16:30 16:30 WBC 18.7 H RBC 4.01 Hgb 11.0 Hct 33.7 MCV 84.1 MCH 27.4 MCHC 32.6 RDW 16.5 H Plt Count 389 MPV 9.7 Neutrophils % 85.5 H D Lymphocytes % 10.6 D Monocytes % 3.9 Eosinophils % 0.0 D Basophils % 0.0 Retic Count PT with INR 15.20 H INR 1.35 H Sodium 141 Potassium 3.7 Chloride 105 Carbon Dioxide 28 Anion Gap 8 BUN 9 Creatinine 0.3 L Creat Clearance w eGFR Random Glucose 105 Calcium 7.7 L Phosphorus Magnesium Total Bilirubin Direct Bilirubin AST ALT Alkaline Phosphatase C-Reactive Protein 6.3 H Total Protein Albumin Blood Type Antibody Screen Crossmatch 11/10/17 11/11/17 11/11/17 16:30 02:00 05:12 WBC 14.6 H 16.1 H RBC 3.05 L D 3.47 L Hgb 8.4 L D 9.5 L D Hct 25.5 L D 29.1 L MCV 83.5 83.7 MCH 27.5 27.3 MCHC 33.0 32.6 RDW 16.0 H 16.2 H Plt Count 308 D 335 MPV 9.3 9.7 Neutrophils % 74.3 Lymphocytes % 18.1 D Monocytes % 7.1 D Eosinophils % 0.3 D Basophils % 0.2 D Retic Count PT with INR INR Sodium Potassium Chloride Carbon Dioxide Anion Gap BUN Creatinine Creat Clearance w eGFR Random Glucose Calcium Phosphorus Magnesium Total Bilirubin Direct Bilirubin AST ALT Alkaline Phosphatase C-Reactive Protein Total Protein Albumin Blood Type O POSITIVE Antibody Screen Negative Crossmatch See Detail 11/11/17 11/11/17 11/11/17 05:12 05:12 05:12 WBC RBC Hgb Hct MCV MCH MCHC RDW Plt Count MPV Neutrophils % Lymphocytes % Monocytes % Eosinophils % Basophils % Retic Count PT with INR 12.70 H INR 1.12 Sodium 142 Potassium 3.2 L Chloride 106 Carbon Dioxide 28 Anion Gap 8 BUN 10 Creatinine 0.3 L Creat Clearance w eGFR > 60 Random Glucose 93 Calcium 7.5 L Phosphorus 2.0 L Magnesium 2.1 Total Bilirubin 5.9 H Direct Bilirubin 5.0 H AST 92 H ALT 50 Alkaline Phosphatase 830 H C-Reactive Protein 3.6 H Total Protein 5.2 L Albumin 2.2 L Blood Type Antibody Screen Crossmatch 11/11/17 05:12 WBC RBC Hgb Hct MCV MCH MCHC RDW Plt Count MPV Neutrophils % Lymphocytes % Monocytes % Eosinophils % Basophils % Retic Count 2.14 H PT with INR INR Sodium Potassium Chloride Carbon Dioxide Anion Gap BUN Creatinine Creat Clearance w eGFR Random Glucose Calcium Phosphorus Magnesium Total Bilirubin Direct Bilirubin AST ALT Alkaline Phosphatase C-Reactive Protein Total Protein Albumin Blood Type Antibody Screen Crossmatch HOSPITAL COURSE: Date of Admission:11/03/17 Date of Discharge: 11/11/17 82 year-old female with PMH signficant for HTN, afib on Eliquis, polio s/p right hip and right ankle fusions, and chronic RLE venous stasis ulcer. On she presented to the [facility] ED with a complaint of painless jaundice and foul-smelling diarrhea x 3 days. No nausea, vomiting, fever, chills. No weight loss. No previous episodes, no history of pancreaticobiliary problems. ER course was notable for: (1) WBC 23.5 (2) T Bili 7.4, D Bili 5.0, AST 61, ALT 87, Alk Phos 396 (3) K 3.3 (4) Vanc x 1; Zosyn x 1; metronidazole x 1 Subsequent hospital course Choledocholithiasis with cholangitis and biliary tract obstruction --11/03 ERCP and sphincterotomy; stone and sludge extracted --11/07 lap manuel --11/08 POD #1 Tot bili 1.9 --11/09 POD #2 Tot bili 3.2 --11/10 HIDA: high grade CBD obstruction --11/10 ERCP attempted and aborted; large blood clot visualized; Lovenox stopped; Vit K x 1 dose; 2units FFP --11/10 CTA: 0.5cm density/calculus within distal CBD; CBD dilated 1.7cm; no definite contrast extravasation --11/11 ERCP: obstruction CBD 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 --[id number] pending --will need outpatient follow up Right upper extremity weakness, likely right shoulder arthritis --developed on morning of POD #1; patient described alternatively as as numbness, weakness, heaviness, pain to forearm, elbow, shoulder --Code Russell was called; CT head and MRI brain negative for acute findings, US carotids unremarkable --11/10 Echo: LV normal; RV normal; LAE; mild to moderate MR; moderate TR --ortho consult: likely arthritis of right shoulder; xray: degenerative changes with high-sitting humeral head in relation to glenoid; r/o rotator cuff injury Atrial fibrillation --rate well-controlled, continue Toprol XL --anti-coagulation stopped due to intraductal bleeding Hypertension --continue Toprol XL E coli UTI --treated with ceftriaxone x 5 days FEN Fluids: D5NS@83mL/hr Electrolytes: replete as indicated Nutrition: NPO DVT prophylaxis: SCDs Physical therapy: h/o polio, uses walker at home Dispo: transfer to [facility]. Minutes to complete discharge: 60 Discharge Summary Reason For Visit: OBSTRUCTIVE JAUNDICE Current Active Problems Anticoagulant long-term use (Acute) Choledocholithiasis (Acute) History of anticoagulant use (Acute) Jaundice (Acute) Jaundice (Acute) Pancreatic cyst (Acute) Right shoulder pain (Acute) Condition: Stable - Instructions Referrals: Umang Marks MD [Primary Care Provider] - Disposition: TRANSFER ACUTE CARE/OTHER HOSP - Home Medications Comprehensive Discharge Medication List: Ambulatory Orders Ammonium Lactate Lotion [Lac-Hydrin 12] 1 applic TP ASDIR #1 bottle 09/09/16 Cholecalciferol (Vitamin D3) [Vitamin D3] 2,000 unit PO DAILY capsule 03/19/17 This patient is new to me today: No Emergency Visit: Yes ED Registration Date: 11/03/17 Care time: The patient presented to the Emergency Department on the above date and was hospitalized for further evaluation of their emergent condition. Critical Care patient: Yes Total Critical Care Time (in minutes): 90 Critical Care Statement: The care of this patient involved high complexity decision making to prevent further life threatening deterioration of the patient 's condition and/or to evaluate & treat vital organ system(s) failure or risk of failure. - Discharge Referral Referred to [facility] Med P.C.: No
[2017-11-11 13:18] LABS: HEMATOCRIT 27.3 % (32.4-45.2); HEMOGLOBIN 8.8 GM/dL (10.7-15.3); MCHC 32.3 g/dl (32.0-36.0); MEAN CELL VOLUME 83.6 fl (80-96); PLATELET COUNT 333 K/MM3 (134-434); RBC 3.27 M/mm3 (3.60-5.2); RDW 16.1 % (11.6-15.6); WHITE BLOOD COUNT 14.5 K/mm3 (4.0-10.0)
--- NOTE | 2017-11-11 14:42 | PN ---
Physical Exam: UPDATE: ERCP showed slight migration of clot with abruptly ending CBD with concern of possible CBD/ductal injury. . Will transfer to [facility] for higher level of care. Obtain MRCP and IR to be contacted for percutaneous drainge of biliary tract in setting of extreme ductal dilation. SUBJECTIVE: 24hr events: Pt received ERCP 11/10 after HIDA scan revealed obstructive process in CBD. ERCP on 11/10 was aborted due to obstructive clots near ampulla of vater. CBC was trended which showed an acute decline to 8.4 (change from 11.1). Pt also had abdominal CTA performed which showed severely distended CBD to 1.7cm with 0.5cm density suggestive of an intraductal calculus adjacent to the ampulla. In addition pt received Vitamin K dose and 2 FFP for reversal for her anticoagulated state. Currently, pt has slight abdominal pain, but voices no complaints. She denies any fever/chills, nausea, vomiting, CP/discomfort, and shortness of breath. Pt remains oriented x3. OBJECTIVE: Vital Signs Period Temp Pulse Resp BP Sys/Sequeira Pulse Ox Last 24 Hr 97.6 F-99.2 F 63-94 13-22 107-148/62-98 96-98 GENERAL: NAD, awake, alert, orientedx3, resting in bed HEENT: NC/AT, scleral icterus noted, EOMI, JERZY, No JVD, slightly dry mucosa LUNGS: CTA bilaterally, no wheezes, no crackles, no accessory muscle use. HEART: RRR, S1, S2 without murmur ABDOMEN: Soft, slightly tender around incision sites, mild distention with tympanitic percussion, hypoactive BS, no guarding or rebound. EXTREMITIES: 2+ DP pulses, warm, well-perfused, no edema. NEUROLOGICAL: R extremity strength 4/5 in all aspects compared to L extremities 5/5 strength. Slight mouth asymmetry noted (unchanged from previous exam). Sensation continues to be grossly intact. . Normal speech, gait not observed. PSYCH: Normal mood, normal affect. SKIN: Jaundiced, warm, dry, no overt rashes seen Laboratory Results 11/11/17 05:12 WBC 16.1 H RBC 3.47 L Hgb 9.5 L D Hct 29.1 L MCV 83.7 MCH 27.3 MCHC 32.6 RDW 16.2 H Plt Count 335 MPV 9.7 Neutrophils % 74.3 Lymphocytes % 18.1 D Monocytes % 7.1 D Eosinophils % 0.3 D Basophils % 0.2 D Retic Count PT with INR INR Sodium Potassium Chloride Carbon Dioxide Anion Gap BUN Creatinine Creat Clearance w eGFR Random Glucose Calcium Phosphorus Magnesium Total Bilirubin Direct Bilirubin AST ALT Alkaline Phosphatase C-Reactive Protein Total Protein Albumin Blood Type Antibody Screen Crossmatch 11/11/17 11/11/17 05:12 05:12 WBC RBC Hgb Hct MCV MCH MCHC RDW Plt Count MPV Neutrophils % Lymphocytes % Monocytes % Eosinophils % Basophils % Retic Count PT with INR 12.70 H INR 1.12 Sodium 142 Potassium 3.2 L Chloride 106 Carbon Dioxide 28 Anion Gap 8 BUN 10 Creatinine 0.3 L Creat Clearance w eGFR > 60 Random Glucose 93 Calcium 7.5 L Phosphorus 2.0 L Magnesium 2.1 Total Bilirubin 5.9 H Direct Bilirubin 5.0 H AST 92 H ALT 50 Alkaline Phosphatase 830 H C-Reactive Protein Total Protein 5.2 L Albumin 2.2 L Blood Type Antibody Screen Crossmatch Active Medications Generic Name Dose Route Start Last Admin Trade Name Freq PRN Reason Stop Dose Admin Acetaminophen 1,000 mg 11/09/17 20:29 11/11/17 00:54 Ofirmev Injection - IVPB 1,000 mg Q6H PRN Administration PAIN OR FEVER Pantoprazole Sodium 160 mg/ 290 mls @ 14.5 mls/hr 11/10/17 17:00 11/10/17 21: 00 Dextrose IVPB 14.5 mls/hr Q20H [facility] Administration Dextrose/Sodium Chloride 1,000 mls @ 83 mls/hr 11/10/17 19:45 11/11/17 12:33 D5-Ns - IV 83 mls/hr ASDIR [facility] Administration Piperacillin Sod/Tazobactam 100 mls @ 200 mls/hr 11/11/17 10:00 11/11/17 12: 16 Sod 4.5 gm/ Dextrose IVPB 200 mls/hr Q8H-IV [facility] Administration Methyl Salicylate 1 applic 11/07/17 22:00 11/11/17 00:44 Peter-Wolff - TP 1 applic BID [facility] Administration Metoprolol Succinate 50 mg 11/08/17 10:00 11/11/17 09:12 Toprol Xl - PO 50 mg DAILY [facility] Administration Nifedipine 90 mg 11/08/17 10:00 11/10/17 17:12 Procardia Xl - PO Not Given DAILY [facility] Potassium Chloride 40 meq 11/11/17 09:00 11/11/17 09:11 K-Dur - PO 11/11/17 15:01 40 meq Q6H [facility] Administration ASSESSMENT/PLAN: Neuro: --Monitor for hepatic encephalopathy signs --Prior history of polio infection with residual R-sided weakness --MRI Head reviewed prior --Continue to monitor neurological status --Neurology on board (Dr. Duarte) Respiratory: --Clinically stable at this time Cardiovascular: History of Atrial fibrillation --Previously on Eliquis at home --Holding anticoagulation in setting clots found --Toprol XL 50mg qDaily PO to continue --Procardia 90mg PO qDaily to continue GI: Jaundice: --Monitor for hepatic encephalopathy signs --Currently T.bili/D. Bili of 5.9/5.0 (worsening) --GI on board (Dr. Tae Cristina) --F/U ERCP today to see if migration of clot would allow for assessment of CBD --Pending results will dictate management --Continue Protonix IVPB S/P Cholecystectomy 11/07: --Surgery following (Dr. Chavarria) --Incisions C/D/I Renal: --No active problems at this time ID: Due to suspected intraductal calficiation and the potential for biliary tree infection will start Zosyn 3.375gm q8h ID on board with approval (Dr. Schmidt) FEN: Fluids: D5W@83cc/hr Electrolyte Abnormalities: Hypokalemia (repleted with KDur 40mEq) Nutrition: NPO for now PPX: GI - Protonix gtt already on board Dispo: Continue ICU level of care; pending ERCP results today Case discussed with Dr. Jackson, Dr. Avery, and Dr. Brayan Feliz, DO - IM PGY-1 Visit type - Emergency Visit Emergency Visit: No - New Patient This patient is new to me today: No - Critical Care Critical Care patient: Yes Total Critical Care Time (in minutes): 38 Critical Care Statement: The care of this patient involved high complexity decision making to prevent further life threatening deterioration of the patient 's condition and/or to evaluate & treat vital organ system(s) failure or risk of failure.
[2017-11-11] MEDS: NIFEdipine E.R. 90 MG TABLET (FP) PO SCH (15:00)
--- NOTE | 2017-11-11 15:41 | PN ---
Progress Note (short form) - Note Progress Note: Events from ERCP discussed with Dr. Avery: his concern was for complete obstruction of CBD / ductal injury I discussed the findings and concerns with Dr. Jason Marroquin, hepatobiliary surgeon at [facility], as did Dr. Avery. I discussed next studies and plan with Dr. Marroquin and with Dr. Vences, interventional radiologist Plan is as follows: 1. Further imaging of the biliary tract with MRCP 2. Percutaneous drainage of the biliary tract via interventional radiology 3. Plan is in place for Ms. Mccarty to be transferred to [facility] for surgical intervention if need be I discussed the ERCP findings with Mariama, Ms. Mccarty's daughter, via telephone earlier today. She is aware of the above plan as well and is in agreement. Discussed the plan with Hospitalist Carlos as well. Problem List - Problems (1) Jaundice Code(s): R17 - UNSPECIFIED JAUNDICE
[2017-11-11] MEDS: PANTOPRAZOLE SODIUM 160 MG in DEXTROSE 5%-WATER - 290 ML IVPB SCH (16:56)
--- NOTE | 2017-11-11 17:37 | PATH ---
Surgical Pathology Report Patient Name: SYDNEY KANG [facility]. Rec. #: [id number] /Age/Gender: 1935 (Age: 82) / F Account: [id number] Location: ICU CORE CUTTER Taken: 11/07/2017 Received: 11/07/2017 Reported: 11/11/2017 Physicians: MD Seng Koroma M.D. Specimen(s) Received GALLBLADDER Clinical History Cholelithiasis status post choledocholithiasis Final Diagnosis GALLBLADDER, GALLSTONE, LAPAROSCOPIC CHOLECYSTECTOMY: CHRONIC CHOLECYSTITIS AND CHOLELITHIASIS. ONE BENIGN PERIDUCTAL LYMPH NODE (0/1). Electronically Signed Geeta Pickens M.D. Gross Description Received in formalin, labeled "gallbladder, gallstone," is a 10.0 x 3.5 x 2.8 cm. gallbladder with a 0.2 cm. in length portion of cystic duct attached. There is a 0.5 cm greatest dimension possible periductal lymph node present. The outer surface is mckee moreira and varies from smooth to shaggy. The lumen contains green, tenacious bile as well as 6 black, irregular choleliths ranging from 0.5-1.8 cm in greatest dimension. The mucosa is green and velvety. The wall of the gallbladder averages 0.2 cm. in thickness. Supervisor Tower sections are submitted in one cassette. 11/10/201711/10/2017
[2017-11-11 19:07] LABS: HEMATOCRIT 28.7 % (32.4-45.2); HEMOGLOBIN 9.2 GM/dL (10.7-15.3); MEAN CELL VOLUME 84.4 fl (80-96); MEAN PLT VOLUME 9.7 fl (7.5-11.1); PLATELET COUNT 362 K/MM3 (134-434); RDW 16.4 % (11.6-15.6); WHITE BLOOD COUNT 14.7 K/mm3 (4.0-10.0)
[2017-11-11] MEDS ORDERED: ACETAMINOPHEN 325 MG TABLET (FP) PO ONE (21:15)
[2017-11-11] MEDS ORDERED: diphenhydrAMINE HCL 25 MG CAPSULE (FP) PO ONE (21:15)
--- NOTE | 2017-11-11 21:49 | PN ---
Progress Note (short form) - Note Progress Note: GI NOte: MRCP discussed with Dr Bella. The CBD appears to have cleared the stone or clot ? . Messaged with Dr Chavarria. Hoping for drop in bilirubin in AM. Bleeding appears to have stopped. Updated Lupe on her status Problem List - Problems (1) Choledocholithiasis Code(s): K80.50 - CALCULUS OF BILE DUCT W/O CHOLANGITIS OR CHOLECYST W/O OBST (2) Jaundice Code(s): R17 - UNSPECIFIED JAUNDICE (3) Pancreatic cyst Code(s): K86.2 - CYST OF PANCREAS
[2017-11-12] MEDS ORDERED: PT OWN MED DRAWER 7, Y5N ONE ×2 (00:52→10:02)
[2017-11-12 01:13] LABS: HEMATOCRIT 26.9 % (32.4-45.2); HEMOGLOBIN 8.7 GM/dL (10.7-15.3); MCH 27.3 pg (25.7-33.7); MCHC 32.3 g/dl (32.0-36.0); MEAN CELL VOLUME 84.6 fl (80-96); MEAN PLT VOLUME 9.5 fl (7.5-11.1); PLATELET COUNT 337 K/MM3 (134-434); RBC 3.19 M/mm3 (3.60-5.2); RDW 16.3 % (11.6-15.6)
[2017-11-12] MEDS: PIPERACILLIN/TAZOB 4.5 GM 4.5 GM in DEXTROSE 5%-WATER - 100 ML IVPB SCH ×3 (01:23→17:47)
[2017-11-12] MEDS: DEXTROSE 5%-NORMAL SALINE 1,000 ML IV SCH ×2 (01:24→21:49)
--- NOTE | 2017-11-12 06:35 | PN ---
Progress Note, Physician Chief Complaint: ID Asymtomatic Was started on Zosyn Has been without any fever or chills - Current Medication List Current Medications: Active Medications Acetaminophen (Ofirmev Injection -) 1,000 mg IVPB Q6H PRN PRN Reason: PAIN OR FEVER Last Admin: 11/11/17 00:54 Dose: 1,000 mg Diphenhydramine HCl (Benadryl -) 25 mg PO HS PRN PRN Reason: INSOMNIA Pantoprazole Sodium 160 mg/ (Dextrose) 290 mls @ 14.5 mls/hr IVPB Q20H [facility] Last Admin: 11/11/17 16:56 Dose: 14.5 mls/hr Dextrose/Sodium Chloride (D5-Ns -) 1,000 mls @ 83 mls/hr IV ASDIR [facility] Last Admin: 11/12/17 01:24 Dose: 83 mls/hr Piperacillin Sod/Tazobactam (Sod 4.5 gm/ Dextrose) 100 mls @ 200 mls/hr IVPB Q8H-IV [facility] Last Admin: 11/12/17 01:23 Dose: 200 mls/hr Methyl Salicylate (Peter-Wolff -) 1 applic TP BID [facility] Last Admin: 11/11/17 21:49 Dose: 1 applic Metoprolol Succinate (Toprol Xl -) 50 mg PO DAILY [facility] Last Admin: 11/11/17 09:12 Dose: 50 mg Nifedipine (Procardia Xl -) 90 mg PO DAILY [facility] Last Admin: 11/11/17 15:00 Dose: 90 mg - Objective Vital Signs: Vital Signs Temperature 98.3 F 11/12/17 06:00 Pulse Rate 69 11/12/17 06:00 Respiratory Rate 16 11/12/17 06:00 Blood Pressure 108/65 11/12/17 06:00 O2 Sat by Pulse Oximetry (%) 98 11/11/17 22:00 Constitutional: Yes: Well Nourished, No Distress HENT: Yes: WNL, Atraumatic Neck: Yes: WNL, Supple Cardiovascular: Yes: Regular Rate and Rhythm, S1, S2. No: Murmur Respiratory: Yes: WNL, Regular, CTA Bilaterally, Wheezes Gastrointestinal: Yes: WNL, Normal Bowel Sounds. No: Tenderness, Tenderness, Rebound Edema: No Labs: CBC, BMP 11/12/17 01:00 11/11/17 05:12 INR, PTT INR 1.12 (0.82-1.09) 11/11/17 05:12 Assessment/Plan Microbiology 11/03/17 16:41 Blood - Peripheral Venous Blood Culture - Final NO GROWTH AFTER 5 DAYS INCUBATION 11/03/17 16:41 Blood - Peripheral Venous Blood Culture - Final NO GROWTH AFTER 5 DAYS INCUBATION Laboratory Tests 11/11/17 11/11/17 11/12/17 05:12 05:12 01:00 WBC 15.0 H Hgb 8.7 L Hct 26.9 L Plt Count 337 INR 1.12 Creat Clearance w eGFR > 60 Total Bilirubin 5.9 H Direct Bilirubin 5.0 H Alkaline Phosphatase 830 H Assessment Choledocholithiasis afebrile Currently without evidence for infection POst procedure unsuccessful effort to cannulated ducts secondary blood clots Plan Transfer to [facility] is pending. Unsure as to current need for antibiotic but will check this with GI Currently no evidence for chalangitis Adelaide RODRIGUEZ
[2017-11-12 07:26] LABS: INR 1.04 (0.82-1.09); PROTHROMBIN TIME (PATIENT) 11.7 SEC (9.98-11.88)
[2017-11-12 08:01] LABS: ALBUMIN 2.1 g/dl (3.4-5.0); ANION GAP 12 (8-16); BILIRUBIN,DIRECT 1.7 mg/dL (0.0-0.2); BLOOD UREA NITROGEN 5 mg/dL (7-18); CALCIUM 7.8 mg/dL (8.5-10.1); CHLORIDE 106 mmol/L (98-107); CO2 23 mmol/L (21-32); CREATININE 0.3 mg/dL (0.55-1.02); GLUCOSE,RANDOM 95 mg/dL (74-106); PHOSPHOROUS 1.7 mg/dL (2.5-4.9); POTASSIUM 3.7 mmol/L (3.5-5.1); SGOT/AST 44 U/L (15-37); SGPT/ALT 39 U/L (12-78); SODIUM 141 mmol/L (136-145)
[2017-11-12 08:03] LABS: ALK PHOS 712 U/L (45-117); BILIRUBIN,TOTAL 2.2 mg/dL (0.2-1.0); TOT PROT 5.3 g/dl (6.4-8.2)
[2017-11-12 08:11] LABS: HEMATOCRIT 30.1 % (32.4-45.2); HEMOGLOBIN 9.5 GM/dL (10.7-15.3); MCHC 31.6 g/dl (32.0-36.0); MEAN CELL VOLUME 85.4 fl (80-96); MEAN PLT VOLUME 9.8 fl (7.5-11.1); PLATELET COUNT 333 K/MM3 (134-434); RBC 3.53 M/mm3 (3.60-5.2); RDW 16.5 % (11.6-15.6); WHITE BLOOD COUNT 14.7 K/mm3 (4.0-10.0)
[2017-11-12 08:38] LABS: AMYLASE 25 U/L (25-115); LIPASE 95 U/L (73-393)
--- NOTE | 2017-11-12 09:23 | PN ---
Physical Exam: SUBJECTIVE: Patient seen and examined OBJECTIVE: Vital Signs Period Temp Pulse Resp BP Sys/Sequeira Pulse Ox Last 24 Hr 97.8 F-98.4 F 51-111 14-20 108-143/64-103 96-98 GENERAL: The patient is awake, alert, and fully oriented, in no acute distress. HEAD: Normal with no signs of trauma. EYES: PERRL, extraocular movements intact, sclera anicteric, conjunctiva clear. No ptosis. ENT: Ears normal, nares patent, oropharynx clear without exudates, moist mucous membranes. NECK: Trachea midline, full range of motion, supple. LUNGS: Breath sounds equal, clear to auscultation bilaterally, no wheezes, no crackles, no accessory muscle use. HEART: Regular rate and rhythm, S1, S2 without murmur, rub or gallop. ABDOMEN: Soft, nontender, nondistended, normoactive bowel sounds, no guarding, no rebound, no hepatosplenomegaly, no masses. EXTREMITIES: 2+ pulses, warm, well-perfused, no edema. NEUROLOGICAL: Cranial nerves II through XII grossly intact. Normal speech, gait not observed. PSYCH: Normal mood, normal affect. SKIN: Warm, dry, normal turgor, no rashes or lesions noted Laboratory Results 11/12/17 11/12/17 11/12/17 01:00 06:30 06:30 WBC 15.0 H 14.7 H RBC 3.19 L 3.53 L Hgb 8.7 L 9.5 L Hct 26.9 L 30.1 L MCV 84.6 85.4 MCH 27.3 27.0 MCHC 32.3 31.6 L RDW 16.3 H 16.5 H Plt Count 337 333 MPV 9.5 9.8 Retic Count PT with INR INR Sodium Potassium Chloride Carbon Dioxide Anion Gap BUN Creatinine Creat Clearance w eGFR Random Glucose Calcium Phosphorus Magnesium Ferritin Total Bilirubin Direct Bilirubin AST ALT Alkaline Phosphatase C-Reactive Protein Cancelled Total Protein Albumin Total Amylase Lipase 11/12/17 11/12/17 11/12/17 06:45 06:45 06:45 WBC RBC Hgb Hct MCV MCH MCHC RDW Plt Count MPV Retic Count PT with INR 11.70 INR 1.04 Sodium 141 Potassium 3.7 Chloride 106 Carbon Dioxide 23 Anion Gap 12 BUN 5 L Creatinine 0.3 L Creat Clearance w eGFR > 60 Random Glucose 95 Calcium 7.8 L Phosphorus 1.7 L Magnesium 2.0 Ferritin 129.527 Cancelled Total Bilirubin 2.2 H D Direct Bilirubin 1.7 H AST 44 H ALT 39 Alkaline Phosphatase 712 H C-Reactive Protein 1.9 H Total Protein 5.3 L Albumin 2.1 L Total Amylase 25 Cancelled Lipase 95 Cancelled Active Medications Generic Name Dose Route Start Last Admin Trade Name Freq PRN Reason Stop Dose Admin Acetaminophen 1,000 mg 11/09/17 20:29 11/11/17 00:54 Ofirmev Injection - IVPB 1,000 mg Q6H PRN Administration PAIN OR FEVER Diphenhydramine HCl 25 mg 11/12/17 22:00 Benadryl - PO HS PRN INSOMNIA Pantoprazole Sodium 160 mg/ 290 mls @ 14.5 mls/hr 11/10/17 17:00 11/11/17 16: 56 Dextrose IVPB 14.5 mls/hr Q20H [facility] Administration Dextrose/Sodium Chloride 1,000 mls @ 83 mls/hr 11/10/17 19:45 11/12/17 01:24 D5-Ns - IV 83 mls/hr ASDIR [facility] Administration Piperacillin Sod/Tazobactam 100 mls @ 200 mls/hr 11/11/17 10:00 11/12/17 01: 23 Sod 4.5 gm/ Dextrose IVPB 200 mls/hr Q8H-IV [facility] Administration Methyl Salicylate 1 applic 11/07/17 22:00 11/11/17 21:49 Peter-Wolff - TP 1 applic BID [facility] Administration Metoprolol Succinate 50 mg 11/08/17 10:00 11/11/17 09:12 Toprol Xl - PO 50 mg DAILY [facility] Administration Nifedipine 90 mg 11/08/17 10:00 11/11/17 15:00 Procardia Xl - PO 90 mg DAILY [facility] Administration ASSESSMENT/PLAN: GI: Billiary tree obstruction: --Abdominal MRI reviewed: obstructive process has been moved --LFTs this morning showing marked improvement --Currently T.bili/D. Bili of 2.2/1.7 --Will defer from any other decompression procedure at this time --Will follow recommendations from GI and discuss with them --Most likely will monitor and no need for transfer to tertiary care center --GI on board (Dr. Tae Cristina/Cristian covering from [facility]) --Continue Protonix IVPB S/P Cholecystectomy 11/07: --Surgery following (Dr. Chavarria) --Incisions C/D/I Neuro --Prior history of polio infection with residual R-sided weakness --MRI Head reviewed prior --Continue to monitor neurological status --Neurology on board (Dr. Duarte) Respiratory: --Clinically stable at this time Cardiovascular: History of Atrial fibrillation --Previously on Eliquis at home --Holding anticoagulation in setting clots found; will need to discuss risk vs. benefits and timing for restart --Toprol XL 50mg qDaily PO to continue --Procardia 90mg PO qDaily to continue Renal: --No active problems at this time ID: Due to suspected intraductal calficiation and the potential for biliary tree infection will continue Zosyn 3.375gm q8h ID on board with approval (Dr. Schmidt) --Possibly can D/C abx in setting improving labs FEN: Fluids: D5W@83cc/hr while NPO Electrolyte Abnormalities: None currently Nutrition: Will discuss with GI about dictation of upgrading diet PPX: GI - Protonix gtt already on board Dispo: Transfer to med-surg (order in) Case discussed with Dr. Manuel Feliz, DO - IM PGY-1 Visit type - Emergency Visit Emergency Visit: No - New Patient This patient is new to me today: No - Critical Care Critical Care patient: Yes Total Critical Care Time (in minutes): 37 Critical Care Statement: The care of this patient involved high complexity decision making to prevent further life threatening deterioration of the patient 's condition and/or to evaluate & treat vital organ system(s) failure or risk of failure.
--- NOTE | 2017-11-12 10:03 | PN ---
Physical Exam: SUBJECTIVE: Patient seen and examined in ICU. She feels tired, but not far from baseline. She would like to know if she is going for IR procedure or not. Denies fever, chills, abdominal pain. OBJECTIVE: Vital Signs Period Temp Pulse Resp BP Sys/Sequeira Pulse Ox Last 24 Hr 98.0 F-98.4 F 51-111 14-20 108-143/65-103 96-98 PE Neuro: alert, awake, cn 2-12intact Pulm: CTA anteriorly CV: s1 s2 irregular rhythm regular rate Abd: abd incisions w/ steri strips dried blood, no erythema, soft + bc Ext: RLE chronic skin change, no le edema Laboratory Results - last 24 hr 11/11/17 11/11/17 11/12/17 13:10 18:00 01:00 WBC 14.5 H 14.7 H 15.0 H RBC 3.27 L 3.40 L 3.19 L Hgb 8.8 L 9.2 L 8.7 L Hct 27.3 L 28.7 L 26.9 L MCV 83.6 84.4 84.6 MCH 27.0 27.0 27.3 MCHC 32.3 32.0 32.3 RDW 16.1 H 16.4 H 16.3 H Plt Count 333 362 337 MPV 9.0 9.7 9.5 PT with INR INR Sodium Potassium Chloride Carbon Dioxide Anion Gap BUN Creatinine Creat Clearance w eGFR Random Glucose Calcium Phosphorus Magnesium Ferritin Total Bilirubin Direct Bilirubin AST ALT Alkaline Phosphatase C-Reactive Protein Total Protein Albumin Total Amylase Lipase 11/12/17 11/12/17 11/12/17 06:30 06:30 06:45 WBC 14.7 H RBC 3.53 L Hgb 9.5 L Hct 30.1 L MCV 85.4 MCH 27.0 MCHC 31.6 L RDW 16.5 H Plt Count 333 MPV 9.8 PT with INR 11.70 INR 1.04 Sodium Potassium Chloride Carbon Dioxide Anion Gap BUN Creatinine Creat Clearance w eGFR Random Glucose Calcium Phosphorus Magnesium Ferritin Total Bilirubin Direct Bilirubin AST ALT Alkaline Phosphatase C-Reactive Protein Cancelled Total Protein Albumin Total Amylase Lipase 11/12/17 11/12/17 06:45 06:45 WBC RBC Hgb Hct MCV MCH MCHC RDW Plt Count MPV PT with INR INR Sodium 141 Potassium 3.7 Chloride 106 Carbon Dioxide 23 Anion Gap 12 BUN 5 L Creatinine 0.3 L Creat Clearance w eGFR > 60 Random Glucose 95 Calcium 7.8 L Phosphorus 1.7 L Magnesium 2.0 Ferritin 129.527 Cancelled Total Bilirubin 2.2 H D Direct Bilirubin 1.7 H AST 44 H ALT 39 Alkaline Phosphatase 712 H C-Reactive Protein 1.9 H Total Protein 5.3 L Albumin 2.1 L Total Amylase 25 Cancelled Lipase 95 Cancelled Active Medications Generic Name Dose Route Start Last Admin Trade Name Freq PRN Reason Stop Dose Admin Acetaminophen 1,000 mg 11/09/17 20:29 11/11/17 00:54 Ofirmev Injection - IVPB 1,000 mg Q6H PRN Administration PAIN OR FEVER Diphenhydramine HCl 25 mg 11/12/17 22:00 Benadryl - PO HS PRN INSOMNIA Pantoprazole Sodium 160 mg/ 290 mls @ 14.5 mls/hr 11/10/17 17:00 11/11/17 16: 56 Dextrose IVPB 14.5 mls/hr Q20H [facility] Administration Dextrose/Sodium Chloride 1,000 mls @ 83 mls/hr 11/10/17 19:45 11/12/17 01:24 D5-Ns - IV 83 mls/hr ASDIR [facility] Administration Piperacillin Sod/Tazobactam 100 mls @ 200 mls/hr 11/11/17 10:00 11/12/17 01: 23 Sod 4.5 gm/ Dextrose IVPB 200 mls/hr Q8H-IV [facility] Administration Methyl Salicylate 1 applic 11/07/17 22:00 11/11/17 21:49 Peter-Wolff - TP 1 applic BID [facility] Administration Metoprolol Succinate 50 mg 11/08/17 10:00 11/11/17 09:12 Toprol Xl - PO 50 mg DAILY [facility] Administration Nifedipine 90 mg 11/08/17 10:00 11/11/17 15:00 Procardia Xl - PO 90 mg DAILY [facility] Administration Assessment: 82 year old female with PMH significant for HTN, afib on Eliquis, polio s/p right hip and right ankle fusions, and chronic RLE venous stasis ulcer. On 11/03/17 she presented to the [facility] ED with a complaint of painless jaundice and foul-smelling diarrhea x 3 days. On 11/03 underwent ERCP and sphincterotomy; stone and sludge extracted with lap manuel on 11/07, on HIDA scan showed CBD obstruction, ERCP attempted and aborted due to large blood clot and interductal bleeding, CTA showed distal CBD stone. Plan: 1. Choledocholithiasis with cholangitis and biliary tract obstruction - Per discussion with radiology and GI, 11/11 MRCP shows possible stone clearing - Today Bilil down trended - Decision for IR drain TBD per surgery and gi vs transfer to [facility], awaiting answer - No abx at this time per id 2. Intraductal papillary mucinous neoplasm - Seen on MRI - Ca19-9 pending - Will need outpatient follow up 3. RUE weakness - Likely right shoulder arthritis r/o rotator cuff injury per ortho 4. Atrial fibrillation, rate controlled - Continue Toprol XL - Previously on eliquis, on hold d/t bleeding, ?restart following termination of invasive procedures - Can restart per neuro 5. HTN - Continue Toprol XL 6. E coli UTI - S/p ceftriaxone x 5 days 7. DVT ppx - SCDS Visit type - Emergency Visit Emergency Visit: Yes ED Registration Date: 11/03/17 Care time: The patient presented to the Emergency Department on the above date and was hospitalized for further evaluation of their emergent condition. - New Patient This patient is new to me today: No - Critical Care Critical Care patient: No
--- NOTE | 2017-11-12 10:06 | PN ---
Progress Note (short form) - Note Progress Note: Neurology HPI: 82F with PMH of polio s/p Right hip fusion, Right ankle fusion, chronic Right LE veous statis ulcer, htn, afib (on Eliquis), admitted to [facility] for ERCP/ cholecystectomy on 11/04/17. Today, c/o new onset Right arm weakness/tingling along with Right elbow pain, no trauma reported by patient. Code lillie was called , concern for possible CVA, CT head without acute changes, no bleed. Patient Not TPA candidate due to being on AC and recent surgery. Patient transferred to ICU, family at bedside, discussed with them again today. Ordered MRI brain to further evaluate for possible CVA and imaging did not show CVA. Chronic changes noted. She is moving RUE but with c/o pain as well as weakness. Does report feeling better today. Active Medications Acetaminophen (Ofirmev Injection -) 1,000 mg IVPB Q6H PRN PRN Reason: PAIN OR FEVER Last Admin: 11/09/17 21:56 Dose: 1,000 mg Enoxaparin Sodium (Lovenox -) 60 mg SQ BID [facility] Last Admin: 11/09/17 22:11 Dose: 60 mg Sodium Chloride (Normal Saline -) 1,000 mls @ 42 mls/hr IV ASDIR [facility] Last Admin: 11/09/17 15:07 Dose: 42 mls/hr Methyl Salicylate (Peter-Wolff -) 1 applic TP BID [facility] Last Admin: 11/09/17 22:11 Dose: 1 applic Metoprolol Succinate (Toprol Xl -) 50 mg PO DAILY [facility] Last Admin: 11/09/17 09:26 Dose: 50 mg Nifedipine (Procardia Xl -) 90 mg PO DAILY [facility] Last Admin: 11/09/17 09:26 Dose: 90 mg Vital Signs Temperature 98.0 F 11/10/17 10:00 Pulse Rate 100 H 11/10/17 10:00 Respiratory Rate 17 11/10/17 10:00 Blood Pressure 120/82 11/10/17 10:00 O2 Sat by Pulse Oximetry (%) 95 11/10/17 09:00 General: AAOx3, NAD, no confusion Respiratory: CTAB, lungs clear CV: RRR, no murmurs appreciated GI: soft, nontender to palpation Neuro: 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 No able to raise UE for FTN testing MS: no creptius or deformity appreciated to Right elbow Ext: Pulses intact, no rashes Imaging: CT head reviewed MRI brain reviewed Plan: 82F with PMH of polio s/p Right hip fusion, Right ankle fusion, chronic Right LE veous statis ulcer, htn, afib (on Eliquis), admitted to [facility] for ERCP/ cholecystectomy on 11/04/17. Today, c/o new onset Right arm weakness/tingling along wqith Right elbow pain, no trauma reported by patient. James moreira was called, I spoke with hospitalist. Patient with possible CVA, CT head without acute changes, no bleed. Patient Not TPA candidate due to being on AC. Patient transferred to ICU. MRI brain without acute CVA BP goal < 130/90 as outpatient She is moving RUE but with c/o pain as well as weakness. Consider ortho consult as MRI did not demonstrate CVA Physical therapy recommended On Eliquis, can continue, caution with further trauma Will not pursue further echo or carotid as MRI did not show new CVA Remains in ICU, close monitoring, neuro checks GI mgmt ongoing Critical care time 35 mins
[2017-11-12] MEDS: METHYL SALICYLATE/MENTHOL OINT 30 GM TUBE TP SCH ×2 (10:21→21:49)
[2017-11-12] MEDS: NIFEdipine E.R. 90 MG TABLET (FP) PO SCH (10:21)
--- NOTE | 2017-11-12 12:31 | PN ---
Teaching Attending Note Name of Resident: Tashi Feliz ATTENDING PHYSICIAN STATEMENT I saw and evaluated the patient. I reviewed the resident's note and discussed the case with the resident. I agree with the resident's findings and plan as documented. SUBJECTIVE: Pt seen and examined in the ICU. MRI yesterday showing improvement in CBD dilatation. Pt denies abdominal pain, nausea or vomiting. No fevers or chills. OBJECTIVE: Last Vital Signs Temp Pulse Resp BP Pulse Ox 97.8 F 63 17 122/86 98 11/12/17 10:00 11/12/17 10:00 11/12/17 10:00 11/12/17 10:00 11/12/17 09:00 Intake & Output 11/09/17 11/10/17 11/11/17 11/12/17 23:59 23:59 23:59 23:59 Intake Total 1642 2575 2579 1370 Output Total 100 100 Balance 1542 2475 2579 1370 Weight 60.01 kg 61.32 kg 61.774 kg 61.745 kg Gen: less jaundiced Heart: RRR Lung: decreased breath sounds at the bases Abd: soft, nontender Ext: no edema CBC, BMP 11/12/17 06:30 11/12/17 06:45 Active Medications Acetaminophen (Ofirmev Injection -) 1,000 mg IVPB Q6H PRN PRN Reason: PAIN OR FEVER Last Admin: 11/11/17 00:54 Dose: 1,000 mg Diphenhydramine HCl (Benadryl -) 25 mg PO HS PRN PRN Reason: INSOMNIA Pantoprazole Sodium 160 mg/ (Dextrose) 290 mls @ 14.5 mls/hr IVPB Q20H [facility] Last Admin: 11/11/17 16:56 Dose: 14.5 mls/hr Dextrose/Sodium Chloride (D5-Ns -) 1,000 mls @ 83 mls/hr IV ASDIR [facility] Last Admin: 11/12/17 01:24 Dose: 83 mls/hr Piperacillin Sod/Tazobactam (Sod 4.5 gm/ Dextrose) 100 mls @ 200 mls/hr IVPB Q8H-IV [facility] Last Admin: 11/12/17 10:21 Dose: 200 mls/hr Methyl Salicylate (Peter-Wolff -) 1 applic TP BID [facility] Last Admin: 11/12/17 10:21 Dose: 1 applic Metoprolol Succinate (Toprol Xl -) 50 mg PO DAILY [facility] Last Admin: 11/12/17 10:21 Dose: 50 mg Nifedipine (Procardia Xl -) 90 mg PO DAILY [facility] Last Admin: 11/12/17 10:21 Dose: 90 mg ASSESSMENT AND PLAN: Choledocholithiasis with cholangitis s/p ERCP CBD stone removal on 11/05, lap manuel on 11/07 E.Coli UTI Atrial Fibrillation HTN - stone appears to have passed, monitor LFTs - antibiotics per ID - f/u cultures - GI, surgery f/u - rate control - resume anticoagulation if no further invasive procedures planned - PO per GI - DVT prophylaxis - can monitor on floor
[2017-11-12] MEDS: PANTOPRAZOLE SODIUM 160 MG in DEXTROSE 5%-WATER - 290 ML IVPB SCH (12:39)
--- NOTE | 2017-11-12 12:57 | PN ---
Progress Note, Physician Chief Complaint: Pt. comfortable, pain controlled. No GA complaints. - Current Medication List Current Medications: Active Medications Acetaminophen (Ofirmev Injection -) 1,000 mg IVPB Q6H PRN PRN Reason: PAIN OR FEVER Last Admin: 11/11/17 00:54 Dose: 1,000 mg Diphenhydramine HCl (Benadryl -) 25 mg PO HS PRN PRN Reason: INSOMNIA Pantoprazole Sodium 160 mg/ (Dextrose) 290 mls @ 14.5 mls/hr IVPB Q20H [facility] Last Admin: 11/12/17 12:39 Dose: 14.5 mls/hr Dextrose/Sodium Chloride (D5-Ns -) 1,000 mls @ 83 mls/hr IV ASDIR [facility] Last Admin: 11/12/17 01:24 Dose: 83 mls/hr Piperacillin Sod/Tazobactam (Sod 4.5 gm/ Dextrose) 100 mls @ 200 mls/hr IVPB Q8H-IV [facility] Last Admin: 11/12/17 10:21 Dose: 200 mls/hr Methyl Salicylate (Peter-Wolff -) 1 applic TP BID [facility] Last Admin: 11/12/17 10:21 Dose: 1 applic Metoprolol Succinate (Toprol Xl -) 50 mg PO DAILY [facility] Last Admin: 11/12/17 10:21 Dose: 50 mg Nifedipine (Procardia Xl -) 90 mg PO DAILY [facility] Last Admin: 11/12/17 10:21 Dose: 90 mg - Objective Vital Signs: Vital Signs Temperature 97.8 F 11/12/17 10:00 Pulse Rate 60 11/12/17 12:00 Respiratory Rate 17 11/12/17 12:00 Blood Pressure 114/64 11/12/17 12:00 O2 Sat by Pulse Oximetry (%) 98 11/12/17 09:00 Constitutional: Yes: Well Nourished, No Distress, Calm Musculoskeletal: Yes: WNL Neurological: Yes: WNL, Alert, Oriented Labs: CBC, BMP 11/12/17 06:30 11/12/17 06:45 INR, PTT INR 1.04 (0.82-1.09) 11/12/17 06:45 Assessment/Plan POD#1 s/p ERCP under GA. Doing well. D/C from anesthesia care.
[2017-11-12 13:55] LABS: HEMATOCRIT 28.9 % (32.4-45.2); HEMOGLOBIN 9.3 GM/dL (10.7-15.3); MCH 27.1 pg (25.7-33.7); MCHC 32.1 g/dl (32.0-36.0); MEAN CELL VOLUME 84.3 fl (80-96); MEAN PLT VOLUME 9.3 fl (7.5-11.1); PLATELET COUNT 336 K/MM3 (134-434); RBC 3.43 M/mm3 (3.60-5.2); RDW 16.3 % (11.6-15.6)
[2017-11-12] MEDS ORDERED: ACETAMINOPHEN 1000 MG/100 ML VIAL (NON FORMULARY) IVPB PRN (18:24)
--- NOTE | 2017-11-12 20:41 | PN ---
Progress Note (short form) - Note Progress Note: Attending Surgeon POD #5 Much better this AM; latest events noted; wants to eat VSS AF abdomen-benign bili and LFT's coming down IMP:improved PLAN Advance diet as tolerated and continue present tx. and trend LFT's and bili. Kunal Chavarria MD FACS
[2017-11-12 21:43] LABS: HEMATOCRIT 27.5 % (32.4-45.2); HEMOGLOBIN 8.9 GM/dL (10.7-15.3); MCH 27.3 pg (25.7-33.7); MCHC 32.5 g/dl (32.0-36.0); MEAN CELL VOLUME 84.1 fl (80-96); MEAN PLT VOLUME 9.3 fl (7.5-11.1); PLATELET COUNT 374 K/MM3 (134-434); RBC 3.27 M/mm3 (3.60-5.2); RDW 16.1 % (11.6-15.6); WHITE BLOOD COUNT 15.4 K/mm3 (4.0-10.0)
[2017-11-12] MEDS: diphenhydrAMINE HCL 25 MG CAPSULE (FP) PO PRN (21:51)
[2017-11-12] MEDS ORDERED: diphenhydrAMINE HCL 25 MG CAPSULE (FP) PO PRN (22:00)
[2017-11-12] MEDS ORDERED: diphenhydrAMINE HCL 25 MG CAPSULE (FP) PO SCH (22:00)
[2017-11-13] MEDS: PIPERACILLIN/TAZOB 4.5 GM 4.5 GM in DEXTROSE 5%-WATER - 100 ML IVPB SCH ×2 (02:26→11:03)
[2017-11-13] MEDS ORDERED: PANTOPRAZOLE SODIUM 160 MG in DEXTROSE 5%-WATER - 290 ML IVPB SCH (05:00)
[2017-11-13] MEDS: DEXTROSE 5%-NORMAL SALINE 1,000 ML IV SCH ×2 (06:04→19:00)
[2017-11-13 08:22] LABS: HEMATOCRIT 29.7 % (32.4-45.2); HEMOGLOBIN 9.6 GM/dL (10.7-15.3); MCH 27.3 pg (25.7-33.7); MCHC 32.4 g/dl (32.0-36.0); MEAN CELL VOLUME 84.2 fl (80-96); MEAN PLT VOLUME 9.3 fl (7.5-11.1); PLATELET COUNT 377 K/MM3 (134-434); RBC 3.53 M/mm3 (3.60-5.2); WHITE BLOOD COUNT 15.4 K/mm3 (4.0-10.0)
[2017-11-13] MEDS ORDERED: PT OWN MED DRAWER 7, Y5N ONE ×2 (09:03→10:32)
[2017-11-13 09:05] LABS: ALBUMIN 2.1 g/dl (3.4-5.0); ANION GAP 13 (8-16); CALCIUM 8.4 mg/dL (8.5-10.1); CHLORIDE 105 mmol/L (98-107); CO2 23 mmol/L (21-32); CREATININE 0.3 mg/dL (0.55-1.02); GLUCOSE,RANDOM 99 mg/dL (74-106); MAGNESIUM 1.9 mg/dL (1.8-2.4); PHOSPHOROUS 2.4 mg/dL (2.5-4.9); POTASSIUM 3.1 mmol/L (3.5-5.1); SGOT/AST 26 U/L (15-37); SGPT/ALT 30 U/L (12-78); SODIUM 141 mmol/L (136-145)
[2017-11-13 09:07] LABS: ALK PHOS 664 U/L (45-117); BILIRUBIN,TOTAL 1.8 mg/dL (0.2-1.0); TOT PROT 5.3 g/dl (6.4-8.2)
[2017-11-13 09:48] LABS: BLOOD UREA NITROGEN 2 mg/dL (7-18)
--- NOTE | 2017-11-13 09:52 | PN ---
Progress Note (short form) - Note Progress Note: Neurology HPI: 82F with PMH of polio s/p Right hip fusion, Right ankle fusion, chronic Right LE veous statis ulcer, htn, afib (on Eliquis), admitted to [facility] for ERCP/ cholecystectomy on 11/04/17. Today, c/o new onset Right arm weakness/tingling along with Right elbow pain, no trauma reported by patient. Code lillie was called , concern for possible CVA, CT head without acute changes, no bleed. Patient Not TPA candidate due to being on AC and recent surgery. Patient transferred to ICU, family at bedside, discussed with them again today. Ordered MRI brain to further evaluate for possible CVA and imaging did not show CVA. Chronic changes noted. Reported improvement in RUE movements and strength. Active Medications Acetaminophen (Ofirmev Injection -) 1,000 mg IVPB Q6H PRN PRN Reason: PAIN OR FEVER Diphenhydramine HCl (Benadryl -) 25 mg PO HS PRN PRN Reason: INSOMNIA Last Admin: 11/12/17 21:51 Dose: 25 mg Dextrose/Sodium Chloride (D5-Ns -) 1,000 mls @ 83 mls/hr IV ASDIR [facility] Last Admin: 11/13/17 06:04 Dose: 83 mls/hr Pantoprazole Sodium 160 mg/ (Dextrose) 290 mls @ 14.5 mls/hr IVPB Q20H [facility] Last Admin: 11/13/17 06:04 Dose: Not Given Piperacillin Sod/Tazobactam (Sod 4.5 gm/ Dextrose) 100 mls @ 200 mls/hr IVPB Q8H-IV [facility] Last Admin: 11/13/17 02:26 Dose: 200 mls/hr Methyl Salicylate (Peter-Wolff -) 1 applic TP BID [facility] Last Admin: 11/12/17 21:49 Dose: 1 applic Metoprolol Succinate (Toprol Xl -) 50 mg PO DAILY [facility] Nifedipine (Procardia Xl -) 90 mg PO DAILY [facility] Vital Signs Temperature 99.2 F 11/13/17 06:00 Pulse Rate 76 11/13/17 06:00 Respiratory Rate 18 11/13/17 06:00 Blood Pressure 125/76 11/13/17 06:00 O2 Sat by Pulse Oximetry (%) 98 11/12/17 21:00 General: AAOx3, NAD, no confusion Respiratory: CTAB, lungs clear CV: RRR, no murmurs appreciated GI: soft, nontender to palpation Neuro: 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 No able to raise UE for FTN testing MS: no creptius or deformity appreciated to Right elbow Ext: Pulses intact, no rashes Imaging: CT head reviewed MRI brain reviewed Plan: 82F with PMH of polio s/p Right hip fusion, Right ankle fusion, chronic Right LE veous statis ulcer, htn, afib (on Eliquis), admitted to [facility] for ERCP/ cholecystectomy on 11/04/17. Today, c/o new onset Right arm weakness/tingling along wqith Right elbow pain, no trauma reported by patient. James moreira was called, I spoke with hospitalist. Patient with possible CVA, CT head without acute changes, no bleed. Patient Not TPA candidate due to being on AC. Patient transferred to ICU. MRI brain without acute CVA BP goal < 130/90 as outpatient She is moving RUE with more dexterity and strength Physical therapy recommended On Eliquis, can continue, caution with further trauma Downgraded to floor status and stable
[2017-11-13] MEDS: METHYL SALICYLATE/MENTHOL OINT 30 GM TUBE TP SCH ×2 (10:22→21:27)
[2017-11-13] MEDS: NIFEdipine E.R. 90 MG TABLET (FP) PO SCH (10:22)
[2017-11-13] MEDS ORDERED: NAPH,MB-DB/K PH,MBDB POWDER PACKET PO ONE (13:00)
[2017-11-13] MEDS ORDERED: POTASSIUM CHLORIDE ORAL LIQUID 20 MEQ/15 ML PO ONE (13:00)
--- NOTE | 2017-11-13 13:48 | PN ---
Progress Note (short form) - Note Progress Note: Attending Surgeon POD #6 No c/o; tolerating liquids VSS AF abdomen-benign LFT's and bili continue to normalize IMP: doing well PLAN: Advance diet as tolerated and d/c planning. Kunal Chavarria MD FACS
[2017-11-13 13:49] LABS: HEMATOCRIT 27.4 % (32.4-45.2); HEMOGLOBIN 8.4 GM/dL (10.7-15.3); MCHC 30.8 g/dl (32.0-36.0); MEAN CELL VOLUME 87.6 fl (80-96); MEAN PLT VOLUME 9.2 fl (7.5-11.1); PLATELET COUNT 362 K/MM3 (134-434); RBC 3.13 M/mm3 (3.60-5.2); RDW 16.7 % (11.6-15.6); WHITE BLOOD COUNT 14.3 K/mm3 (4.0-10.0)
--- NOTE | 2017-11-13 14:32 | PN ---
Progress Note (short form) - Note Progress Note: PULMONARY Denies abdominal pain, nausea or vomiting. No fevers or chills. No shortness of breath or chest pain. Last Vital Signs Temp Pulse Resp BP Pulse Ox 97.6 F 83 22 116/50 98 11/13/17 14:26 11/13/17 14:26 11/13/17 14:26 11/13/17 14:26 11/12/17 21:00 Gen: NAD, less jaundiced Heart: RRR Lung: decreased breath sounds at the bases Abd: soft, nontender Ext: no edema CBC, BMP 11/13/17 13:35 11/13/17 07:47 Active Medications Acetaminophen (Ofirmev Injection -) 1,000 mg IVPB Q6H PRN PRN Reason: PAIN OR FEVER Diphenhydramine HCl (Benadryl -) 25 mg PO HS PRN PRN Reason: INSOMNIA Last Admin: 11/12/17 21:51 Dose: 25 mg Dextrose/Sodium Chloride (D5-Ns -) 1,000 mls @ 83 mls/hr IV ASDIR [facility] Last Admin: 11/13/17 06:04 Dose: 83 mls/hr Piperacillin Sod/Tazobactam (Sod 4.5 gm/ Dextrose) 100 mls @ 200 mls/hr IVPB Q8H-IV [facility] Last Admin: 11/13/17 11:03 Dose: 200 mls/hr Methyl Salicylate (Peter-Wolff -) 1 applic TP BID [facility] Last Admin: 11/13/17 10:22 Dose: 1 applic Metoprolol Succinate (Toprol Xl -) 50 mg PO DAILY [facility] Last Admin: 11/13/17 10:22 Dose: 50 mg Nifedipine (Procardia Xl -) 90 mg PO DAILY [facility] Last Admin: 11/13/17 10:22 Dose: 90 mg Pantoprazole Sodium (Protonix -) 20 mg PO DAILY [facility] A/P Choledocholithiasis with cholangitis s/p ERCP CBD stone removal on 11/05, lap manuel on 11/07 E.Coli UTI Atrial Fibrillation HTN - stone appears to have passed, monitor LFTs - antibiotics per ID - rate control - resume anticoagulation if no further invasive procedures planned - advance diet per GI - replete lytes - DVT prophylaxis
--- NOTE | 2017-11-13 15:44 | PN ---
Progress Note, Physician History of Present Illness: Awake and alert Denies abdominal pain , N/V Afebrile; WBC remains elevated LFTs improved TBR 1.8 AP 664 - Current Medication List Current Medications: Active Medications Acetaminophen (Ofirmev Injection -) 1,000 mg IVPB Q6H PRN PRN Reason: PAIN OR FEVER Diphenhydramine HCl (Benadryl -) 25 mg PO HS PRN PRN Reason: INSOMNIA Last Admin: 11/12/17 21:51 Dose: 25 mg Dextrose/Sodium Chloride (D5-Ns -) 1,000 mls @ 83 mls/hr IV [facility] Last Admin: 11/13/17 06:04 Dose: 83 mls/hr Piperacillin Sod/Tazobactam (Sod 4.5 gm/ Dextrose) 100 mls @ 200 mls/hr IVPB Q8H-IV [facility] Last Admin: 11/13/17 11:03 Dose: 200 mls/hr Methyl Salicylate (Peter-Wolff -) 1 applic TP BID [facility] Last Admin: 11/13/17 10:22 Dose: 1 applic Metoprolol Succinate (Toprol Xl -) 50 mg PO DAILY [facility] Last Admin: 11/13/17 10:22 Dose: 50 mg Nifedipine (Procardia Xl -) 90 mg PO DAILY [facility] Last Admin: 11/13/17 10:22 Dose: 90 mg Pantoprazole Sodium (Protonix -) 20 mg PO DAILY [facility] - Objective Vital Signs: Vital Signs Temperature 97.6 F 11/13/17 14:26 Pulse Rate 83 11/13/17 14:26 Respiratory Rate 22 11/13/17 14:26 Blood Pressure 116/50 11/13/17 14:26 O2 Sat by Pulse Oximetry (%) 98 11/13/17 09:00 Cardiovascular: Yes: Regular Rate and Rhythm, S1, S2 Respiratory: Yes: CTA Bilaterally Gastrointestinal: Yes: Normal Bowel Sounds, Soft. No: Tenderness Edema: No Labs: CBC, BMP 11/13/17 13:35 11/13/17 07:47 INR, PTT INR 1.04 (0.82-1.09) 11/12/17 06:45 Assessment/Plan S/P laparoscopic cholecystectomy (11/07) /ERCP (11/05) LFTs improving Discussed with GI D/C Zosyn. Observe off antibiotics
--- NOTE | 2017-11-13 16:20 | PN ---
GI Progress Note Subjective: No abdominal pain No acute events No melena - Objective Vital Signs: Vital Signs Temperature 97.6 F 11/13/17 14:26 Pulse Rate 83 11/13/17 14:26 Respiratory Rate 22 11/13/17 14:26 Blood Pressure 116/50 11/13/17 14:26 O2 Sat by Pulse Oximetry (%) 98 11/13/17 09:00 Constitutional: Calm Eyes: No: Sclera Icterus Cardiovascular: Yes: Regular Rate and Rhythm Gastrointestinal Inspection: No: Distention ...Auscultate: Yes: Normoactive Bowel Sounds ...Palpate: No: Hepatomegaly, Splenomegaly, Tenderness Neurological: Yes: Alert Labs: CBC, BMP 11/13/17 13:35 11/13/17 07:47 INR, PTT INR 1.04 (0.82-1.09) 11/12/17 06:45 Hepatic Panel Total Bilirubin 1.8 mg/dL (0.2-1.0) H 11/13/17 07:47 Direct Bilirubin 1.3 mg/dL (0.0-0.2) H 11/13/17 07:47 AST 26 U/L (15-37) 11/13/17 07:47 ALT 30 U/L (12-78) 11/13/17 07:47 Alkaline Phosphatase 664 U/L (45-117) H 11/13/17 07:47 Albumin 2.1 g/dl (3.4-5.0) L 11/13/17 07:47 Problem List - Problems (1) Jaundice Assessment/Plan: Suspected passed clot / CBD stone: Recent MRCP unrevealing and LFTs improving - Abx being discontinued today - Monitor LFTs Code(s): R17 - UNSPECIFIED JAUNDICE
--- NOTE | 2017-11-13 18:52 | PN ---
Physical Exam: SUBJECTIVE: Patient seen and examined. Wants to do a few days at rehab OBJECTIVE: Vital Signs Period Temp Pulse Resp BP Sys/Sequeira Pulse Ox Last 24 Hr 97.4 F-99.2 F 65-83 15-22 116-131/50-80 98-98 PE Neuro: alert, awake, cn 2-12intact Pulm: CTAB CV: s1 s2 irregular rhythm regular rate Abd: abd incisions w/ steri strips dried blood, no erythema, soft + bc Ext: RLE chronic skin change, no le edema Laboratory Results - last 24 hr 11/12/17 11/13/17 11/13/17 21:30 07:47 07:47 WBC 15.4 H 15.4 H RBC 3.27 L 3.53 L Hgb 8.9 L 9.6 L Hct 27.5 L 29.7 L MCV 84.1 84.2 MCH 27.3 27.3 MCHC 32.5 32.4 RDW 16.1 H 16.0 H Plt Count 374 377 MPV 9.3 9.3 Sodium 141 Potassium 3.1 L Chloride 105 Carbon Dioxide 23 Anion Gap 13 BUN 2 L* Creatinine 0.3 L Creat Clearance w eGFR > 60 Random Glucose 99 Calcium 8.4 L Phosphorus 2.4 L Magnesium 1.9 Total Bilirubin 1.8 H Direct Bilirubin AST 26 ALT 30 Alkaline Phosphatase 664 H Total Protein 5.3 L Albumin 2.1 L 11/13/17 11/13/17 07:47 13:35 WBC 14.3 H RBC 3.13 L Hgb 8.4 L D Hct 27.4 L MCV 87.6 MCH 27.0 MCHC 30.8 L RDW 16.7 H Plt Count 362 MPV 9.2 Sodium Potassium Chloride Carbon Dioxide Anion Gap BUN Creatinine Creat Clearance w eGFR Random Glucose Calcium Phosphorus Magnesium Total Bilirubin Direct Bilirubin 1.3 H AST ALT Alkaline Phosphatase Total Protein Albumin Active Medications Generic Name Dose Route Start Last Admin Trade Name Freq PRN Reason Stop Dose Admin Acetaminophen 1,000 mg 11/12/17 18:24 Ofirmev Injection - IVPB Q6H PRN PAIN OR FEVER Diphenhydramine HCl 25 mg 11/12/17 22:00 11/12/17 21:51 Benadryl - PO 25 mg HS PRN Administration INSOMNIA Dextrose/Sodium Chloride 1,000 mls @ 83 mls/hr 11/12/17 18:24 11/13/17 06:04 D5-Ns - IV 83 mls/hr [facility] Administration Methyl Salicylate 1 applic 11/12/17 22:00 11/13/17 10:22 Peter-Wolff - TP 1 applic BID [facility] Administration Metoprolol Succinate 50 mg 11/13/17 10:00 11/13/17 10:22 Toprol Xl - PO 50 mg DAILY [facility] Administration Nifedipine 90 mg 11/13/17 10:00 11/13/17 10:22 Procardia Xl - PO 90 mg DAILY [facility] Administration Pantoprazole Sodium 20 mg 11/14/17 10:00 Protonix - PO DAILY [facility] Assessment: 82 year old female with PMH significant for HTN, afib on Eliquis, polio s/p right hip and right ankle fusions, and chronic RLE venous stasis ulcer. On 11/03/17 she presented to the [facility] ED with a complaint of painless jaundice and foul-smelling diarrhea x 3 days. On 11/03 underwent ERCP and sphincterotomy; stone and sludge extracted with lap manuel on 11/07, on HIDA scan showed CBD obstruction, ERCP attempted and aborted due to large blood clot and interductal bleeding, CTA showed distal CBD stone. Plan: 1. Choledocholithiasis with cholangitis and biliary tract obstruction - Per discussion with radiology and GI, 11/11 MRCP shows possible stone clearing - Bili normalizing - Off abx; to observe - Advance diet 2. Melenic stool? - Stool occult ordered - Montior hgb, mild drop 3. Intraductal papillary mucinous neoplasm - Seen on MRI - Ca19-9 pending - Will need outpatient follow up 4. RUE weakness - Likely right shoulder arthritis r/o rotator cuff injury per ortho 5. Atrial fibrillation, rate controlled - Continue Toprol XL - Restart eliquis after r/o stool occult 6. HTN - Continue Toprol XL 7. E coli UTI - S/p ceftriaxone x 5 days 8. DVT ppx - SCDS Visit type - Emergency Visit Emergency Visit: Yes ED Registration Date: 11/03/17 Care time: The patient presented to the Emergency Department on the above date and was hospitalized for further evaluation of their emergent condition. - New Patient This patient is new to me today: No - Critical Care Critical Care patient: No
[2017-11-13 21:17] LABS: HEMATOCRIT 28.6 % (32.4-45.2); HEMOGLOBIN 9.1 GM/dL (10.7-15.3); MCH 27.4 pg (25.7-33.7); MCHC 31.9 g/dl (32.0-36.0); MEAN CELL VOLUME 85.9 fl (80-96); MEAN PLT VOLUME 9.7 fl (7.5-11.1); PLATELET COUNT 384 K/MM3 (134-434); RBC 3.33 M/mm3 (3.60-5.2); RDW 16.3 % (11.6-15.6); WHITE BLOOD COUNT 14.8 K/mm3 (4.0-10.0)
[2017-11-13] MEDS: diphenhydrAMINE HCL 25 MG CAPSULE (FP) PO PRN (21:30)
[2017-11-14 08:07] LABS: SERUM IRON SATURATION 21 (15-55); TOTAL IRON BINDING CAPACITY 178 (250-450); UIBC 140 ug/dL (118-369)
[2017-11-14] MEDS ORDERED: PT OWN MED DRAWER 7, Y5N ONE (09:27)
[2017-11-14] MEDS: AMINO ACIDS/PROTEIN HYDROLYS 30 ML LIQUID.PKT PO SCH ×2 (09:57→17:16)
[2017-11-14] MEDS: NIFEdipine E.R. 90 MG TABLET (FP) PO SCH (09:57)
[2017-11-14] MEDS ORDERED: PANTOPRAZOLE 20 MG TABLET (FP) PO SCH (10:00)
[2017-11-14] MEDS: METHYL SALICYLATE/MENTHOL OINT 30 GM TUBE TP SCH (10:05)
--- NOTE | 2017-11-14 10:05 | PN ---
Progress Note (short form) - Note Progress Note: Neurology HPI: 82F with PMH of polio s/p Right hip fusion, Right ankle fusion, chronic Right LE veous statis ulcer, htn, afib (on Eliquis), admitted to [facility] for ERCP/ cholecystectomy on 11/04/17. Today, c/o new onset Right arm weakness/tingling along with Right elbow pain, no trauma reported by patient. Code lillie was called , concern for possible CVA, CT head without acute changes, no bleed. Patient Not TPA candidate due to being on AC and recent surgery. Ordered MRI brain to further evaluate for possible CVA and imaging did not show CVA. Chronic changes noted. Reported improvement in RUE movements and strength. Has been neurologically stable, being planned for placement. Active Medications Acetaminophen (Ofirmev Injection -) 1,000 mg IVPB Q6H PRN PRN Reason: PAIN OR FEVER Amino Acids (Prosource No Carb Liquid Pkt) 30 ml PO BID@0800,1730 [facility] Last Admin: 11/14/17 09:57 Dose: 30 ml Diphenhydramine HCl (Benadryl -) 25 mg PO HS PRN PRN Reason: INSOMNIA Last Admin: 11/13/17 21:30 Dose: 25 mg Dextrose/Sodium Chloride (D5-Ns -) 1,000 mls @ 83 mls/hr IV ASDIR [facility] Last Admin: 11/13/17 19:00 Dose: Not Given Methyl Salicylate (Peter-Wolff -) 1 applic TP BID [facility] Last Admin: 11/13/17 21:27 Dose: 1 applic Metoprolol Succinate (Toprol Xl -) 50 mg PO DAILY [facility] Last Admin: 11/14/17 09:57 Dose: 50 mg Nifedipine (Procardia Xl -) 90 mg PO DAILY [facility] Last Admin: 11/14/17 09:57 Dose: 90 mg Pantoprazole Sodium (Protonix -) 20 mg PO DAILY [facility] Last Admin: 11/14/17 09:58 Dose: 20 mg Vital Signs Temperature 97.9 F 11/14/17 09:55 Pulse Rate 78 11/14/17 09:55 Respiratory Rate 18 11/14/17 09:55 Blood Pressure 122/73 11/14/17 09:55 O2 Sat by Pulse Oximetry (%) 94 L 11/13/17 21:00 General: AAOx3, NAD, no confusion Respiratory: CTAB, lungs clear CV: RRR, no murmurs appreciated GI: soft, nontender to palpation Neuro: 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 No able to raise UE for FTN testing MS: no creptius or deformity appreciated to Right elbow Ext: Pulses intact, no rashes CBCD WBC 14.8 K/mm3 (4.0-10.0) H 11/13/17 20:00 RBC 3.33 M/mm3 (3.60-5.2) L 11/13/17 20:00 Hgb 9.1 GM/dL (10.7-15.3) L 11/13/17 20:00 Hct 28.6 % (32.4-45.2) L 11/13/17 20:00 MCV 85.9 fl (80-96) 11/13/17 20:00 MCHC 31.9 g/dl (32.0-36.0) L 11/13/17 20:00 RDW 16.3 % (11.6-15.6) H 11/13/17 20:00 Plt Count 384 K/MM3 (134-434) 11/13/17 20:00 MPV 9.7 fl (7.5-11.1) 11/13/17 20:00 CMP Sodium 141 mmol/L (136-145) 11/13/17 07:47 Potassium 3.1 mmol/L (3.5-5.1) L 11/13/17 07:47 Chloride 105 mmol/L (98-107) 11/13/17 07:47 Carbon Dioxide 23 mmol/L (21-32) 11/13/17 07:47 Anion Gap 13 (8-16) 11/13/17 07:47 BUN 2 mg/dL (7-18) L* 11/13/17 07:47 Creatinine 0.3 mg/dL (0.55-1.02) L 11/13/17 07:47 Creat Clearance w eGFR > 60 (>60) 11/13/17 07:47 Calcium 8.4 mg/dL (8.5-10.1) L 11/13/17 07:47 Total Bilirubin 1.8 mg/dL (0.2-1.0) H 11/13/17 07:47 AST 26 U/L (15-37) 11/13/17 07:47 ALT 30 U/L (12-78) 11/13/17 07:47 Alkaline Phosphatase 664 U/L (45-117) H 11/13/17 07:47 Total Protein 5.3 g/dl (6.4-8.2) L 11/13/17 07:47 Albumin 2.1 g/dl (3.4-5.0) L 11/13/17 07:47 Imaging: CT head reviewed MRI brain reviewed Plan: 82F with PMH of polio s/p Right hip fusion, Right ankle fusion, chronic Right LE veous statis ulcer, htn, afib (on Eliquis), admitted to [facility] for ERCP/ cholecystectomy on 11/04/17. Today, c/o new onset Right arm weakness/tingling along wqith Right elbow pain, no trauma reported by patient. CT head without acute changes, no bleed. Patient Not TPA candidate due to being on AC. Patient transferred to ICU since then downgraded to floor. MRI brain without acute CVA BP goal < 130/90 as outpatient She is moving RUE with more dexterity and strength Physical therapy recommended On Eliquis, can continue, caution with further trauma Neurologically stable No further rec'd at this time
[2017-11-14 11:26] LABS: HEMOGLOBIN 10.2 GM/dL (10.7-15.3); MCH 27.1 pg (25.7-33.7); MCHC 31.9 g/dl (32.0-36.0); MEAN CELL VOLUME 84.8 fl (80-96); MEAN PLT VOLUME 8.7 fl (7.5-11.1); PLATELET COUNT 453 K/MM3 (134-434); RBC 3.77 M/mm3 (3.60-5.2); RDW 16.1 % (11.6-15.6); WHITE BLOOD COUNT 18.4 K/mm3 (4.0-10.0)
[2017-11-14 11:57] LABS: ANION GAP 13 (8-16); BLOOD UREA NITROGEN 3 mg/dL (7-18); CALCIUM 8.8 mg/dL (8.5-10.1); CHLORIDE 102 mmol/L (98-107); CO2 24 mmol/L (21-32); CREATININE 0.3 mg/dL (0.55-1.02); GLUCOSE,RANDOM 124 mg/dL (74-106); PHOSPHOROUS 3.1 mg/dL (2.5-4.9); POTASSIUM 3.5 mmol/L (3.5-5.1); SODIUM 139 mmol/L (136-145)
[2017-11-14] MEDS ORDERED: ACETAMINOPHEN 325 MG TABLET (FP) PO PRN (12:39)
--- NOTE | 2017-11-14 14:02 | DS ---
Physical Exam: SUBJECTIVE: Patient seen and examined. She feels fine, ready to leave. pt and family report chronic RLE swelling and redness for years. OBJECTIVE: Vital Signs Period Temp Pulse Resp BP Sys/Sequeira Pulse Ox Last 24 Hr 97.4 F-99.4 F 63-83 16-22 116-144/50-85 94-97 PE Neuro: alert, awake, cn 2-12intact Pulm: CTAB CV: s1 s2 irregular rhythm regular rate Abd: abd incisions w/ steri strips dried blood, no erythema, soft + bc Ext: RLE chronic skin change, RLE pitting edema Laboratory Results - last 24 hr 11/10/17 11/12/17 11/13/17 16:30 06:45 20:00 WBC 14.8 H RBC 3.33 L Hgb 9.1 L Hct 28.6 L MCV 85.9 MCH 27.4 MCHC 31.9 L RDW 16.3 H Plt Count 384 MPV 9.7 Sodium Potassium Chloride Carbon Dioxide Anion Gap BUN Creatinine Random Glucose Calcium Phosphorus Iron 38 TIBC 178 L Iron Saturation 21 Crossmatch See Detail 11/14/17 11/14/17 11:19 11:19 WBC 18.4 H RBC 3.77 Hgb 10.2 L D Hct 32.0 L MCV 84.8 MCH 27.1 MCHC 31.9 L RDW 16.1 H Plt Count 453 H MPV 8.7 D Sodium 139 Potassium 3.5 Chloride 102 Carbon Dioxide 24 Anion Gap 13 BUN 3 L Creatinine 0.3 L Random Glucose 124 H Calcium 8.8 Phosphorus 3.1 Iron TIBC Iron Saturation Crossmatch HOSPITAL COURSE: Date of Admission:11/03/17 Date of Discharge: 11/14/17 Minutes to complete discharge: 37 Discharge Summary Reason For Visit: OBSTRUCTIVE JAUNDICE Current Active Problems Anticoagulant long-term use (Acute) Choledocholithiasis (Acute) History of anticoagulant use (Acute) Jaundice (Acute) Jaundice (Acute) Pancreatic cyst (Acute) Right shoulder pain (Acute) Hospital Course: Initial Hospital Course: Briefly, 82 year-old female with PMH signficant for HTN, afib on Eliquis, polio s/p right hip and right ankle fusions, and chronic RLE venous stasis ulcer. On she presented to the [facility] ED with a complaint of painless jaundice and foul-smelling diarrhea x 3 days. No previous episodes, no history of pancreaticobiliary problems. Subsequent hospital course/Progress Note/DC summary: Plan: 1. Choledocholithiasis with cholangitis and biliary tract obstruction -11/03 ERCP and sphincterotomy; stone and sludge extracted -11/07 lap manuel -11/08 POD #1 Tot bili 1.9 -11/09 POD #2 Tot bili 3.2 -11/10 HIDA: high grade CBD obstruction -11/10 ERCP attempted and aborted; large blood clot visualized; Lovenox stopped; Vit K x 1 dose; 2units FFP -11/10 CTA: 0.5cm density/calculus within distal CBD; CBD dilated 1.7cm; no definite contrast extravasation -11/11 ERCP: obstruction CBD -11/11 MRCP shows possible stone clearing -11/12 bili levels down trend and continue to fall through day of discharge - Hgb stable on dc, can resume eliquis - Stable off abx (zosyn), wbc chronic elevation, no acute signs of infection on dc/no fever, no pain - Follow up with GI and surgery in 2 weeks 2. RUE weakness - Likely right shoulder arthritis r/o rotator cuff injury per ortho 3. Atrial fibrillation, rate controlled - Continue Toprol XL - Resume Eliquis 2.5mg BID 4. HTN - Continue Toprol XL - Procardia xl 90mg daily 5. E coli UTI - S/p ceftriaxone x 5 days Dispo: - Rehab transfer, with above follow up - Pt and family aware and agree to above plan Condition: Stable - Instructions Diet, Activity, Other Instructions: Please return to the ED for any new, persistent, or worsening symptoms. Follow up with your PCP in 1 week Take home medications as directed Followup with GI and Surgery when discharged from rehab Referrals: Kunal Chavarria MD [Staff Physician] - Umang Marks MD [Primary Care Provider] - Michael Bejarano MD [Staff Physician] - 2 Weeks ( To follow up MRI findings of intraductal neoplasm and ca 19-9 ) Disposition: [facility] - Home Medications Comprehensive Discharge Medication List: Ambulatory Orders Amino Acids/Protein Hydrolys [Prosource No Carb Liquid Pkt] 30 ml PO BID@0800, 1730 packet 11/14/17 Apixaban [Eliquis -] 2.5 mg PO BID #60 tablet 11/14/17 Pantoprazole Sodium [Protonix -] 20 mg PO DAILY tablet.ec 11/14/17 This patient is new to me today: No Emergency Visit: Yes ED Registration Date: 11/03/17 Care time: The patient presented to the Emergency Department on the above date and was hospitalized for further evaluation of their emergent condition. Critical Care patient: No - Discharge Referral Referred to [facility] Med P.C.: No
[2017-11-14 15:15] VITALS: BP 146/72; PULSE 84; TEMP 99.2
== END 2017-11-14 17:55 | DRG 417 ==
LOC: SUPCPDRO 12:16 → FER 12:16 → FM/S 18:52 → J7W 11-04 22:01 → JICU 11-08 11:59 → J5S 11-12 19:00
PROVIDERS: ADMIT Internal Medicine; ATTEND Nurse Practitioner Acute Care
PROC: 0FC98ZZ Extirpation of Matter from Common Bile Duct, Via Natural or Artificial Opening Endoscopic (ICD-10-PCS; 2017-11-05)
PROC: BF10YZZ Fluoroscopy of Bile Ducts using Other Contrast (ICD-10-PCS; 2017-11-05)
PROC: 0FT44ZZ Resection of Gallbladder, Percutaneous Endoscopic Approach (ICD-10-PCS; principal; 2017-11-07 10:00)
PROC: 30233L1 Transfusion of Nonautologous Fresh Plasma into Peripheral Vein, Percutaneous Approach (ICD-10-PCS; 2017-11-10)
PROC: 30233K1 Transfusion of Nonautologous Frozen Plasma into Peripheral Vein, Percutaneous Approach (ICD-10-PCS; 2017-11-10)
PROC: 0FJB8ZZ Inspection of Hepatobiliary Duct, Via Natural or Artificial Opening Endoscopic (ICD-10-PCS; 2017-11-11)
DX: K80.10 Calculus of gallbladder with chronic cholecystitis without obstruction (principal); K85.90 Acute pancreatitis without necrosis or infection, unspecified; K83.1 Obstruction of bile duct; N39.0 Urinary tract infection, site not specified; K86.2 Cyst of pancreas; L03.115 Cellulitis of right lower limb; B96.20 Unspecified Escherichia coli [E. coli] as the cause of diseases classified elsewhere; I48.91 Unspecified atrial fibrillation; I10 Essential (primary) hypertension; D72.829 Elevated white blood cell count, unspecified
CPT/HCPCS: 36415; 36430; 70450-TC; 70551-TC; 71045-TC-FY; 73030-TC-RT-FY; 74174-TC; 74181-TC; 74182-TC; 74330-TC; 76000-TC-FY; 78227-TC; 80048; 80053; 80061; 80076; 81003; 81015; 82150; 82248; 82550; 82728; 82962; 83540; 83550; 83605; 83690; 83721; 83735; 84100; 84484; 84550; 85025; 85027; 85044; 85610; 86140; 86301; 86850; 86900; 86901; 86922; 87040; 87081; 87086; 87186; 87324; 87449; 88304-TC; 93005; 93010; 93306-TC; 93880-TC; 94760; 97116-GP; 97162-GP; 99283-25; A9537; P9017

== ENCOUNTER 2018-07-06 17:21 | Emergency (ER) | payer OTHER, MEDICARE ==
[2018-07-06] MEDS ORDERED: LIDOCAINE HCL 2% JELLY (5 ML/TUBE) TP ONE (18:01)
[2018-07-06] MEDS ORDERED: SODIUM PHOSPHATE/NA BIPHOS 133 ML ENEMA PR ONE (18:01)
--- NOTE | 2018-07-06 18:05 | PDOC ---
History of Present Illness - General History Source: Patient Exam Limitations: No Limitations - History of Present Illness Travel History: No Initial Comments: 07/06/18 18:02 83y F hx of polio presents with constipation. pt states she had approx 7 days of constipation, the past 2 days she has had increasing watery stool and an occasional stool ball. pt denies any abdo pain currently but notse that she occasionally ahs a cramp also ntose a burning sensation on her buttock. pt denies any fever/chills, n/v. +hx of abd surgery with gall bladder removal. pt denie sany cp, sob, bloody stool, ercent travel or sick contacts does not take any narcotic pain medications Constitutional - no reported Fever, Chills, Respiratory: no reported sob, Cardiac: no reported chest pain, Abd/GI: +constpation, diarrhea, no reported abd pain, nausea, vomiting, blood per rectum, melena, diarrhea : no reported dysuria, frequency, discharge Musculskelatal - no reported back pain, skin - no reported bruising, erythema, rash neurological: no reported headache, numbness, focal weakness, tingling, ataxia, hematologic: no reported easy bruising, easy bleeding GENERAL: The patient is awake, alert, and fully oriented, Nontoxic - in no acute distress. LUNGS: Breath sounds equal, clear to auscultation bilaterally. No wheezes, no rhonchi, no rales. HEART: Regular rate and rhythm, normal S1 and S2 without murmur, rub or gallop. ABDOMEN: Soft, nontender, normoactive bowel sounds. No guarding, no rebound. No CVA tenderness RECTAL: +hermes like stool ball in the rectal vault, raw area around buttock EXTREMITIES: Normal range of motion, no edema. NEUROLOGICAL: No facial assymetry, Normal speech, no movement of b/l LE PSYCH: Normal mood, normal affect. SKIN: Warm, Dry, normal turgor, suspect stool ball causing overflow diarrhea stool ball was manually disempacted will give fleet enema pt with pain on rash, suspect due to persistent moistness <Abiel Mariee - Last Filed: 07/06/18 18:59> <Indira Cesar - Last Filed: 07/06/18 21:51> - General Chief Complaint: Constipation Stated Complaint: constipation Time Seen by Provider: 07/06/18 17:25 Past History - Past Medical History Cardiac Disorders: Yes (afib- eliquis) COPD: No HTN: Yes Other medical history: polio - Surgical History Cholecystectomy: Yes Orthopedic Surgery: Yes (hip/foot fusion) - Suicide/Smoking/Psychosocial Hx Smoking History: Former smoker Have you smoked in the past 12 months: No If you are a former smoker, when did you quit?: 47 YEARS AGO Information on smoking cessation initiated: No Hx Alcohol Use: No Drug/Substance Use Hx: No Substance Use Type: None Hx Substance Use Treatment: No <Abiel Mariee - Last Filed: 07/06/18 18:59> <Indira Cesar - Last Filed: 07/06/18 21:51> - Past Medical History Allergies/Adverse Reactions: Allergies Allergy/AdvReac Type Severity Reaction Status Date / Time famciclovir [From Famvir] Allergy Verified 07/06/18 17:59 Sulfa (Sulfonamide Allergy Verified 07/06/18 17:59 Antibiotics) Home Medications: Ambulatory Orders Amino Acids/Protein Hydrolys [Prosource No Carb Liquid Pkt] 30 ml PO BID@0800, 1730 packet 11/14/17 Apixaban [Eliquis -] 2.5 mg PO BID #60 tablet 11/14/17 Pantoprazole Sodium [Protonix -] 20 mg PO DAILY tablet.ec 11/14/17 *Physical Exam - Vital Signs Last Vital Signs Temp Pulse Resp BP Pulse Ox 98.1 F 65 20 125/75 100 07/06/18 17:21 07/06/18 17:21 07/06/18 17:21 07/06/18 17:21 07/06/18 17:21 <Abiel Mariee - Last Filed: 07/06/18 18:59> - Vital Signs Last Vital Signs Temp Pulse Resp BP Pulse Ox 98.1 F 65 20 125/75 100 07/06/18 17:21 07/06/18 17:21 07/06/18 17:21 07/06/18 17:21 07/06/18 17:21 <Indira Cesar - Last Filed: 07/06/18 21:51> ED Treatment Course - Medications Given in the ED: ED Medications Discontinued Medications Generic Name Dose Route Start Last Admin Trade Name Freq PRN Reason Stop Dose Admin Lidocaine HCl 1 applic 07/06/18 18:01 07/06/18 19:23 Xylocaine 2% Jelly TP 07/06/18 18:02 Not Given ONCE ONE Sodium Phosphate 133 ml 07/06/18 18:01 07/06/18 18:30 Fleet Adult Rectal Enema - [place] 07/06/18 18:02 133 ml ONCE ONE Administration <Indira Cesar - Last Filed: 07/06/18 21:51> *DC/Admit/Observation/Transfer <JayleneAbiel piper - Last Filed: 07/06/18 18:59> <Indira Cesar - Last Filed: 07/06/18 21:51> Diagnosis at time of Disposition: Constipation Qualifiers: Constipation type: other constipation type Qualified Code(s): K59.09 - Other constipation - Discharge Dispostion Disposition: HOME Condition at time of disposition: Stable - Referrals Referrals: Ellis Nieves MD [Staff Physician] - Antonio Reynolds MD [Staff Physician] - - Patient Instructions Printed Discharge Instructions: DI for Constipation Additional Instructions: Return to the emergency department immediately with ANY new, persistent or worsening symptoms including worsening abdominal pain, fevers, chills, inability to tolerate oral intake or any other concerns. Please increase your water intake, increasing physical activity and increase her fiber intake You MUST call and follow up with your doctor tomorrow for further evaluation of your symptoms. Your emergency department visit is not complete without a followup with your doctor for reevaluation. Results were discussed with you. Please make sure your doctor reviews the results of your emergency evaluation. Print Language: FRISIAN
[2018-07-06 19:00] VITALS: BP 125/75; PULSE 65; TEMP 98.1; BMI 23.4
--- NOTE | 2018-07-06 21:50 | PDOC ---
*Physical Exam - Vital Signs Last Vital Signs Temp Pulse Resp BP Pulse Ox 98.1 F 65 20 125/75 100 07/06/18 17:21 07/06/18 17:21 07/06/18 17:21 07/06/18 17:21 07/06/18 17:21 ED Treatment Course - Medications Given in the ED: ED Medications Discontinued Medications Generic Name Dose Route Start Last Admin Trade Name Jonathan PRN Reason Stop Dose Admin Lidocaine HCl 1 applic 07/06/18 18:01 07/06/18 19:23 Xylocaine 2% Jelly TP 07/06/18 18:02 Not Given ONCE ONE Sodium Phosphate 133 ml 07/06/18 18:01 07/06/18 18:30 Fleet Adult Rectal Enema - OR 07/06/18 18:02 133 ml ONCE ONE Administration Progress Note - Progress Note Progress Note: Care of this patient received from . The patient reports some passage of stool after fleets enema. Patient wishes to be discharged to continue fleets enema at home. She also has used mag citrate at home in the past which daughter states has been effective for her. Patient will be discharged with instructions as per *DC/Admit/Observation/Transfer Diagnosis at time of Disposition: Constipation Qualifiers: Constipation type: other constipation type Qualified Code(s): K59.09 - Other constipation - Discharge Dispostion Disposition: HOME Condition at time of disposition: Stable - Referrals Referrals: Ellis Nieves MD [Staff Physician] - Antonio Reynolds MD [Staff Physician] - - Patient Instructions Printed Discharge Instructions: DI for Constipation Additional Instructions: Return to the emergency department immediately with ANY new, persistent or worsening symptoms including worsening abdominal pain, fevers, chills, inability to tolerate oral intake or any other concerns. Please increase your water intake, increasing physical activity and increase her fiber intake You MUST call and follow up with your doctor tomorrow for further evaluation of your symptoms. Your emergency department visit is not complete without a followup with your doctor for reevaluation. Results were discussed with you. Please make sure your doctor reviews the results of your emergency evaluation. Print Language: TURKMEN - Post Discharge Activity
== END 2018-07-06 21:59 | disposition home or self-care (01) ==
LOC: FER 17:21
DX: K59.09 Other constipation (principal); I10 Essential (primary) hypertension; I48.91 Unspecified atrial fibrillation; Z79.01 Long term (current) use of anticoagulants; Z87.891 Personal history of nicotine dependence
CPT/HCPCS: 99282-25

== ENCOUNTER 2021-06-03 11:15 | Inpatient (IN) | payer OTHER, MEDICARE ==
[2021-06-03] MEDS ORDERED: SODIUM PHOSPHATE/NA BIPHOS 133 ML ENEMA PR ONE (11:39)
[2021-06-03] MEDS ORDERED: LACTATED RINGERS SOLUTION 1000 ML INFUS.BAG IV ONE (11:53)
[2021-06-03] MEDS ORDERED: ACETAMINOPHEN 1000 MG/100 ML VIAL (NON FORMULARY) IVPB ONE (11:53)
[2021-06-03] MEDS ORDERED: CEFTRIAXONE 1 GM in DEXTROSE 5%-WATER - 100 ML IVPB ONE (11:55)
[2021-06-03] MEDS ORDERED: VANCOMYCIN 1 GM in D5W (PRE-DOCKED) 1,000 MG/250 ML IVPB ONE (11:55)
[2021-06-03] MEDS ORDERED: ACETAMINOPHEN INJECTION 100 ML IVPB ONE (11:57)
[2021-06-03] MEDS ORDERED: cefTRIAXone SODIUM 1 GM VIAL ONE (11:57)
[2021-06-03 12:12] LABS: HEMATOCRIT 40.9 % (32.4-45.2); HEMOGLOBIN 13.2 GM/dl (10.7-15.3); MCH 27.2 pg (25.7-33.7); MCHC 32.2 g/dl (32.0-36.0); MEAN CELL VOLUME 84.4 fl (80-96); MEAN PLT VOLUME 9.2 fl (7.5-11.1); PLATELET COUNT 288 10^3/uL (134-434); RBC 4.85 M/mm3 (3.60-5.2); RDW 16.4 % (11.6-15.6); WHITE BLOOD COUNT 20.5 K/mm3 (4.0-10.8)
[2021-06-03 12:19] LABS: ACTIVATED PTT 28.5 SECONDS (25.2-36.5); ALBUMIN 3.1 g/dl (3.4-5.0); BILIRUBIN,TOTAL 1.2 mg/dl (0.2-1); CALCIUM 8.8 mg/dl (8.5-10); CREATININE 0.6 mg/dl (0.55-1.3); MAGNESIUM 1.9 mg/dL (1.8-2.4); TOT PROT 6.4 g/dl (6.4-8.2)
[2021-06-03 12:24] LABS: INR 1.28 (0.82-1.09); PROTHROMBIN TIME (PATIENT) 14.1 SEC (10.2-13.0)
[2021-06-03 13:46] LABS: EPITHELIAL CELLS MODERATE /hpf
[2021-06-03] MEDS ORDERED: VANCOMYCIN 1,000 MG VIAL (RESTRICTED TO ID ONLY) ONE (14:05)
[2021-06-03] MEDS ORDERED: DOCUSATE SODIUM 100 MG CAPSULE (FP) PO PRN (14:20)
[2021-06-03 14:25] LABS: LACTIC ACID 2.5 mmol/L (0.4-2.0)
[2021-06-03] MEDS: SODIUM CHLORIDE 1,000 ML IV SCH (15:00)
[2021-06-03] MEDS ORDERED: BISACODYL 10 MG SUPP.RECT PR PRN (15:29)
[2021-06-03 17:14] LABS: ANISOCYTOSIS 1+; PLATELET ESTIMATE ADEQUATE; TEAR DROP CELLS 1+
[2021-06-03] MEDS ORDERED: PIPERACILLIN/TAZOB 3.375 GM 3.375 GM in DEXTROSE 5%-WATER - 50 ML IVPB SCH (18:00)
[2021-06-03] MEDS ORDERED: DEXTROSE 5%-WATER - 50 ML IVPB ONE (18:25)
[2021-06-03] MEDS ORDERED: PIPERACILLIN/TAZOBACTAM 3.375 GM VIAL IVPB ONE (18:25)
[2021-06-03] MEDS: POLYETHYLENE GLYCOL (HEALTHYLAX) 3350 17 GM PACKET PO SCH (18:28)
[2021-06-03] MEDS: PIPERACILLIN/TAZOB 3.375 GM 3.375 GM in DEXTROSE 5%-WATER - 50 ML IVPB SCH (18:29)
[2021-06-03] MEDS ORDERED: REFRIGERATED ANITBIOTICS ONE (21:46)
[2021-06-03] MEDS ORDERED: VANCOMYCIN 1 GRAM (PRE-DOCKED) 1,000 MG/250 ML BAG IVPB ONE (22:00)
[2021-06-03] MEDS ORDERED: VANCOMYCIN 1,000 MG in DEXTROSE 5%-WATER - 250 ML IVPB ONE (22:00)
[2021-06-03] MEDS: APIXABAN 2.5 MG TABLET PO SCH (22:07)
[2021-06-04] MEDS ORDERED: PIPERACILLIN/TAZOBACTAM 3.375 GM VIAL IVPB ONE ×2 (01:35→09:21)
[2021-06-04] MEDS ORDERED: DEXTROSE 5%-WATER - 50 ML IVPB ONE ×2 (01:35→09:21)
[2021-06-04] MEDS: PIPERACILLIN/TAZOB 3.375 GM 3.375 GM in DEXTROSE 5%-WATER - 50 ML IVPB SCH ×2 (01:40→10:00)
[2021-06-04] MEDS: ACETAMINOPHEN 325 MG TABLET (FP) PO PRN (06:30)
[2021-06-04 07:49] LABS: MCH 27.3 pg (25.7-33.7); MCHC 32.3 g/dl (32.0-36.0); MEAN CELL VOLUME 84.7 fl (80-96); MEAN PLT VOLUME 9.1 fl (7.5-11.1); PLATELET COUNT 230 10^3/uL (134-434); RBC 4.02 M/mm3 (3.60-5.2); RDW 16.5 % (11.6-15.6); WHITE BLOOD COUNT 16.2 K/mm3 (4.0-10.8)
[2021-06-04 08:05] LABS: ADD RBC MORPHOLOGY YES
[2021-06-04 08:14] LABS: ALBUMIN 2.4 g/dl (3.4-5.0); BILIRUBIN,TOTAL 0.8 mg/dl (0.2-1); CALCIUM 7.8 mg/dl (8.5-10); CREATININE 0.4 mg/dl (0.55-1.3); MAGNESIUM 1.8 mg/dL (1.8-2.4); TOT PROT 5.3 g/dl (6.4-8.2)
[2021-06-04 09:04] LABS: PLATELET ESTIMATE ADEQUATE
[2021-06-04 09:05] LABS: ANISOCYTOSIS 1+
[2021-06-04] MEDS: APIXABAN 2.5 MG TABLET PO SCH ×2 (09:47→21:14)
[2021-06-04] MEDS: POLYETHYLENE GLYCOL (HEALTHYLAX) 3350 17 GM PACKET PO SCH (09:47)
[2021-06-04] MEDS: NIFEdipine E.R. 90 MG TABLET PO SCH (09:47)
[2021-06-04] MEDS: PANTOPRAZOLE 20 MG TABLET PO SCH (09:48)
[2021-06-04] MEDS: metoPROLOL SUCCINATE 25 MG TAB.SR.24H (FP) PO SCH (10:10)
[2021-06-04] MEDS: BACITRACIN 15 GM TUBE TOPICAL OINTMENT TP SCH (13:12)
[2021-06-04] MEDS: SODIUM CHLORIDE 1,000 ML IV SCH (13:12)
[2021-06-04] MEDS ORDERED: AMPICILLIN NA/SULBACTAM NA 3 GM VIAL ONE (16:00)
[2021-06-04] MEDS ORDERED: SODIUM CHLORIDE 100 ML IVPB ONE (16:01)
[2021-06-04] MEDS: AMPICILLIN NA/SULBACTAM NA 3 GM in SODIUM CHLORIDE 100 ML IVPB SCH (17:15)
[2021-06-05] MEDS ORDERED: AMPICILLIN NA/SULBACTAM NA 3 GM VIAL ONE ×2 (02:49→10:00)
[2021-06-05] MEDS ORDERED: SODIUM CHLORIDE 100 ML IVPB ONE ×2 (02:49→10:00)
[2021-06-05] MEDS: AMPICILLIN NA/SULBACTAM NA 3 GM in SODIUM CHLORIDE 100 ML IVPB SCH ×2 (02:53→10:09)
[2021-06-05 08:16] LABS: CALCIUM 8.3 mg/dl (8.5-10); CREATININE 0.4 mg/dl (0.55-1.3)
[2021-06-05 08:17] LABS: BASO % 1.5 % (0-2.0); EOS % 0.3 % (0-4.5); HEMATOCRIT 37.7 % (32.4-45.2); HEMOGLOBIN 12.5 GM/dl (10.7-15.3); LYMPH % 11.5 % (8-40); MCH 28.4 pg (25.7-33.7); MCHC 33.2 g/dl (32.0-36.0); MEAN CELL VOLUME 85.3 fl (80-96); MEAN PLT VOLUME 9.2 fl (7.5-11.1); NEUT % 80.7 % (42.8-82.8); PLATELET COUNT 269 10^3/uL (134-434); RBC 4.41 M/mm3 (3.60-5.2); RDW 16.9 % (11.6-15.6)
[2021-06-05] MEDS: POLYETHYLENE GLYCOL (HEALTHYLAX) 3350 17 GM PACKET PO SCH (10:10)
[2021-06-05] MEDS: metoPROLOL SUCCINATE 25 MG TAB.SR.24H (FP) PO SCH (10:10)
[2021-06-05] MEDS: APIXABAN 2.5 MG TABLET PO SCH ×2 (10:10→21:28)
[2021-06-05] MEDS: NIFEdipine E.R. 90 MG TABLET PO SCH (10:10)
[2021-06-05] MEDS: PANTOPRAZOLE 20 MG TABLET PO SCH (10:10)
[2021-06-05] MEDS: BACITRACIN 15 GM TUBE TOPICAL OINTMENT TP SCH (10:15)
[2021-06-05] MEDS ORDERED: PIPERACILLIN/TAZOBACTAM 3.375 GM VIAL IVPB ONE ×2 (16:01→22:16)
[2021-06-05] MEDS ORDERED: DEXTROSE 5%-WATER - 50 ML IVPB ONE ×2 (16:01→22:16)
[2021-06-05] MEDS: PIPERACILLIN/TAZOB 3.375 GM 3.375 GM in DEXTROSE 5%-WATER - 50 ML IVPB SCH ×2 (16:05→22:51)
[2021-06-05] MEDS: ACETAMINOPHEN 325 MG TABLET (FP) PO PRN (17:23)
[2021-06-05] MEDS: SODIUM CHLORIDE 1,000 ML IV SCH (20:11)
[2021-06-06] MEDS ORDERED: PIPERACILLIN/TAZOBACTAM 3.375 GM VIAL IVPB ONE ×3 (06:25→20:55)
[2021-06-06] MEDS ORDERED: DEXTROSE 5%-WATER - 50 ML IVPB ONE ×3 (06:25→20:55)
[2021-06-06] MEDS: PIPERACILLIN/TAZOB 3.375 GM 3.375 GM in DEXTROSE 5%-WATER - 50 ML IVPB SCH ×2 (06:47→15:45)
[2021-06-06 08:03] LABS: BASO % 1.7 % (0-2.0); CALCIUM 8.1 mg/dl (8.5-10); CREATININE 0.3 mg/dl (0.55-1.3); EOS % 1.7 % (0-4.5); HEMATOCRIT 34.8 % (32.4-45.2); HEMOGLOBIN 11.2 GM/dl (10.7-15.3); LYMPH % 15.1 % (8-40); MCH 27.5 pg (25.7-33.7); MCHC 32.3 g/dl (32.0-36.0); MEAN CELL VOLUME 85.3 fl (80-96); MEAN PLT VOLUME 9.3 fl (7.5-11.1); MONO % 10.9 % (3.8-10.2); NEUT % 70.6 % (42.8-82.8); PLATELET COUNT 262 10^3/uL (134-434); RBC 4.08 M/mm3 (3.60-5.2); RDW 16.8 % (11.6-15.6); WHITE BLOOD COUNT 14.4 K/mm3 (4.0-10.8)
[2021-06-06] MEDS ORDERED: PT OWN MED DRAWER 7, Y5N ONE (09:19)
[2021-06-06] MEDS: NIFEdipine E.R. 90 MG TABLET PO SCH (09:36)
[2021-06-06] MEDS: metoPROLOL SUCCINATE 25 MG TAB.SR.24H (FP) PO SCH (09:36)
[2021-06-06] MEDS: POLYETHYLENE GLYCOL (HEALTHYLAX) 3350 17 GM PACKET PO SCH (09:37)
[2021-06-06] MEDS: APIXABAN 2.5 MG TABLET PO SCH ×2 (09:37→21:12)
[2021-06-06] MEDS: PANTOPRAZOLE 20 MG TABLET PO SCH (09:37)
[2021-06-06] MEDS: BACITRACIN 15 GM TUBE TOPICAL OINTMENT TP SCH (09:37)
[2021-06-06] MEDS ORDERED: ALBUTEROL SO4 2.5/IPRATROPIUM 0.5 INH SOL 3 ML VIAL.NEB. NEB PRN (14:29)
[2021-06-06] MEDS: ACETAMINOPHEN 325 MG TABLET (FP) PO PRN (21:13)
[2021-06-07] MEDS ORDERED: PIPERACILLIN/TAZOBACTAM 3.375 GM VIAL IVPB ONE ×3 (06:26→22:22)
[2021-06-07] MEDS ORDERED: DEXTROSE 5%-WATER - 50 ML IVPB ONE ×3 (06:26→22:22)
[2021-06-07] MEDS: PIPERACILLIN/TAZOB 3.375 GM 3.375 GM in DEXTROSE 5%-WATER - 50 ML IVPB SCH ×4 (06:34→23:02)
[2021-06-07 08:37] LABS: BILIRUBIN,TOTAL 0.6 mg/dl (0.2-1); CALCIUM 7.8 mg/dl (8.5-10); CREATININE 0.3 mg/dl (0.55-1.3); MAGNESIUM 1.7 mg/dL (1.8-2.4); PHOSPHOROUS 2.9 mg/dl (2.5-4.9)
[2021-06-07 09:24] LABS: BASO % 1.2 % (0-2.0); EOS % 2.2 % (0-4.5); HEMATOCRIT 32.6 % (32.4-45.2); HEMOGLOBIN 10.9 GM/dl (10.7-15.3); LYMPH % 19.6 % (8-40); MCH 28.4 pg (25.7-33.7); MCHC 33.5 g/dl (32.0-36.0); MONO % 12.8 % (3.8-10.2); NEUT % 64.2 % (42.8-82.8); PLATELET COUNT 301 10^3/uL (134-434); RBC 3.84 M/mm3 (3.60-5.2); RDW 16.8 % (11.6-15.6); WHITE BLOOD COUNT 12.7 K/mm3 (4.0-10.8)
[2021-06-07] MEDS ORDERED: MAGNESIUM SULF 50% (8.12 MEQ/2 ML-1 GM VIAL) IVPB ONE (09:56)
[2021-06-07] MEDS ORDERED: POTASSIUM CHLORIDE TABS 20 MEQ TABLET.ER (FP) PO ONE (10:15)
[2021-06-07] MEDS ORDERED: MAGNESIUM 1GM/D5W - 1 GM/100 ML IVPB IVPB ONE (10:30)
[2021-06-07] MEDS: NIFEdipine E.R. 90 MG TABLET PO SCH (10:37)
[2021-06-07] MEDS: PANTOPRAZOLE 20 MG TABLET PO SCH (10:37)
[2021-06-07] MEDS: APIXABAN 2.5 MG TABLET PO SCH ×2 (10:37→21:27)
[2021-06-07] MEDS: metoPROLOL SUCCINATE 25 MG TAB.SR.24H (FP) PO SCH (10:37)
[2021-06-07] MEDS: BACITRACIN 15 GM TUBE TOPICAL OINTMENT TP SCH (10:38)
[2021-06-07] MEDS: POLYETHYLENE GLYCOL (HEALTHYLAX) 3350 17 GM PACKET PO SCH (10:38)
[2021-06-07] MEDS: SODIUM CHLORIDE 1,000 ML IV SCH (17:00)
[2021-06-08] MEDS: SODIUM CHLORIDE 1,000 ML IV SCH (06:33)
[2021-06-08] MEDS: PIPERACILLIN/TAZOB 3.375 GM 3.375 GM in DEXTROSE 5%-WATER - 50 ML IVPB SCH ×3 (06:54→23:42)
[2021-06-08 08:12] LABS: EOS % 0.8 % (0-4.5); HEMATOCRIT 35.3 % (32.4-45.2); HEMOGLOBIN 11.8 GM/dl (10.7-15.3); LYMPH % 18.3 % (8-40); MCH 28.1 pg (25.7-33.7); MCHC 33.4 g/dl (32.0-36.0); MEAN CELL VOLUME 84.2 fl (80-96); MEAN PLT VOLUME 8.9 fl (7.5-11.1); MONO % 8.6 % (3.8-10.2); NEUT % 71.3 % (42.8-82.8); PLATELET COUNT 368 10^3/uL (134-434); RDW 16.7 % (11.6-15.6); WHITE BLOOD COUNT 14.6 K/mm3 (4.0-10.8)
[2021-06-08 08:18] LABS: CALCIUM 7.7 mg/dl (8.5-10); CREATININE 0.3 mg/dl (0.55-1.3); MAGNESIUM 1.8 mg/dL (1.8-2.4)
[2021-06-08] MEDS: POLYETHYLENE GLYCOL (HEALTHYLAX) 3350 17 GM PACKET PO SCH (10:00)
[2021-06-08] MEDS: APIXABAN 2.5 MG TABLET PO SCH ×2 (10:01→21:44)
[2021-06-08] MEDS: ACETAMINOPHEN 325 MG TABLET (FP) PO PRN (10:01)
[2021-06-08] MEDS: NIFEdipine E.R. 90 MG TABLET PO SCH (10:01)
[2021-06-08] MEDS: CALCIUM (OYSTER SHELL) 500 MG TABLET (FP) PO SCH (10:01)
[2021-06-08] MEDS: PANTOPRAZOLE 20 MG TABLET PO SCH (10:01)
[2021-06-08] MEDS: BACITRACIN 15 GM TUBE TOPICAL OINTMENT TP SCH (10:30)
[2021-06-08] MEDS: VANCOMYCIN 1 GRAM (PRE-DOCKED) 1 GM/250 ML BAG IVPB SCH (13:10)
[2021-06-08] MEDS ORDERED: PIPERACILLIN/TAZOBACTAM 3.375 GM VIAL IVPB ONE (21:26)
[2021-06-08] MEDS ORDERED: DEXTROSE 5%-WATER - 50 ML IVPB ONE (21:27)
[2021-06-09] MEDS ORDERED: PIPERACILLIN/TAZOBACTAM 3.375 GM VIAL IVPB ONE ×3 (06:03→21:09)
[2021-06-09] MEDS ORDERED: DEXTROSE 5%-WATER - 50 ML IVPB ONE ×3 (06:04→21:10)
[2021-06-09] MEDS: PIPERACILLIN/TAZOB 3.375 GM 3.375 GM in DEXTROSE 5%-WATER - 50 ML IVPB SCH ×3 (06:06→22:13)
[2021-06-09 08:25] LABS: BASO % 2.6 % (0-2.0); EOS % 0.9 % (0-4.5); HEMATOCRIT 37.1 % (32.4-45.2); LYMPH % 15.7 % (8-40); MCH 27.4 pg (25.7-33.7); MCHC 32.5 g/dl (32.0-36.0); MEAN CELL VOLUME 84.4 fl (80-96); MEAN PLT VOLUME 9.2 fl (7.5-11.1); MONO % 7.5 % (3.8-10.2); NEUT % 73.3 % (42.8-82.8); PLATELET COUNT 459 10^3/uL (134-434); RBC 4.39 M/mm3 (3.60-5.2); RDW 16.4 % (11.6-15.6)
[2021-06-09 08:28] LABS: CREATININE 0.3 mg/dl (0.55-1.3)
[2021-06-09] MEDS: APIXABAN 2.5 MG TABLET PO SCH ×2 (09:33→21:12)
[2021-06-09] MEDS: POLYETHYLENE GLYCOL (HEALTHYLAX) 3350 17 GM PACKET PO SCH (09:33)
[2021-06-09] MEDS: CALCIUM (OYSTER SHELL) 500 MG TABLET (FP) PO SCH (09:33)
[2021-06-09] MEDS: PANTOPRAZOLE 20 MG TABLET PO SCH (09:33)
[2021-06-09] MEDS: NIFEdipine E.R. 90 MG TABLET PO SCH (09:33)
[2021-06-09] MEDS: BACITRACIN 15 GM TUBE TOPICAL OINTMENT TP SCH (09:34)
[2021-06-09] MEDS: VANCOMYCIN 1 GRAM (PRE-DOCKED) 1 GM/250 ML BAG IVPB SCH (12:41)
[2021-06-09] MEDS: COLLAGENASE CLOSTRIDIUM HIST. 30 GRAMS TUBE TP SCH (16:38)
[2021-06-10] MEDS: PIPERACILLIN/TAZOB 3.375 GM 3.375 GM in DEXTROSE 5%-WATER - 50 ML IVPB SCH (07:14)
[2021-06-10] MEDS: CALCIUM (OYSTER SHELL) 500 MG TABLET (FP) PO SCH (09:29)
[2021-06-10] MEDS: APIXABAN 2.5 MG TABLET PO SCH ×2 (09:29→21:19)
[2021-06-10] MEDS: POLYETHYLENE GLYCOL (HEALTHYLAX) 3350 17 GM PACKET PO SCH (09:29)
[2021-06-10] MEDS: PANTOPRAZOLE 20 MG TABLET PO SCH (09:30)
[2021-06-10] MEDS: NIFEdipine E.R. 90 MG TABLET PO SCH (09:30)
[2021-06-10] MEDS: COLLAGENASE CLOSTRIDIUM HIST. 30 GRAMS TUBE TP SCH (09:31)
[2021-06-10 09:40] LABS: BASO % 2.2 % (0-2.0); EOS % 0.9 % (0-4.5); HEMATOCRIT 33.4 % (32.4-45.2); HEMOGLOBIN 10.7 GM/dl (10.7-15.3); LYMPH % 16.1 % (8-40); MCH 27.2 pg (25.7-33.7); MCHC 32.1 g/dl (32.0-36.0); MEAN CELL VOLUME 84.6 fl (80-96); MEAN PLT VOLUME 8.6 fl (7.5-11.1); MONO % 7.1 % (3.8-10.2); NEUT % 73.7 % (42.8-82.8); PLATELET COUNT 440 10^3/uL (134-434); RBC 3.95 M/mm3 (3.60-5.2); RDW 16.4 % (11.6-15.6); WHITE BLOOD COUNT 17.1 K/mm3 (4.0-10.8)
[2021-06-10] MEDS: BACITRACIN 15 GM TUBE TOPICAL OINTMENT TP SCH (10:31)
[2021-06-10 10:40] LABS: ALBUMIN 1.8 g/dl (3.4-5.0); BILIRUBIN,TOTAL 0.7 mg/dl (0.2-1); CALCIUM 7.9 mg/dl (8.5-10); CREATININE 0.6 mg/dl (0.55-1.3); MAGNESIUM 1.9 mg/dL (1.8-2.4); TOT PROT 5.1 g/dl (6.4-8.2)
[2021-06-10] MEDS: CEFTRIAXONE 1 GM in DEXTROSE 5%-WATER - 50 ML IVPB SCH (13:45)
[2021-06-10] MEDS ORDERED: FUROSEMIDE 40 MG/4 ML INJECTABLE VIAL IVPUSH ONE (14:53)
[2021-06-11 07:37] LABS: EOS % 1.1 % (0-4.5); HEMATOCRIT 37.1 % (32.4-45.2); HEMOGLOBIN 11.9 GM/dl (10.7-15.3); MCH 27.1 pg (25.7-33.7); MCHC 31.9 g/dl (32.0-36.0); MEAN CELL VOLUME 85.1 fl (80-96); MEAN PLT VOLUME 8.8 fl (7.5-11.1); MONO % 8.6 % (3.8-10.2); NEUT % 73.3 % (42.8-82.8); PLATELET COUNT 572 10^3/uL (134-434); RBC 4.37 M/mm3 (3.60-5.2); RDW 16.1 % (11.6-15.6); WHITE BLOOD COUNT 16.7 K/mm3 (4.0-10.8)
[2021-06-11 07:59] LABS: BILIRUBIN,TOTAL 0.6 mg/dl (0.2-1); CALCIUM 8.4 mg/dl (8.5-10); TOT PROT 5.7 g/dl (6.4-8.2)
[2021-06-11] MEDS ORDERED: cefTRIAXone SODIUM 1 GM VIAL ONE (10:03)
[2021-06-11] MEDS ORDERED: DEXTROSE 5%-WATER - 50 ML IVPB ONE (10:03)
[2021-06-11] MEDS: POLYETHYLENE GLYCOL (HEALTHYLAX) 3350 17 GM PACKET PO SCH (10:06)
[2021-06-11] MEDS: CEFTRIAXONE 1 GM in DEXTROSE 5%-WATER - 50 ML IVPB SCH (10:07)
[2021-06-11] MEDS: NIFEdipine E.R. 90 MG TABLET PO SCH (10:07)
[2021-06-11] MEDS: PANTOPRAZOLE 20 MG TABLET PO SCH (10:08)
[2021-06-11] MEDS: FUROSEMIDE 40 MG/4 ML INJECTABLE VIAL IVPUSH SCH (10:08)
[2021-06-11] MEDS: CALCIUM (OYSTER SHELL) 500 MG TABLET (FP) PO SCH (10:08)
[2021-06-11] MEDS: APIXABAN 2.5 MG TABLET PO SCH ×2 (10:10→21:31)
[2021-06-11] MEDS: BACITRACIN 15 GM TUBE TOPICAL OINTMENT TP SCH (10:11)
[2021-06-11] MEDS: COLLAGENASE CLOSTRIDIUM HIST. 30 GRAMS TUBE TP SCH (10:13)
[2021-06-11 10:28] LABS: N-TERMINAL BNP 2277.9 pg/ml (5-450)
[2021-06-11 17:37] VITALS: BMI 29.2
[2021-06-12 08:06] LABS: HEMOGLOBIN 11.4 GM/dl (10.7-15.3); MCH 27.3 pg (25.7-33.7); MCHC 32.6 g/dl (32.0-36.0); MEAN CELL VOLUME 83.6 fl (80-96); MEAN PLT VOLUME 8.4 fl (7.5-11.1); PLATELET COUNT 568 10^3/uL (134-434); RBC 4.19 M/mm3 (3.60-5.2); RDW 16.3 % (11.6-15.6); WHITE BLOOD COUNT 15.4 K/mm3 (4.0-10.8)
[2021-06-12 08:12] LABS: ALBUMIN 1.9 g/dl (3.4-5.0); BILIRUBIN,TOTAL 0.6 mg/dl (0.2-1); CALCIUM 7.9 mg/dl (8.5-10); CREATININE 1.1 mg/dl (0.55-1.3); MAGNESIUM 1.9 mg/dL (1.8-2.4); TOT PROT 5.6 g/dl (6.4-8.2)
[2021-06-12 08:18] LABS: ADD RBC MORPHOLOGY YES
[2021-06-12 09:14] LABS: PLATELET ESTIMATE INCREASED PLTS
[2021-06-12] MEDS ORDERED: cefTRIAXone SODIUM 1 GM VIAL ONE (10:00)
[2021-06-12] MEDS ORDERED: DEXTROSE 5%-WATER - 50 ML IVPB ONE (10:01)
[2021-06-12] MEDS: POTASSIUM CHLORIDE TABS 20 MEQ TABLET.ER (FP) PO SCH ×2 (10:09→15:36)
[2021-06-12] MEDS: NIFEdipine E.R. 90 MG TABLET PO SCH (10:09)
[2021-06-12] MEDS: APIXABAN 2.5 MG TABLET PO SCH ×2 (10:09→21:10)
[2021-06-12] MEDS: PANTOPRAZOLE 20 MG TABLET PO SCH (10:09)
[2021-06-12] MEDS: POLYETHYLENE GLYCOL (HEALTHYLAX) 3350 17 GM PACKET PO SCH (10:09)
[2021-06-12] MEDS: CALCIUM (OYSTER SHELL) 500 MG TABLET (FP) PO SCH (10:09)
[2021-06-12] MEDS: CEFTRIAXONE 1 GM in DEXTROSE 5%-WATER - 50 ML IVPB SCH (10:10)
[2021-06-12] MEDS: FUROSEMIDE 40 MG/4 ML INJECTABLE VIAL IVPUSH SCH (10:10)
[2021-06-12] MEDS: COLLAGENASE CLOSTRIDIUM HIST. 30 GRAMS TUBE TP SCH (10:11)
[2021-06-12] MEDS: BACITRACIN 15 GM TUBE TOPICAL OINTMENT TP SCH (10:12)
[2021-06-13 09:25] VITALS: BP 118/79; TEMP 97.9
[2021-06-13] MEDS: FUROSEMIDE 40 MG/4 ML INJECTABLE VIAL IVPUSH SCH (10:45)
[2021-06-13] MEDS: NIFEdipine E.R. 90 MG TABLET PO SCH (10:45)
[2021-06-13] MEDS: APIXABAN 2.5 MG TABLET PO SCH (10:45)
[2021-06-13] MEDS: PANTOPRAZOLE 20 MG TABLET PO SCH (10:45)
[2021-06-13] MEDS: CALCIUM (OYSTER SHELL) 500 MG TABLET (FP) PO SCH (10:45)
[2021-06-13] MEDS: POLYETHYLENE GLYCOL (HEALTHYLAX) 3350 17 GM PACKET PO SCH (10:45)
[2021-06-13] MEDS: BACITRACIN 15 GM TUBE TOPICAL OINTMENT TP SCH (10:46)
[2021-06-13] MEDS: COLLAGENASE CLOSTRIDIUM HIST. 30 GRAMS TUBE TP SCH (10:46)
[2021-06-13 11:25] VITALS: PULSE 94
== END 2021-06-13 12:15 | disposition home or self-care (01) | DRG 871 ==
LOC: FER 11:15 → UNDOADMIN 13:54 → FM/S 13:54
PROVIDERS: ADMIT Internal Medicine; ATTEND Nurse Practitioner Acute Care
DX: A41.9 Sepsis, unspecified organism (principal); G93.41 Metabolic encephalopathy; I50.33 Acute on chronic diastolic (congestive) heart failure; N39.0 Urinary tract infection, site not specified; L03.115 Cellulitis of right lower limb; I48.91 Unspecified atrial fibrillation; Z79.01 Long term (current) use of anticoagulants; K59.00 Constipation, unspecified; K59.09 Other constipation; I27.20 Pulmonary hypertension, unspecified; E87.6 Hypokalemia
CPT/HCPCS: 36415; 70450-TC; 71045-TC-FY; 71250-TC; 80048; 80053; 81003; 81015; 82550; 83605; 83735; 83880; 84100; 84484; 85025; 85610; 85730; 87040; 87070; 87076; 87077; 87086; 87186; 87205; 93005; 93306-TC; 93970-TC; 94640; 97161-GP; 99285-25; C9803; J0131; U0003; U0005

== ENCOUNTER 2021-08-19 08:15 | Emergency (ER) | payer OTHER, MEDICARE ==
[2021-08-19 08:41] VITALS: TEMP 97.6; BMI 23.6
[2021-08-19] MEDS ORDERED: BISACODYL 10 MG SUPP.RECT PR ONE (09:17)
[2021-08-19] MEDS ORDERED: BISACODYL 10 MG SUPP.RECT ONE (09:20)
[2021-08-19 10:08] VITALS: BP 105/64; PULSE 66
[2021-08-19 10:16] LABS: EPITHELIAL CELLS FEW /hpf
== END 2021-08-19 10:40 | disposition home or self-care (01) ==
LOC: FER 08:15
DX: R33.9 Retention of urine, unspecified (principal); K59.01 Slow transit constipation
CPT/HCPCS: 81003; 81015; 87086; 87186; 99283-25

== ENCOUNTER 2022-07-15 16:33 | Inpatient (IN) | payer OTHER, MEDICARE ==
[2022-07-15] MEDS ORDERED: SODIUM CHLORIDE 1,000 ML IV ONE (17:18)
[2022-07-15 17:54] LABS: EPITHELIAL CELLS FEW /hpf
[2022-07-15 18:00] LABS: HEMATOCRIT 43.5 % (32.4-45.2); HEMOGLOBIN 15.2 G/dL (10.7-15.3); MCH 29.6 pg (25.7-33.7); MCHC 34.9 g/dl (32.0-36.0); MEAN CELL VOLUME 84.9 fl (80-96); MEAN PLT VOLUME 9.1 fl (7.5-11.1); PLATELET COUNT 302.6 10^3/uL (134-434); RBC 5.12 10^6/uL (3.60-5.2); RDW 17.3 % (11.6-15.6); WHITE BLOOD COUNT 18.4 10^3/uL (4.0-10.8)
[2022-07-15] MEDS ORDERED: CEFTRIAXONE 1 GM in DEXTROSE 5%-WATER - 50 ML IVPB ONE (18:09)
[2022-07-15] MEDS ORDERED: cefTRIAXone SODIUM 1 GM VIAL ONE (18:14)
[2022-07-15 18:39] LABS: BILIRUBIN,TOTAL 1.2 mg/dl (0.2-1); CALCIUM 8.9 mg/dl (8.5-10); CREATININE 0.7 mg/dl (0.55-1.3); MAGNESIUM 2.3 mg/dL (1.8-2.4); TOT PROT 6.5 g/dl (6.4-8.2)
[2022-07-15 18:52] LABS: ANISOCYTOSIS 1+; MACROCYTOSIS 2+; PLATELET ESTIMATE ADEQUATE
[2022-07-15] MEDS ORDERED: POTASSIUM CHLORIDE TABS 20 MEQ TABLET.ER (FP) PO ONE ×2 (19:01→19:06)
[2022-07-15] MEDS ORDERED: POTASSIUM CHLORIDE 20 MEQ PREMIX IVPB 100 ML IVPB ONE (20:56)
[2022-07-15] MEDS ORDERED: KCL 10 MEQ IVPB 20 MEQ/200 ML INFUS.BAG IVPB ONE (21:03)
[2022-07-15] MEDS ORDERED: SODIUM CHLORIDE 0.9% 500 ML INFUS.BAG IV ONE (21:13)
[2022-07-15] MEDS ORDERED: SODIUM CHLORIDE 1,000 ML IV SCH (21:30)
[2022-07-15] MEDS: APIXABAN 2.5 MG TABLET PO SCH (23:08)
[2022-07-16] MEDS ORDERED: CEFTRIAXONE 1 GM in DEXTROSE 5%-WATER - 50 ML IVPB ONE (09:00)
[2022-07-16] MEDS: PANTOPRAZOLE 20 MG TABLET PO SCH (09:46)
[2022-07-16] MEDS: APIXABAN 2.5 MG TABLET PO SCH ×2 (09:46→21:25)
[2022-07-16] MEDS: LACTOBACILLUS ACIDOPHILUS 1 TABLET PO SCH (09:46)
[2022-07-16 10:13] LABS: BASO % 0.4 % (0-2.0); EOS % 0.3 % (0-4.5); HEMATOCRIT 38.1 % (32.4-45.2); HEMOGLOBIN 12.5 GM/dL (10.7-15.3); LYMPH % 35.6 % (8-40); MCH 28.4 pg (25.7-33.7); MEAN CELL VOLUME 86.3 fl (80-96); MEAN PLT VOLUME 9.1 fl (7.5-11.1); MONO % 12.2 % (3.8-10.2); NEUT % 51.5 % (42.8-82.8); PLATELET COUNT 271 10^3/uL (134-434); RBC 4.41 M/mm3 (3.60-5.2); WHITE BLOOD COUNT 13.4 K/mm3 (4.0-10.0)
[2022-07-16 10:18] LABS: CALCIUM 8.2 mg/dL (8.5-10.1)
[2022-07-16 10:19] LABS: BLOOD UREA NITROGEN 67.4 mg/dL (7-18)
[2022-07-16 10:22] LABS: CREATININE 0.6 mg/dL (0.55-1.3)
[2022-07-17 06:41] VITALS: RESP 18
[2022-07-17 08:23] LABS: HEMATOCRIT 37.7 % (32.4-45.2); HEMOGLOBIN 12.9 G/dL (10.7-15.3); MCH 29.9 pg (25.7-33.7); MCHC 34.2 g/dl (32.0-36.0); MEAN CELL VOLUME 87.5 fl (80-96); MEAN PLT VOLUME 9.1 fl (7.5-11.1); PLATELET COUNT 267.2 10^3/uL (134-434); RBC 4.31 10^6/uL (3.60-5.2); RDW 17.6 % (11.6-15.6); WHITE BLOOD COUNT 12.2 10^3/uL (4.0-10.8)
[2022-07-17 08:29] LABS: CALCIUM 8.4 mg/dl (8.5-10); CREATININE 0.5 mg/dl (0.55-1.3)
[2022-07-17] MEDS: LACTOBACILLUS ACIDOPHILUS 1 TABLET PO SCH (09:25)
[2022-07-17] MEDS: PANTOPRAZOLE 20 MG TABLET PO SCH (09:25)
[2022-07-17] MEDS: APIXABAN 2.5 MG TABLET PO SCH (09:26)
[2022-07-17] MEDS ORDERED: FUROSEMIDE 40 MG TABLET (FP) PO SCH (10:00)
[2022-07-17] MEDS ORDERED: CEFTRIAXONE 1 GM in DEXTROSE 5%-WATER - 50 ML IVPB SCH (10:00)
[2022-07-17 10:19] VITALS: BP 150/87; PULSE 80; TEMP 98.6
[2022-07-17 11:18] VITALS: BMI 19.6
== END 2022-07-17 12:15 | disposition home or self-care (01) | DRG 690 ==
LOC: FER 16:33 → FM/S 19:08
PROVIDERS: ADMIT Specialist; ATTEND Internal Medicine
DX: N39.0 Urinary tract infection, site not specified (principal); E87.1 Hypo-osmolality and hyponatremia; K86.2 Cyst of pancreas; E87.6 Hypokalemia; I48.91 Unspecified atrial fibrillation; G14 Postpolio syndrome; I10 Essential (primary) hypertension; R19.7 Diarrhea, unspecified; D72.829 Elevated white blood cell count, unspecified; E86.0 Dehydration; Z99.3 Dependence on wheelchair
CPT/HCPCS: 36415; 71045-TC-FY; 80048; 80053; 81003; 81015; 83735; 85025; 85027; 87045; 87046; 87086; 87186; 93005; 99285-25; C9803-CS; U0003; U0005

== ENCOUNTER 2022-07-28 10:49 | Emergency (ER) | payer OTHER, MEDICARE ==
[2022-07-28 10:59] VITALS: BP 110/67; PULSE 89; RESP 18; TEMP 97.8; BMI 20.2
== END 2022-07-28 13:35 | disposition home or self-care (01) ==
LOC: FER 10:49
DX: K59.00 Constipation, unspecified (principal)
CPT/HCPCS: 99282-25